=== PATIENT | female | born 1980 | race Caucasian/White ===

== ENCOUNTER → 2016-10-20 | Outpatient (CLI) | payer MEDICAID ==
[~2016-10-20] MED LIST: ATIVAN1 MG PO; BACTRIM DS 8001 TAB PO; BACTRIM DS TAB1 EACH PO; BACTROBAN2% TP; CIPRO 500MG TA500 MG PO; CLONIDINE HCL0.1 M1 PO; FLEXERIL10 MG PO; KEFLEX 500MG.500 MG PO; LORTAB 5/500 501 TAB PO; MEDROL 4MG. DOSE4 MG PO; MELOXICAM7.5 MG PO; NOMEDS; NORCO 325 MG-51 TAB PO; PHENERGAN25 M3 PO; PROMETHAZINE HC25 M1 PO; PROTONIX 40MG T40 MG PO; SEPTRA DS 800 M1 TAB PO; SERTRALINE 50MG50 MG PO; SULFAMETHOXAZOL1 TA6 PO; VIBRAMYCIN 100100 MG PO; VICODIN 5/500 T1 TAB PO; VISTARIL25 M1 PO; ZITHROMAX Z PA250 MG PO; ZOFRAN ODT4 MG PO; ZOFRAN ODT8 M1 PO
[2016-10-20 11:36] LABS: HEMOGLOBIN 16.5 g/dL (12.2-16.2); LYMPH # 2.7 K/mm3 (0.7-4.5); LYMPH % 35.3 % (10-50.0)
[2016-10-20 14:31] LABS: BUN 6 mg/dL (7-18)
[2016-10-20 14:55] LABS: GFR (ESTIMATED) 138 ML/MIN (59-)
== END ==
LOC: LAB 11:15
PROVIDERS: Surgery
DX: K80.00 Calculus of gallbladder with acute cholecystitis without obstruction (principal); Z01.812 Encounter for preprocedural laboratory examination

== ENCOUNTER 2016-10-22 12:04 | Observation (INO) | payer MEDICAID ==
[2016-10-22] VITALS (17 sets, daily range): BP systolic 106–127; BP diastolic 59–95
[~2016-10-22] VITALS: Ht 160 cm; Wt 76.3 kg
[~2016-10-22 12:04] MED LIST changes: -NORCO 325 MG-51 TAB PO; -PHENERGAN25 M3 PO; -PROTONIX 40MG T40 MG PO
--- NOTE | 2016-10-22 12:22 | Emergency Room Report ---
History of Present Illness Time Seen by 1221 Presenting Problem in Triage Pt arrived:Walked Presenting Problem:PT WAS DIAGNOSED WITH GALLSTONES A COUPLE OF WEEKS AGO AND IS SCHEDULED FOR SURGERY ON THE . 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 N Clinical Suspician of Infection? N Mental Status: 1 - Regular (Normal Baseline) Sepsis Risk:Low Sepsis Risk Have you (or family members/close friends) recently traveled outside the [place]? N If Yes, where/when: Have you had exposure to infectious disease within the past month? N TB? Other? Specify: Source patient, RN notes reviewed, family, RN/MD Exam Limitations no limitations Comment Patient is here today with intractable nausea and vomiting, for the past 2-3 days, unable to hold anything down. She stated that she was diagnosed with gallstones approximately 2 weeks ago, scheduled to have elective cholecystectomy on 10/30 w/ Dr Liriano. Patient denies any fever, diarrhea, recent travel or exposure to sick contacts. Patient was prescribed Zofran, however this does not appear to manage her symptoms at this time any longer. Patient's condition appears to be deteriorating recently, at this time being unable to hold any solids or liquids down. ALLERGIES Coded Allergies: Penicillins (10/22/16) Home Medications Active Scripts Ondansetron (Zofran 4MG Odt) 4 MG PO Q6HP PRN NAUSEA AND VOMITING #20 TAB Prov: 08/25/16 Hydroxyzine Pamoate (Vistaril 25MG CAP) 25 MG PO Q6HP PRN vomiting #10 CAP Prov: 09/11/16 Ondansetron (Zofran Odt) 8 MG PO TIDP PRN nausea/vomiting #10 Ref 30 Prov: 08/28/16 PROMETHAZINE HCL (Promethazine 25mg Tab) 25 MG PO Q6HP PRN NAUSEA AND VOMITING #12 TAB Prov: 08/22/16 Reported Medications No Home Medications (NO HOME MEDICATIONS) CLONIDINE HCL (Clonidine 0.1MG) 0.1 MG PO NIGHTLY #30 Meloxicam (Meloxicam 7.5MG) 7.5 MG PO DAILY #30 Sertraline Hcl (Sertraline 50MG) 25 MG PO DAILY #45 History Medical History General CAD? No Angina: No [place]: No Hypertension? No Hyperlipidemia? No CHF? No DVT? No PE? No COPD? No Asthma? No Anemia? No GERD? No Gastric ulcers? No GI Bleed? No Hernia? No Thyroid Problems? No Hypothyroidism? No CVA? No Seizures? No Diabetes? No Renal Insuffiency? No End Stage Renal Disease? No UTI? No Stones? No BPH? No GB Disease: No Nephritic Syndrome? No Asplenia? No Hepatitis? No Sickle Cell Disease? No Arthritis? No Migraines? No Cataracts? No Glaucoma? No MRSA? Yes HIV? No TB? No Anxiety? No Depression? Yes Cancer? Yes Site: CERVICAL More? No Immunization Hx DT/Tetanus 1-4 YRS Surgical Hx Previous Surgery?Y CYROTHERAPY/ABD. 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 Social History Smoking Hx Smoker: Current Every Day Smoker Tobacco: Yes Type Cigarettes Packs/day < 1 Pack Alcohol Alcohol: Yes Review of Systems All Other Systems Reviewed and Negative Gastrointestinal abdominal pain, denies diarrhea, nausea, vomiting Physical Exam Vital Signs Vital Signs Date Time Temp Pulse Resp B/P Pulse O2 O2 Flow FiO2 Ox Delivery Rate 10/22 1620 97.1 75 18 121/60 96 ROOM AIR 10/22 1615 97.1 75 18 121/60 97 10/22 1605 97.5 68 18 125/74 99 ROOM AIR 10/22 1555 77 18 122/73 97 ROOM AIR 10/22 1549 82 16 122/95 95 10/22 1546 97.7 / 1545 18 10/22 1545 76 20 133/92 97 ROOM AIR 10/22 1538 97.7 75 14 116/80 95 10/22 1535 97.7 75 18 116/80 95 ROOM AIR 10/22 1411 98.6 82 16 122/95 98 /10 1346 98.6 82 16 122/95 98 / 1300 98.6 82 16 122/95 98 / 1213 98.6 82 16 122/95 98 General Appearance normal appearance, WD/WN, moderate distress Respiratory Status Yes: trachea midline, chest symmetrical, non tender chest. No: respiratory distress. Lung Sounds bilateral: normal breath sounds, lungs clear. 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 No Comment 1315 - case dw/ Dr Liriano, presenting the emergency room, evaluating patient. Advised general surgeon of patient's presentation and findings, agreeable to accept patient for hospitalization and immediate transfer to OR for [facility]. Care transferred Dr. Liriano at this time. Results/Orders Laboratory Tests 10/22/16 1222: Sodium 138, Potassium 4.0, Chloride 102, Carbon Dioxide 27, BUN 5 L, Creatinine 0.6, Estimated Creat Clear 138, Estimated GFR (MDRD) 112, Glucose 94, Calcium 9.2, Total Bilirubin 0.8, AST 21, ALT 25, Alkaline Phosphatase 76, Total Protein 8.4 H, Albumin 4.1, Globulin 4.3 H, Albumin/Globulin Ratio 1.0 L, Amylase 41, Lipase 112, WBC 9.7, RBC 5.34, Hgb 16.0, Hct 48.7 H, MCV 91.2, RDW 14.7, Plt Count 240, Gran % 68.0, Gran # 6.6, Lymphocytes % 28.5, Monocytes % 3.6, Lymphocytes # 2.8, Monocytes # 0.3, PUBS MCHC 32.9, MCH 30.0 Current Medication Orders Sig/Gabby Start time Last Medication Dose Route Stop Time Status Admin Sertraline HCl 25 MG DAILY 10/23 0900 AC PO Clonidine HCl 0.1 MG QHS 10/22 2100 AC PO Ketorolac 30 MG ONCE ONE 10/22 1545 DC Tromethamine IV 10/22 1546 Lactated Ringer's 1,000 ML .Q25H 10/22 1545 DC 10/22 IV 10/22 1740 1819 Meperidine HCl 12.5 MG [id number] PRN 10/22 1545 DC IV 10/22 1740 Meperidine HCl 25 MG [id number] PRN 10/22 1545 DC IV 10/22 1740 Midazolam HCl 2 MG ONCE ONE 10/22 1545 DC 08 IV 08 1546 1545 Morphine Sulfate 2 MG [id number] PRN 10/22 1545 DC IV 10/22 1740 Ondansetron HCl 4 MG Q4HP PRN 10/22 1545 DC IV 10/22 1740 Midazolam HCl 0 .STK-MED ONE 10/22 1540 DC .ROUTE Hydrocodone Bitart/ 1 TAB Q4HP PRN 10/22 1530 AC Acetaminophen PO Hydrocodone Bitart/ 2 TAB Q4HP PRN 10/22 1530 AC 08 Acetaminophen PO 1850 Lidocaine HCl 20 ML ONCE ONE 10/22 1530 DC 08 IJ 10/22 1531 1436 Morphine Sulfate 1 MG Q1HP PRN 08 1530 AC IV Ondansetron HCl 4 MG Q6HP PRN 10/22 1530 AC IV Sodium Chloride 10 ML PRN PRN 10/22 1530 AC IV Clindamycin Phosphate 900 MG ONCE ONE 10/22 1345 DC 10/22 Sodium Chloride 100 ML IV 10/22 1444 1426 Lactated Ringer's 1,000 ML .Q10H ONE 10/22 1345 AC IV 10/22 2344 Sodium Chloride 10 ML PRN PRN 10/22 1230 AC IV 10/23 1219 Sodium Chloride 1,000 ML .Q1H1M 10/22 1230 DC 10/22 IV 10/22 1330 1230 Sodium Chloride 10 ML PRN PRN 10/22 1230 AC IV 10/23 1219 Sodium Chloride 1,000 ML .STK-MED ONE 10/22 1221 DC IV Orders Procedure Date/time Status COMPLETE METABOLIC PANEL 10/23 0600 Active CBC WITH AUTO DIFF 10/23 0600 Active DIET-FULL LIQUID 10/22 D Active URINALYSIS/COMPLETE 10/22 1221 Active IV SALINE LOCK 10/22 1220 Active LIPASE 10/22 1220 Complete CBC WITH AUTO DIFF 10/22 1220 Complete CHEM 12 PROFILE 10/22 1220 Complete AMYLASE 10/22 1220 Complete ADMIT PATIENT 10/22 UNK Active PULSE OXIMETRY REQUEST 10/22 UNK Active OXYGEN PER HOUR 10/22 UNK Active LEVEL 2 - 1RN & 1 TECH (/MIN) 10/22 UNK Active SEQUENTIAL HOSE SET UP 10/22 UNK Active IV PUSH-NON CHEMO-@ADD-NEWDRUG 10/22 UNK Active IV INFUSION-OP-@ ADD. HOUR 10/22 UNK Active VITAL SIGNS 10/22 UNK Active IV SALINE LOCK 10/22 UNK Active OXYGEN PER NURSE 10/22 UNK Active GEN NSG/PT REQ (NOT FOR MEDS!) 10/22 UNK Active CODE STATUS 10/22 UNK Active PATIENT ACTIVITY ORDER 10/22 UNK Active DVT PROPHYLAXIS INITIATE CHECK 10/22 UNK Active XRAY/CT/US XRAY/CT/US Ultrasound gallbladder US Interpretation by discussed w/radiologist US results unchanged compared to previous study, showing 1.8 cm stone, no thickened guevara, no, bile duct obstruction. Departure Departure Time of Disposition 1324 Disposition Still a Patient Clinical Impression Primary Impression: Intractable nausea and vomiting Qualifiers: Vomiting type: unspecified Qualified Code: R11.2 - Nausea with vomiting, unspecified Secondary Impressions: Cholecystitis Cholelithiasis Qualifiers: Cholelithiasis location: other site Biliary obstruction: with biliary obstruction Qualified Code: K80.81 - Other cholelithiasis with obstruction Condition STABLE ED Critical Care Critical Care No at 1958
--- NOTE | 2016-10-22 12:22 | Emergency Room Report ---
History of Present Illness Time Seen by [id number] Presenting Problem in Triage Pt arrived:Walked Presenting Problem:PT WAS DIAGNOSED WITH GALLSTONES A COUPLE OF WEEKS AGO AND IS SCHEDULED FOR SURGERY ON THE . 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 N Clinical Suspician of Infection? N Mental Status: 1 - Regular (Normal Baseline) Sepsis Risk:Low Sepsis Risk Have you (or family members/close friends) recently traveled outside the [place]? N If Yes, where/when: Have you had exposure to infectious disease within the past month? N TB? Other? Specify: Source patient, RN notes reviewed, family, RN/MD Exam Limitations no limitations Comment Patient is here today with intractable nausea and vomiting, for the past 2-3 days, unable to hold anything down. She stated that she was diagnosed with gallstones approximately 2 weeks ago, scheduled to have elective cholecystectomy on 10/30 w/ Dr Liriano. Patient denies any fever, diarrhea, recent travel or exposure to sick contacts. Patient was prescribed Zofran, however this does not appear to manage her symptoms at this time any longer. Patient's condition appears to be deteriorating recently, at this time being unable to hold any solids or liquids down. ALLERGIES Coded Allergies: Penicillins (10/22/16) Home Medications Active Scripts Ondansetron (Zofran 4MG Odt) 4 MG PO Q6HP PRN NAUSEA AND VOMITING #20 TAB Prov: 08/25/16 Hydroxyzine Pamoate (Vistaril 25MG CAP) 25 MG PO Q6HP PRN vomiting #10 CAP Prov: 09/11/16 Ondansetron (Zofran Odt) 8 MG PO TIDP PRN nausea/vomiting #10 Ref 30 Prov: 08/28/16 PROMETHAZINE HCL (Promethazine 25mg Tab) 25 MG PO Q6HP PRN NAUSEA AND VOMITING #12 TAB Prov: 08/22/16 Reported Medications No Home Medications (NO HOME MEDICATIONS) CLONIDINE HCL (Clonidine 0.1MG) 0.1 MG PO NIGHTLY #30 Meloxicam (Meloxicam 7.5MG) 7.5 MG PO DAILY #30 Sertraline Hcl (Sertraline 50MG) 25 MG PO DAILY #45 History Medical History General CAD? No Angina: No [place]: No Hypertension? No Hyperlipidemia? No CHF? No DVT? No PE? No COPD? No Asthma? No Anemia? No GERD? No Gastric ulcers? No GI Bleed? No Hernia? No Thyroid Problems? No Hypothyroidism? No CVA? No Seizures? No Diabetes? No Renal Insuffiency? No End Stage Renal Disease? No UTI? No Stones? No BPH? No GB Disease: No Nephritic Syndrome? No Asplenia? No Hepatitis? No Sickle Cell Disease? No Arthritis? No Migraines? No Cataracts? No Glaucoma? No MRSA? Yes HIV? No TB? No Anxiety? No Depression? Yes Cancer? Yes Site: CERVICAL More? No Immunization Hx DT/Tetanus 1-4 YRS Surgical Hx Previous Surgery?Y CYROTHERAPY/ABD. 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 Social History Smoking Hx Smoker: Current Every Day Smoker Tobacco: Yes Type Cigarettes Packs/day < 1 Pack Alcohol Alcohol: Yes Review of Systems All Other Systems Reviewed and Negative Gastrointestinal abdominal pain, denies diarrhea, nausea, vomiting Physical Exam Vital Signs Vital Signs Date Time Temp Pulse Resp B/P Pulse O2 O2 Flow FiO2 Ox Delivery Rate 10/22 1620 97.1 75 18 121/60 96 ROOM AIR 10/22 1615 97.1 75 18 121/60 97 10/22 1605 97.5 68 18 125/74 99 ROOM AIR 10/22 1555 77 18 122/73 97 ROOM AIR 10/22 1549 82 16 122/95 95 10/22 1546 97.7 / 1545 18 10/22 1545 76 20 133/92 97 ROOM AIR 10/22 1538 97.7 75 14 116/80 95 10/22 1535 97.7 75 18 116/80 95 ROOM AIR 10/22 1411 98.6 82 16 122/95 98 /10 1346 98.6 82 16 122/95 98 / 1300 98.6 82 16 122/95 98 / 1213 98.6 82 16 122/95 98 General Appearance normal appearance, WD/WN, moderate distress Respiratory Status Yes: trachea midline, chest symmetrical, non tender chest. No: respiratory distress. Lung Sounds bilateral: normal breath sounds, lungs clear. Cardiovascular normal exam, regular rate/rhythm, no peripheral edema, no gallop, no JVD, no murmur, no rub, normal peripheral pulses Gastrointestinal normal bowel sounds, soft, no organomegaly, rebound (RUQ), tenderness (RUQ) Extremities non-tender, normal range of motion, normal inspection Neurologic alert, machine compositor II-XII nml as tested, normal exam, oriented x 3 Mental status normal mood/affect Skin intact, normal color, warm/dry Medical Decision Making LABS/Meds/Orders Pt receiving controlled substance in ED? No Comment 1315 - case dw/ Dr Liriano, presenting the emergency room, evaluating patient. Advised general surgeon of patient's presentation and findings, agreeable to accept patient for hospitalization and immediate transfer to OR for [facility]. Care transferred Dr. Liriano at this time. Results/Orders Laboratory Tests 10/22/16 1222: Sodium 138, Potassium 4.0, Chloride 102, Carbon Dioxide 27, BUN 5 L, Creatinine 0.6, Estimated Creat Clear 138, Estimated GFR (MDRD) 112, Glucose 94, Calcium 9.2, Total Bilirubin 0.8, AST 21, ALT 25, Alkaline Phosphatase 76, Total Protein 8.4 H, Albumin 4.1, Globulin 4.3 H, Albumin/Globulin Ratio 1.0 L, Amylase 41, Lipase 112, WBC 9.7, RBC 5.34, Hgb 16.0, Hct 48.7 H, MCV 91.2, RDW 14.7, Plt Count 240, Gran % 68.0, Gran # 6.6, Lymphocytes % 28.5, Monocytes % 3.6, Lymphocytes # 2.8, Monocytes # 0.3, PUBS MCHC 32.9, MCH 30.0 Current Medication Orders Sig/Gabby Start time Last Medication Dose Route Stop Time Status Admin Sertraline HCl 25 MG DAILY 10/23 0900 AC PO Clonidine HCl 0.1 MG QHS 10/22 2100 AC PO Ketorolac 30 MG ONCE ONE 10/22 1545 DC Tromethamine IV 10/22 1546 Lactated Ringer's 1,000 ML .Q25H 10/22 1545 DC 10/22 IV 10/22 1740 1819 Meperidine HCl 12.5 MG [id number] PRN 10/22 1545 DC IV 10/22 1740 Meperidine HCl 25 MG [id number] PRN 10/22 1545 DC IV 10/22 1740 Midazolam HCl 2 MG ONCE ONE 10/22 1545 DC 08 IV 08 1546 1545 Morphine Sulfate 2 MG [id number] PRN 10/22 1545 DC IV 10/22 1740 Ondansetron HCl 4 MG Q4HP PRN 10/22 1545 DC IV 10/22 1740 Midazolam HCl 0 .STK-MED ONE 10/22 1540 DC .ROUTE Hydrocodone Bitart/ 1 TAB Q4HP PRN 10/22 1530 AC Acetaminophen PO Hydrocodone Bitart/ 2 TAB Q4HP PRN 10/22 1530 AC 08 Acetaminophen PO 1850 Lidocaine HCl 20 ML ONCE ONE 10/22 1530 DC 08 IJ 10/22 1531 1436 Morphine Sulfate 1 MG Q1HP PRN 08 1530 AC IV Ondansetron HCl 4 MG Q6HP PRN 10/22 1530 AC IV Sodium Chloride 10 ML PRN PRN 10/22 1530 AC IV Clindamycin Phosphate 900 MG ONCE ONE 10/22 1345 DC 10/22 Sodium Chloride 100 ML IV 10/22 1444 1426 Lactated Ringer's 1,000 ML .Q10H ONE 10/22 1345 AC IV 10/22 2344 Sodium Chloride 10 ML PRN PRN 10/22 1230 AC IV 10/23 1219 Sodium Chloride 1,000 ML .Q1H1M 10/22 1230 DC 10/22 IV 10/22 1330 1230 Sodium Chloride 10 ML PRN PRN 10/22 1230 AC IV 10/23 1219 Sodium Chloride 1,000 ML .STK-MED ONE 10/22 1221 DC IV Orders Procedure Date/time Status COMPLETE METABOLIC PANEL 10/23 0600 Active CBC WITH AUTO DIFF 10/23 0600 Active DIET-FULL LIQUID 10/22 D Active URINALYSIS/COMPLETE 10/22 1221 Active IV SALINE LOCK 10/22 1220 Active LIPASE 10/22 1220 Complete CBC WITH AUTO DIFF 10/22 1220 Complete CHEM 12 PROFILE 10/22 1220 Complete AMYLASE 10/22 1220 Complete ADMIT PATIENT 10/22 UNK Active PULSE OXIMETRY REQUEST 10/22 UNK Active OXYGEN PER HOUR 10/22 UNK Active LEVEL 2 - 1RN & 1 TECH (/MIN) 10/22 UNK Active SEQUENTIAL HOSE SET UP 10/22 UNK Active IV PUSH-NON CHEMO-@ADD-NEWDRUG 10/22 UNK Active IV INFUSION-OP-@ ADD. HOUR 10/22 UNK Active VITAL SIGNS 10/22 UNK Active IV SALINE LOCK 10/22 UNK Active OXYGEN PER NURSE 10/22 UNK Active GEN NSG/PT REQ (NOT FOR MEDS!) 10/22 UNK Active CODE STATUS 10/22 UNK Active PATIENT ACTIVITY ORDER 10/22 UNK Active DVT PROPHYLAXIS INITIATE CHECK 10/22 UNK Active XRAY/CT/US XRAY/CT/US Ultrasound gallbladder US Interpretation by discussed w/radiologist US results unchanged compared to previous study, showing 1.8 cm stone, no thickened guevara, no, bile duct obstruction. Departure Departure Time of Disposition 1324 Disposition Still a Patient Clinical Impression Primary Impression: Intractable nausea and vomiting Qualifiers: Vomiting type: unspecified Qualified Code: R11.2 - Nausea with vomiting, unspecified Secondary Impressions: Cholecystitis Cholelithiasis Qualifiers: Cholelithiasis location: other site Biliary obstruction: with biliary obstruction Qualified Code: K80.81 - Other cholelithiasis with obstruction Condition STABLE ED Critical Care Critical Care No at 1958
[2016-10-22 12:30] LABS: LYMPH # 2.8 K/mm3 (0.7-4.5); LYMPH % 28.5 % (10-50.0)
--- NOTE | 2016-10-22 14:08 | RADIOLOGY REPORT PS360 ---
US GALLBLADDER (ABD LTD) HISTORY: GALLSTONES WITH INCREASED PAIN ORDERING PHYSICIAN: Segun Russell MD PATIENT AGE: 36 years COMPARISON: 10/07/2016 FINDINGS: PANCREAS: Obscured by overlying gas LIVER: No focal liver lesions demonstrated. Homogeneous echogenicity. No intrahepatic biliary ductal dilatation evident RIGHT KIDNEY: Unremarkable. Normal size and echogenicity. No hydronephrosis GALLBLADDER: The stone is present in the body of the gallbladder measuring up to 1.8 cm. No biliary dilatation, gallbladder wall thickening, or pericholecystic fluid. IMPRESSION: Cholelithiasis
--- NOTE | 2016-10-22 15:30 | Operative Note ---
Surgeon/Diagnoses Surgeon/Rat Culturist(s) Date of procedure: 10/22/16 Surgeon: MD Lew Elizabeth Diagnoses Pre-op diagnosis: Acute on chronic calculus cholecystitis Post-op diagnosis Same Procedure Procedure Procedure: Laparoscopic cholecystectomy Indications: LYNDA JOEL is a 36 year-old Female with a history of RIGHT upper quadrant abdominal pain and significant nausea/vomiting over the past 3 months. She has radiographically evidence of chronic calculus cholecystitis. She was seen for outpatient evaluation was scheduled for cholecystectomy on October 30, 2016. Unfortunately, she presented to the emergency department with increasing nausea and vomiting and the decision was made to proceed expediently. She was diagnosed with acute on chronic calculus cholecystitis and the decision was made to proceed with laparoscopic cholecystectomy. Findings: Moderate pericholecystic fat stranding Mild wall thickening Procedure Description: After informed consent was obtained, the patient was taken to the operating room and placed in the supine position. General anesthesia was induced and the patient's abdomen was prepped and draped in a sterile fashion. After infiltration with local anesthetic an infraumbilical incision was made. A Veress needle was placed in position. The abdomen was insufflated. A 5 mm optical trocar was placed in position. Under direct visualization, 2 additional 5 mm trocars were placed in the RIGHT upper quadrant. A 12 mm trocar was placed in the subxiphoid position. The gallbladder was elevated up and over the liver margin. Pericholecystic fat stranding and mild wall thickening were noted. The tissue around the cystic duct was carefully dissected. Clips were placed proximally and the duct was transected at the infundibulum utilizing harmonic christelle. Harmonic christelle were then utilized to remove the gallbladder from the liver margin. The gallbladder was placed in a retrieval bag and removed through the subxiphoid trocar site. The RIGHT upper quadrant was thoroughly irrigated. No active bleeding or bile leak was noted. The fascia at the subxiphoid trocar site was reapproximated utilizing the reena-close device. Pneumoperitoneum was released as the remaining trocars were removed. All wounds were irrigated and skin was closed with 4-0 Monocryl in a subcuticular fashion. Steri-Strips were applied and the patient's anesthetic agents were reversed. After extubation, the patient was transferred to recovery in stable condition. EBL (ml): 15 Anesthesia: GETA Complications: No immediate Specimens: Gallbladder and contents Disposition Disposition: Stable to recovery from where she will be transferred to the floor for observation secondary to significant nausea/vomiting and concomitant dehydration. at [id number]
--- NOTE | 2016-10-22 15:38 | Anesthesia Record ---
Anesthesia Record Part I Total IV fluids: 1500 EBL (ml): 0 Urine Output: 0 B/P: 116/80 % SaO2: 95 Pulse: 75 Resps: 14 Temp: 97.7 Patient is: Awake, Stable Stable to PACU at: 1535 at 1534
--- NOTE | 2016-10-22 15:39 | Anesthesia Record ---
Anesthesia Record Part II Discharge time: 1605 Destination: Second Floor PACU nurse assessment review? Yes Patient is: Awake, Stable Anesthesia complications? No at [id number]
--- NOTE | 2016-10-22 16:26 | PHARMACY CLINIC NOTE ---
Patient Demographics Patient Demographics Admission date: 10/22/16 Date: 10/22/16 Time: 162 Allergies Coded Allergies: Penicillins (10/22/16) HEIGHT- FT: 5 IN: 3.00 K.[id number] VTE General Information Labs: Laboratory Tests 10/22 1222 Hematology Hgb (12.2 - 16.2 g/dL) 16.0 Hct (37.0 - 47.0 %) 48.7 H Plt Count (142 - 424 K/mm3) 240 Disclaimer The following section includes nursing documentation that has been pulled in for pharmacy review. Clinical trial participant? No VTE prophylaxis NQF [id number] VTE prophylaxis ordered? Yes Type of prophylaxis/treatment: ICD at [id number]
--- OUTSIDE RECORDS SUMMARY | 2016-10-22 18:09 | External Medical Summary Rpt ---
Author Author , BRAYDEN OWEN Address Unknown Phone [email or web address] Care Team Providers Care Television News Video Editor Name Role Phone ARMIDA HUFFMAN Unavailable Unavailable SANTI HANCOCK Unavailable Unavailable [facility] Un[facility] Unavailable INC, [facility], Unavailable Unavailable [facility] THOMAS, THOMAS Unavailable Unavailable [facility] Unavailable Unavailable IM[facility]ING [facility], [facility], Unavailable Unavailable PLLC, [facility], [facility] Purpose Continuity of Care Document - 06-22-2011 through 2016 Problems Code Diagnosis DOS Provider Status R1110 VOMITING 09-11-2016 [facility] R1111 VOMITING 09-11-2016 [facility] NA[facility] INC J0100 ACUTE 09-10-2016 [facility] SINUSITIS GROUP UNSPECIFIED R1011 RIGHT UPPER 09-10-2016 [facility] PAIN GROUP R05 COUGH 08-31-2016 [facility] R112 NAUSEA WITH 08-31-2016 [facility] VOMITING PHYSICIANS UNSPECIFIED GROUP R631 POLYDIPSIA 08-31-2016 [facility] Medications Na ND Rx Da Fi Fi Am Da Di Ph RX Ph St me C No te ll ll ou ys ag ar # ys at rm s nt no ma ic us Or Da si cy ia de te s n re d CE 68 06 07 20 10 00 HO Ac PH 18 -2 -2 .0 00 ME ti AL 00 9- 8- 06 TO ve EX 12 20 20 08 WN IN 20 17 17 98 2 96 PH 50 AR 0 MA MG CY CA OF PS UL CY E NT HI AN A HY 00 06 07 [address] 18 -3 -2 .0 00 ME ti OX 50 0- 8- 00 06 TO ve YZ 67 20 20 08 WN IN 40 17 17 99 E 5 71 PH PA AR M MA 25 CY MG OF CA CY P NT HI AN A ON 00 06 07 12 4 00 HO Ac DA 37 -2 -2 .0 00 ME ti NS 87 1- 1- 00 06 TO ve ET 73 20 20 08 WN RO 29 17 17 94 N 3 10 PH OD AR T MA 4 CY MG OF TA BL CY ET NT HI AN A SE 65 06 07 45 30 00 HO Ac RT 86 -2 -2 .0 00 ME ti RA 20 2- 1- 00 06 TO ve LI 01 20 20 08 WN NE 20 17 17 95 5 26 PH HC AR L MA 50 CY MG OF TA CY BL NT ET HI AN A ME 68 06 07 30 30 00 HO Ac LO 38 -2 -2 .0 00 ME ti XI 20 2- 1- 00 06 TO ve CA 05 20 20 08 WN M 00 17 17 95 7. 5 25 PH 5 AR MG MA CY TA BL OF ET CY NT HI AN A CL 68 06 07 30 30 00 HO Ac ON 00 -2 -2 .0 00 ME ti ID 10 2- 1- 00 06 TO ve IN 23 20 20 08 WN E 70 17 17 95 HC 3 24 PH L AR 0. MA 1 CY MG OF TA BL CY ET NT HI AN A LA 68 06 07 12 3 00 WA Ac OM 38 -1 -0 .0 00 L- ti ET 20 0- 7- 00 07 MA ve BOND 04 20 20 49 RT ZI 10 17 17 27 NE 1 49 PH AR 25 MA CY MG #5 TA 91 BL ET AZ 68 06 07 6. 5 00 HO Ac IT 18 -1 -0 00 00 ME ti HR 00 3- 7- 0 06 TO ve OM 16 20 20 08 WN YC 01 17 17 88 IN 3 51 PH AR 25 MA 0 CY MG OF TA BL CY ET NT HI AN A COCHRAN 53 06 07 14 7 00 HO Ac LF 74 -1 -0 .0 00 ME ti AM 60 6- 7- 00 06 TO ve ET 27 20 20 08 WN HO 20 17 17 91 XA 5 56 PH ZO AR LE MA -T CY MP OF DS CY TA NT BL HI ET AN A ME 68 06 07 21 6 00 HO Ac TH 00 -1 -0 .0 00 ME ti YL 10 3- 7- 00 06 TO ve LA 00 20 20 08 WN ED 50 17 17 88 NI 1 50 PH SO AR LO MA NE CY 4 OF MG CY DO NT SE HI PK AN A ON 00 06 07 20 5 00 HO Ac DA 37 -1 -0 .0 00 ME ti NS 87 3- 7- 00 06 TO ve ET 73 20 20 08 WN RO 29 17 17 88 N 3 49 PH OD AR T MA 4 CY MG OF TA BL CY ET NT HI AN A ME 68 05 06 30 30 00 HO Ac LO 38 -2 -2 .0 00 ME ti XI 20 2- 3- 00 06 TO ve CA 05 20 20 08 WN M 00 17 17 36 7. 5 48 PH 5 AR MG MA CY TA BL OF ET CY NT HI AN A CL 68 05 06 30 30 00 HO Ac ON 00 -2 -2 .0 00 ME ti ID 10 2- 3- 00 06 TO ve IN 23 20 20 08 WN E 70 17 17 36 HC 3 49 PH L AR 0. MA 1 CY MG OF TA BL CY ET NT HI AN A SE 65 05 06 45 30 00 HO Ac RT 86 -2 -2 .0 00 ME ti RA 20 2- 3- 00 06 TO ve LI 01 20 20 08 WN NE 20 17 17 36 5 50 PH HC AR L MA 50 CY MG OF TA CY BL NT ET HI AN A SE 65 04 05 45 30 00 HO Ac RT 86 -1 -1 .0 00 ME ti RA 20 8- 2- 00 06 TO ve LI 01 20 20 08 WN NE 20 17 17 36 5 50 PH HC AR L MA 50 CY MG OF TA CY BL NT ET HI AN A ME 68 04 05 30 30 00 HO Ac LO 38 -1 -1 .0 00 ME ti XI 20 8- 2- 00 06 TO ve CA 05 20 20 08 WN M 00 17 17 36 7. 5 48 PH 5 AR MG MA CY TA BL OF ET CY NT HI AN A CL 68 04 05 30 30 00 HO Ac ON 00 -1 -1 .0 00 ME ti ID 10 8- 2- 00 06 TO ve IN 23 20 20 08 WN E 70 17 17 36 HC 3 49 PH L AR 0. MA 1 CY MG OF TA BL CY ET NT HI AN A HY 45 03 04 [address] 80 -3 -2 .0 00 ME ti OC 20 0- 1- 00 06 TO ve OR 43 20 20 08 WN TI 80 17 17 42 SO 3 20 PH NE AR MA 1% CY CR OF EA M CY NT HI AN A CL 68 03 04 30 30 00 HO Ac ON 00 -2 -2 .0 00 ME ti ID 10 2- 1- 00 06 TO ve IN 23 20 20 08 WN E 70 17 17 36 HC 3 49 PH L AR 0. MA 1 CY MG OF TA BL CY ET NT HI AN A ME 68 03 04 30 30 00 HO Ac LO 38 -2 -2 .0 00 ME ti XI 20 2- 1- 00 06 TO ve CA 05 20 20 08 WN M 00 17 17 36 7. 5 48 PH 5 AR MG MA CY TA BL OF ET CY NT HI AN A SE 65 03 04 45 30 00 HO Ac RT 86 -2 -2 .0 00 ME ti RA 20 2- 1- 00 06 TO ve LI 01 20 20 08 WN NE 20 17 17 36 5 50 PH HC AR L MA 50 CY MG OF TA CY BL NT ET HI AN A TE 24 03 04 28 14 00 HO Ac RB 38 -3 -2 .3 00 ME ti IN 50 0- 1- 99 06 TO ve AF 52 20 20 08 WN IN 40 17 17 42 E 3 19 PH 1% AR MA CR CY EA M OF CY NT HI AN A Results Labs Lab Lab Date Result Refere Interp Status Commen Order Detail nces retati t Range on Urinalysis dipstick W Reflex Microscopic panel in Urine (09-11-2016 09:30) Bacteri 3+ O complet a 017 ed [Presen 09:30 ce] in Urine sedimen t by Light microsc opy Mucus 1+ OCC complet [Presen 017 ed ce] in 09:30 Urine sedimen t by Light microsc opy Erythro OCC 0 complet cytes 017 ed [Presen 09:30 ce] in Urine sedimen t by Light microsc opy Epithel 5-10 0#/hp complet ial 017 f - ed cells.s 09:30 5#/hp quamous f [Presen ce] in Urine sedimen t by Microsc opy high power field Urinalysis dipstick W Reflex Microscopic panel in Urine (09-11-2016 09:30) Appeara CLOUDY CLEAR complet nce of 017 ed Urine 09:30 Bilirub NEGATIV NEG complet in 017 E ed [Presen 09:30 ce] in Urine by Test strip Erythro TRACE-I NEG complet cytes 017 NTACT ed [Presen 09:30 ce] in Urine Color YELLOW YELLOW complet of 017 ed Urine 09:30 Ketones NEGATIV NEG complet 017 E ed [Presen 09:30 ce] in Urine by Automat ed test strip Mucus 09-11-2 NEGATIV NEG complet [Presen 017 E ed ce] in 09:30 Urine sedimen t by Light microsc opy Nitrite NEGATIV NEG complet 017 E ed [Presen 09:30 ce] in Urine by Test strip Urobili 09-11-2 1.0 NEG complet nogen 017 ed [Presen 09:30 ce] in Urine by Test strip Hemoglobin A1c in Blood (08-31-2016 16:21) Hemoglo 5.3 % 0.0% Normal complet bin A1c 017 - ed in 16:21 7.0% Blood Urinalysis macro (dipstick) panel in Urine (08-28-2016 14:21) Appeara Sl CLEAR complet nce of 017 Cloudy ed Urine 14:21 Bilirub 1+ NEG Abnorma complet in 017 l ed [Presen 14:21 ce] in Urine by Test strip Erythro TRACE NEG Abnorma complet cytes 017 l ed [Presen 14:21 ce] in Urine Color OTHER YELLOW complet of 017 ed Urine 14:21 Ketones NEGATIV NEG complet 017 E ed [Presen 14:21 ce] in Urine by Automat ed test strip Leukocy 08-28- TRACE NEG Abnorma complet te 017 l ed esteras 14:21 e [Presen ce] in Urine by Automat ed test strip Nitrite NEGATIV NEG complet 017 E ed [Presen 14:21 ce] in Urine by Test strip Urobili 16-2 2.0 NEG complet nogen 017 ed [Presen 14:21 ce] in Urine by Test strip Urine test by rapid immunoassa (08-28-2016 14:17) Urine 08-28- NEGATIV NEG complet pregnan 017 E ed cy test 14:17 by rapid immunoa ssa Reagin Ab [Presence] in Unspecified specimen by VDRL (06-22-2011 10:50) Reagin NON-JETT complet Ab 012 CTIVE ed [Presen 10:50 ce] in Unspeci fied specime n by VDRL Reagin Ab [Presence] in Unspecified specimen by VDRL (06-22-2011 10:50) COLLECT JH complet OR 012 ed 10:50 ETHNICI C complet TY 012 ed 10:50 PURPOSE ROUTINE complet OF 012 ed EXAM 10:50 SPECIME BLOOD complet N 012 ed SOURCE 10:50 CHART [id number] complet NUMBER 012 ed 10:50 Reagin Pending complet Ab 012 ed [Presen 10:50 ce] in Unspeci fied specime n by VDRL Procedures Procedure DOS Code Location Performer Comment URNLS DIP 85615 [facility] 7 [facility] STICK/TAB INC INC LET REAGENT AUTO MICROSCOP Y URINE 49237 [facility] C[facility]NER[facility] 7 [facility] TEST INC INC VISUAL COLOR CMPRSN METHS CULTURE 13692 [facility] BACTERIAL 7 [facility] INC INC QUANTTATI VE COLONY COUNT URINE HEMOGLOBI 17563 [facility] CISNER[facility] N 7 [facility] GLYCOSYLA INC INC OANH A1C GENERAL 46812 [facility]NER[facility] 7 [facility] [place] [address] [facility] C[facility]NER[facility] FREE 7 [facility] THYROXINE INC INC RADIOLOGI 76548 [facility] C EXAM 7 MEDICAL CHEST 2 IMAGING VIEWS ASS FRONTAL&L ATERAL Encounters Encounter Start End Date Code Location Performer Type Date [facility] AMELIA - 7 7 [facility] OUTPATIEN INC T EMERGENCY 59638 AMELIA 7 7 [facility] DEPARTMEN INC T VISIT LOW/MODER SEVERITY EMERGENCY 98631 [facility] THOMAS 7 7 PHYSICIAN DEPARTMEN S, [facility] T VISIT HIGH/URGE NT SEVERITY OFFICE 61019 [facility]YSICIAN T VISIT S GROUP 25 MINUTES [facility] - 7 7 MEM HOSP OUTPATIEN INC T OFFICE 12684 [facility] SANTI OUTPATI 7 7 PHYSICIAN T VISIT S GROUP 25 MINUTES
--- OUTSIDE RECORDS SUMMARY | 2016-10-22 18:09 | External Medical Summary Rpt ---
Author Author , BRAYDEN OWEN Address Unknown Phone .OS[facility] Records Management Care Team Providers Care Robotic Maintenance Technician Name Role Phone ARMIDA HUFFMAN Unavailable Unavailable SANTI HANCOCK Unavailable Unavailable [facility] Unavailable Unavailable INC, [facility], Unavailable Unavailable [facility] THOMAS, THOMAS Unavailable Unavailable [facility] Unavailable Unavailable [facility], [facility], Unavailable Unavailable PLLC, [facility], [facility] Purpose Continuity of Care Document - 06-22-2011 through 2016 Problems Code Diagnosis DOS Provider Status R1110 VOMITING 09-11-2016 [facility] R1111 VOMITING 09-11-2016 [facility] INC J0100 ACUTE 09-10-2016 [facility] MAXILLARY PHYSICIANS SINUSITIS GROUP UNSPECIFIED R1011 RIGHT UPPER 09-10-2016 [facility]YSIC[facility] PAIN GROUP R05 COUGH 08-31-2016 [facility] R112 NAUSEA WITH 08-31-2016 [facility] VOMITING PHYSICIANS UNSPECIFIED GROUP R631 POLYDIPSIA 08-31-2016 [facility] Medications Na ND Rx Da [...] BL CY ET NT HI AN A ID 68 06 07 12 3 00 WA [...] 10 3- 7- 00 06 TO ve ID 00 20 20 08 WN ED 50 [...] complet N 012 ed SOURCE 10:50 CHART [id number] complet NUMBER 012 ed 10:50 Reagin Pending complet Ab 012 ed [Presen 10:50 ce] in Unspeci fied specime n by VDRL Procedures Procedure DOS Code Location Performer Comment URNLS DIP 14321 [facility]NER[facility] 7 [facility] STICK/TAB INC INC LET REAGENT AUTO MICROSCOP Y URINE 30560 [facility] 7 [facility] TEST INC INC VISUAL COLOR CMPRSN METHS CULTURE 64909 [facility] BACTERIAL 7 MEM H[facility] HOS[facility] INC INC QUANTTATI VE COLONY COUNT URINE HEMOGLOBI 46830 [facility] C[facility]NER[facility] N 7 [facility] GLYCOSYLA INC INC OANH A1C GENERAL 99185 [facility] 7 [facility] [place] [place] [address] [facility] C[facility]NER[facility] FREE 7 [facility] THYROXINE INC INC RADIOLOGI 98462 [facility] C EXAM 7 MEDICAL CHEST 2 IMAGING VIEWS ASS FRONTAL&L ATERAL Encounters Encounter Start End Date Code Location Performer Type Date [facility]IA - 7 7 [facility] OUTPATIEN INC T EMERGENCY 05741 AM[facility] 7 7 [facility] DEPARTMEN INC T VISIT LOW/MODER SEVERITY EMERGENCY 58758 [facility] THOMAS 7 7 PHYSICIAN DEPARTMEN S, [facility] T VISIT HIGH/URGE NT SEVERITY OFFICE 79181 [facility] T [facility]ISIT S GROUP 25 MINUTES [facility] AMELIA - 7 7 MEM HOSP OUTPATIEN INC T OFFICE 67095 [facility] SANTI OUTPATI 7 7 PHYSICIAN T VISIT S GROUP 25 MINUTES
--- OUTSIDE RECORDS SUMMARY | 2016-10-22 18:10 | External Medical Summary Rpt ---
Demographics Preferred Language Macedonian Marital Status Unknown Spiritism Affiliation Unknown Race Unknown Ethnic Group Unknown Author Author GABY Address Unknown Phone Immunization No patient found.
--- OUTSIDE RECORDS SUMMARY | 2016-10-22 18:10 | External Medical Summary Rpt ---
Author Author , BRAYDEN OWEN Address Unknown Phone [email or web address] Care Team Providers Care Legal Collector Name Role Phone SANTI HANCOCK Unavailable Unavailable [facility] Unavailable Unavailable INC, [facility], Unavailable Unavailable [facility] MARTHA THOMAS Unavailable Unavailable [facility] Unavailable Unavailable IM[facility]ING [facility], [facility], Unavailable Unavailable PLLC, [facility], [facility] Purpose Continuity of Care Document - 07-03-2016 through 2016 Problems Code Diagnosis DOS Provider Status R1110 VOMITING 09-11-2016 [facility] R1111 VOMITING 09-11-2016 [facility] INC J0100 ACUTE 09-10-2016 [facility] PHYS[facility]ANS SINUSITIS GROUP UNSPECIFIED R1011 RIGHT UPPER 09-10-2016 [facility] PAIN GROUP R05 COUGH 08-31-2016 [facility] R112 NAUSEA WITH 08-31-2016 [facility] VOMITING PHYSICIANS UNSPECIFIED GROUP R631 POLYDIPSIA 08-31-2016 [facility] Medications Na ND Rx [...] BL CY ET NT HI AN A AK 68 06 07 12 3 00 WA [...] 10 3- 7- 00 06 TO ve AK 00 20 20 08 WN ED 50 [...] .3 00 ME ti IN 50 0- - 99 06 TO ve AF 52 20 20 08 WN IN 40 17 17 42 E 3 19 PH 1% AR MA CR CY EA M OF CY NT HI AN A Procedures Procedure DOS Code Location Performer Comment URINE 79857 [facility] C[facility]NEROS 7 [facility] TEST INC INC VISUAL COLOR CMPRSN METHS CULTURE 30423 [facility] BACTERIAL 7 [facility] INC INC QUANTTATI VE COLONY COUNT URINE URNLS DIP 97574 [facility] C[facility]NER[facility] 7 [facility] STICK/TAB INC INC LET REAGENT AUTO MICROSCOP Y HEMOGLOBI 63459 [facility] N 7 [facility] GLYCOSYLA INC INC OANH A1C RADIOLOGI 55683 [facility] C EXAM 7 [facility] CHEST 2 INC INC VIEWS FRONTAL&[place] [address] [facility] C[facility]NER[facility] FREE 7 [facility] THYROXINE INC INC GENERAL 07027 [facility] 7 [facility] PANEL INC INC Encounters Encounter Start End Date Code Location Performer Type Date EMERGENCY 32866 [facility] 7 7 [facility] DEPARTMEN INC T VISIT LOW/MODER SEVERITY HOSPITAL [facility] Ignacio 7 [facility] OUTPATIEN INC T EMERGENCY 06032 [facility] THOMAS 7 7 PHYSICIAN DEPARTMEN S, [facility] T VISIT HIGH/URGE NT SEVERITY OFFICE 73681 [facility] RADHA [facility] 7 7 PHYSICIAN T VISIT S GROUP 25 MINUTES HOSPITAL [facility] - 7 [address] [facility] OUTPATIEN [facility] T OFFICE 28586 [facility] 7 7 PHYSICIAN T VISIT S GROUP 25 MINUTES
--- OUTSIDE RECORDS SUMMARY | 2016-10-22 18:10 | External Medical Summary Rpt ---
Demographics Preferred Language Albanian Marital Status Unknown Temple Affiliation Unknown Race Unknown Ethnic Group Unknown Author Author GABY Address Unknown Phone Immunization No patient found.
--- OUTSIDE RECORDS SUMMARY | 2016-10-22 18:10 | External Medical Summary Rpt ---
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, Unavailable Unavailable [facility] MARTHA THOMAS Unavailable Unavailable [facility] Unavailable Unavailable IM[facility]ING ASS, [facility], Unavailable Unavailable PLLC, [facility], [facility] Purpose Continuity of Care Document - 07-03-2016 through 2016 Problems Code Diagnosis DOS Provider Status R1110 VOMITING 09-11-2016 [facility] R1111 VOMITING 09-11-2016 [facility] INC J0100 ACUTE 09-10-2016 [facility] MAX[facility] PHYSICIANS SINUSITIS GROUP UNSPECIFIED R1011 RIGHT UPPER 09-10-2016 [facility] PAIN GROUP R05 COUGH 08-31-2016 [facility] R112 NAUSEA WITH 08-31-[facility] PHYSICIANS UNSPECIFIED GROUP R631 POLYDIPSIA 08-31-2016 [facility] Medications Na ND Rx [...] BL CY ET NT HI AN A HI 68 06 07 12 3 00 WA [...] 10 3- 7- 00 06 TO ve HI 00 20 20 08 WN ED 50 [...] Procedure DOS Code Location Performer Comment URINE 37737 [facility] CISNEROS 7 [facility] TEST INC INC VISUAL COLOR CMPRSN METHS CULTURE 08101 [facility] BACTERIAL 7 [facility] INC INC QUANTTATI VE COLONY COUNT URINE URNLS DIP 71208 [facility] C[facility]NER[facility] 7 [facility] STICK/TAB INC INC LET REAGENT AUTO MICROSCOP Y HEMOGLOBI 86342 [facility] CISNEROS N 7 [facility] GLYCOSYLA INC INC OANH A1C RADIOLOGI 73465 [facility] C EXAM 7 [facility] CHEST 2 INC INC VIEWS FRONTAL[place] [address] [facility] CISNEROS FREE 7 [facility] THYROXINE INC INC GENERAL 86635 [facility] 7 [facility] PANEL INC INC Encounters Encounter Start End Date Code Location Performer Type Date EMERGENCY 68945 [facility] 7 7 [facility] DEPARTMEN INC T VISIT LOW/MODER SEVERITY HOSPITAL [facility] Ignacio 7 [facility] OUTPATIEN INC T EMERGENCY 14184 [facility] THOMAS 7 7 PHYSICIAN DEPARTMEN S, [facility] T VISIT HIGH/URGE NT SEVERITY OFFICE 23022 [facility] 7 7 PHYSICIAN T VISIT S GROUP 25 MINUTES HOSPITAL [facility] - 7 7 [facility] OUTPATIEN [facility] T OFFICE 38724 [facility] 7 7 PHYSICIAN T VISIT S GROUP 25 MINUTES
--- OUTSIDE RECORDS SUMMARY | 2016-10-22 18:11 | External Medical Summary Rpt ---
Author Author [employer], [employer] Organization [employer] Address Unknown Phone Unavailable Results Comprehensive metabolic 2000 panel in Serum or Plasma Observa Value Referen Units Interpr Notes Date tion ce etation Range Albumin/G 1.1 - 1.8 No Normal No Oct 20 lobulin informati informati 2016 [Mass on in on in 11:15 AM ratio] in source source Serum or data data Plasma Albumin 3.4 - 5.0 gm/dL Normal No Oct 20 [Mass/vol informati 2016 ume] in on in 11:15 AM Serum or source Plasma data Alkaline 46 - 116 U/L Normal No Oct 20 phosphata informati 2016 se on in 11:15 AM [Enzymati source c data activity/ volume] in Serum or Plasma Bilirubin 0.2 - 1.0 mg/dL Normal No Oct 20 .total informati 2016 [Mass/vol on in 11:15 AM ume] in source Serum or data Plasma Urea 7 - 18 mg/dL Low No Oct 20 nitrogen informati 2016 [Mass/vol on in 11:15 AM ume] in source Serum or data Plasma Calcium 8.5 - mg/dL Normal No Oct 20 [Mass/vol 10.1 informati 2016 ume] in on in 11:15 AM Serum or source Plasma data Chloride 98 - 107 mmoL/L Normal No Oct 20 [Moles/vo informati 2016 lume] in on in 11:15 AM Serum or source Plasma data Carbon 21.0 - mmoL/L Normal No Oct 20 dioxide, 32.0 informati 2017 total on in 11:15 AM [Moles/vo source lume] in data Serum or Plasma Creatinin 0.55 - mg/dL Low No Oct 20 e 1.02 informati 2016 [Mass/vol on in 11:15 AM ume] in source Serum or data Plasma Estimated 59- ML/MIN No REFERENCE Oct 20 informati RANGE: 2017 glomerula on in >60 11:15 AM r source ML/MIN/1. filtratio data 73 SQUARE n rate METERSIf (GF this patient is -A merican, then multiply theresult by 1.210. Globulin 1.3 - 3.2 gm/dL High No Oct 20 [Mass/vol informati 2016 ume] in on in 11:15 AM Serum source data Glucose 74 - 106 mg/dL Low No Oct 20 [Mass/vol informati 2016 ume] in on in 11:15 AM Serum or source Plasma data Potassium 3.5 - 5.1 mmoL/L Normal No Oct 20 inform2016 [Moles/vo on in 11:15 AM lume] in source Serum or data Plasma Sodium 136 - 145 mmoL/L Normal No Oct 20 [Moles/vo informati 2016 lume] in on in 11:15 AM Serum or source Plasma data Aspartate 15 - 37 U/L Normal No Oct 202016 aminotran on in 11:15 AM sferase source [Enzymati data c activity/ volume] in Serum or Plasma Alanine 12 - 78 U/L Normal No Oct 20 aminotran 2016 sferase on in 11:15 AM [Enzymati source c data activity/ volume] in Serum or Plasma Protein 6.4 - 8.2 gm/dL Normal No Oct 20 [Mass/vol informati 2016 ume] in on in 11:15 AM Serum or source Plasma data Choriogonadotropin [Units/volume] in Serum or Plasma Observa Value Referen Units Interpr Notes Date tion ce etation Range Choriogon NEG No No No Oct 20 adotropin informati informati 2016 on in on in on in 11:15 AM [Units/vo source source source lume] in data data data Serum or Plasma CBC W Auto Differential panel in Blood Observa Value Referen Units Interpr Notes Date tion ce etation Range Basophils 0 - 0.2 K/MM3 Normal No Oct 20 inform2016 [#/volume on in 11:15 AM ] in source Blood by data Automated count Basophils 0.1 - 2.0 % Normal No Oct 20 /100 inform2016 leukocyte on in 11:15 AM s in source Blood by data Automated count Eosinophi 0.0 - 0.4 K/mm3 Normal No Oct 20 ls 2016 [#/volume on in 11:15 AM ] in source Blood by data Automated count Eosinophi 0.1 - % Normal No Oct 20 ls/100 12.0 2016 leukocyte on in 11:15 AM s in source Blood by data Automated count Granulocy 1.8 - 7.8 K/mm3 Normal No Oct 20 isaac inform2016 [#/volume on in 11:15 AM ] in source Blood by data Automated count Granulocy 37.0 - % Normal No Oct 20 isaac/100 80.0 inform2016 leukocyte on in 11:15 AM s in source Blood by data Automated count Hematocri 37.0 - % High No Oct 20 t [Volume 47.0 informati 2016 on in 11:15 AM Fraction] source of Blood data Hemoglobi 12.2 - g/dL High No Oct 20 n 16.2 informati 2016 [Mass/vol on in 11:15 AM ume] in source Blood data Lymphocyt 0.7 - 4.5 K/mm3 Normal No Oct 20 es inform2016 [#/volume on in 11:15 AM ] in source Unspecifi data ed specimen by Automated count Lymphocyt 10 - 50.0 % Normal No Oct 20 es inform2016 [#/volume on in 11:15 AM ] in source Unspecifi data ed specimen by Automated count Erythrocy 27 - 31.2 pg Normal No Oct 20 te mean 2016 corpuscul on in 11:15 AM ar source hemoglobi data n [Entitic mass] Erythrocy 31.8 - g/dl Normal No Oct 20 te mean 35.4 inform2016 corpuscul on in 11:15 AM ar source hemoglobi data n concentra tion [Mass/vol ume] by Automated count Erythrocy 82.2 - fl Normal No Oct 20 te mean 97.8 inform2016 corpuscul on in 11:15 AM ar volume source [Entitic data volume] by Automated count Monocytes 0.1 - 1.0 K/mm3 Normal No Oct 20 inform2016 [#/volume on in 11:15 AM ] in source Blood by data Automated count Monocytes 1.7 - 9.3 % Normal No Oct 20 /100 informati 2017 leukocyte on in 11:15 AM s in source Blood by data Automated count Platelet 7.4 - fl Normal No Oct 20 mean 10.4 inform2016 volume on in 11:15 AM [Entitic source volume] data in Blood by Automated count Platelets 142 - 424 K/mm3 Normal No Oct 20 inform2016 [#/volume on in 11:15 AM ] in source Blood data Erythrocy 4.2 - 5.4 M/mm3 Normal No Oct 20 isaac informati 2016 [#/volume on in 11:15 AM ] in source Amniotic data fluid Erythrocy 11.5 - % Normal No Oct 20 te 17.5 informati 2016 distribut on in 11:15 AM ion width source [Entitic data volume] by Automated count Leukocyte 4.8 - K/MM3 Normal No Oct 20 s 10.8 informati 2016 [#/volume on in 11:15 AM ] in source Blood data Choriogonadotropin.beta subunit [Units] in 24 hour Urine Observa Value Referen Units Interpr Notes Date tion ce etation Range Choriogon NEG No No No Sep 11 adotropin informati informati informati 2017 9:30 .beta on in on in on in AM subunit source source source [Units] data data data in 24 hour Urine Urinalysis dipstick W Reflex Microscopic panel in Urine Observa Value Referen Units Interpr Notes Date tion ce etation Range Appeara CLOUDY CLEAR No No No Sep 11 nce of informa informa informa 2017 Urine tion in tion in tion in 9:30 AM source source source data data data Bacteri 3+ O No No No Sep 11 a informa informa informa 2017 [Presen tion in tion in tion in 9:30 AM ce] in source source source Urine data data data sedimen t by Light microsc opy Bilirub NEGATIV NEG No No No Sep 11 in E informa informa informa 2017 [Presen tion in tion in tion in 9:30 AM ce] in source source source Urine data data data by Test strip Erythro TRACE-I NEG No No No Sep 11 cytes NTACT informa informa informa 2017 [Presen tion in tion in tion in 9:30 AM ce] in source source source Urine data data data Color YELLOW YELLOW No No No Sep 11 of informa informa informa 2017 Urine tion in tion in tion in 9:30 AM source source source data data data Glucose NEG No No No Sep 11 [Mass/vol informati informati informati 2017 9:30 ume] in on in on in on in AM Urine by source source source Test data data data strip Ketones NEGATIV NEG mg/dL No No Sep 11 E informa informa 2017 [Presen tion in tion in 9:30 AM ce] in source source Urine data data by Automat ed test strip Mucus NEGATIV NEG No No No Sep 11 [Presen E informa informa informa 2016 ce] in tion in tion in tion in 9:30 AM Urine source source source sedimen data data data t by Light microsc opy Mucus 1+ OCC No No No Sep 11 [Presen informa informa informa 2016 ce] in tion in tion in tion in 9:30 AM Urine source source source sedimen data data data t by Light microsc opy Nitrite NEGATIV NEG No No No Sep 11 E informa informa informa 2016 [Presen tion in tion in tion in 9:30 AM ce] in source source source Urine data data data by Test strip pH of 5.0 - 8.5 No Normal No Sep 11 Urine informati informati 2017 9:30 on in on in AM source source data data Protein NEG mg/dL No No Sep 11 [Mass/vol informati informati 2016 9:30 ume] in on in on in AM Urine by source source Automated data data test strip Erythro OCC 0 rbc/hpf No No Sep 11 cytes informa informa 2016 [Presen tion in tion in 9:30 AM ce] in source source Urine data data sedimen t by Light microsc opy Specific 1.005 - No Normal No Sep 11 gravity 1.030 informati informati 2017 9:30 of Urine on in on in AM source source data data Epithel 5-10 0 - 5 #/hpf No No Sep 11 ial informa informa 2017 cells.s tion in tion in 9:30 AM quamous source source data data [Presen ce] in Urine sedimen t by Microsc opy high power field Urobili 1.0 NEG E.U./dL No No Sep 11 nogen informa informa 2016 [Presen tion in tion in 9:30 AM ce] in source source Urine data data by Test strip Leukocyte O wbc/hpf No No Sep 11 s informati informati 2017 9:30 [#/volume on in on in AM ] in source source Urine data data Urinalysis dipstick W Reflex Microscopic panel in Urine Observa Value Referen Units Interpr Notes Date tion ce etation Range Appeara CLOUDY CLEAR No No No Sep 11 nce of informa informa informa 2017 Urine tion in tion in tion in 9:30 AM source source source data data data Bilirub NEGATIV NEG No No No Sep 11 in E informa informa informa 2017 [Presen tion in tion in tion in 9:30 AM ce] in source source source Urine data data data by Test strip Erythro TRACE-I NEG No No No Sep 11 cytes NTACT informa informa informa 2016 [Presen tion in tion in tion in 9:30 AM ce] in source source source Urine data data data Color YELLOW YELLOW No No No Sep 11 of informa informa informa 2017 Urine tion in tion in tion in 9:30 AM source source source data data data Glucose NEG No No No Sep 11 [Mass/vol informati informati informati 2017 9:30 ume] in on in on in on in AM Urine by source source source Test data data data strip Ketones NEGATIV NEG mg/dL No No Sep 11 E informa informa 2016 [Presen tion in tion in 9:30 AM ce] in source source Urine data data by Automat ed test strip Mucus NEGATIV NEG No No No Sep 11 [Presen E informa informa informa 2016 ce] in tion in tion in tion in 9:30 AM Urine source source source sedimen data data data t by Light microsc opy Nitrite NEGATIV NEG No No No Sep 11 E informa informa informa 2016 [Presen tion in tion in tion in 9:30 AM ce] in source source source Urine data data data by Test strip pH of 5.0 - 8.5 No Normal No Sep 11 Urine informati informati 2017 9:30 on in on in AM source source data data Protein NEG mg/dL No No Sep 11 [Mass/vol informati informati 2017 9:30 ume] in on in on in AM Urine by source source Automated data data test strip Specific 1.005 - No Normal No Sep 11 gravity 1.030 informati informati 2017 9:30 of Urine on in on in AM source source data data Urobili 1.0 NEG E.U./dL No No Sep 11 nogen informa informa 2016 [Presen tion in tion in 9:30 AM ce] in source source Urine data data by Test strip Comprehensive metabolic 2000 panel in Serum or Plasma Observa Value Referen Units Interpr Notes Date tion ce etation Range Albumin/G 1.1 - 1.8 No Normal No Aug 31 lobulin informati informati 2016 4:21 [Mass on in on in PM ratio] in source source Serum or data data Plasma Albumin 3.4 - 5.0 gm/dL Normal No Aug 31 [Mass/vol informati 2016 4:21 ume] in on in PM Serum or source Plasma data Alkaline 46 - 116 U/L Normal No Aug 31 phosphata informati 2017 4:21 se on in PM [Enzymati source c data activity/ volume] in Serum or Plasma Bilirubin 0.2 - 1.0 mg/dL Normal No Aug 31 .total informati 2016 4:21 [Mass/vol on in PM ume] in source Serum or data Plasma Urea 7 - 18 mg/dL Normal No Aug 31 nitrogen informati 2016 4:21 [Mass/vol on in PM ume] in source Serum or data Plasma Calcium 8.5 - mg/dL Normal No Aug 31 [Mass/vol 10.1 informati 2016 4:21 ume] in on in PM Serum or source Plasma data Chloride 98 - 107 mmoL/L Normal No Aug 31 [Moles/vo informati 2016 4:21 lume] in on in PM Serum or source Plasma data Carbon 21.0 - mmoL/L Normal No Aug 31 dioxide, 32.0 informati 2017 4:21 total on in PM [Moles/vo source lume] in data Serum or Plasma Creatinin 0.55 - mg/dL Normal No Aug 31 e 1.02 informati 2017 4:21 [Mass/vol on in PM ume] in source Serum or data Plasma Estimated 59- ML/MIN No REFERENCE Aug 31 informati RANGE: 2017 4:21 glomerula on in >60 PM r source ML/MIN/1. filtratio data 73 SQUARE n rate METERSIf (GF this patient is -A merican, then multiply theresult by 1.210. Globulin 1.3 - 3.2 gm/dL High No Aug 31 [Mass/vol informati 2016 4:21 ume] in on in PM Serum source data Glucose 74 - 106 mg/dL Low No Aug 31 [Mass/vol informati 2016 4:21 ume] in on in PM Serum or source Plasma data Potassium 3.5 - 5.1 mmoL/L Normal No Aug 31 inform2016 4:21 [Moles/vo on in PM lume] in source Serum or data Plasma Sodium 136 - 145 mmoL/L Normal No Aug 31 [Moles/vo 2016 4:21 lume] in on in PM Serum or source Plasma data Aspartate 15 - 37 U/L Low No Aug 31 inform2016 4:21 aminotran on in PM sferase source [Enzymati data c activity/ volume] in Serum or Plasma Alanine 12 - 78 U/L Normal No Aug 31 aminotran informati 2016 4:21 sferase on in PM [Enzymati source c data activity/ volume] in Serum or Plasma Protein 6.4 - 8.2 gm/dL Normal No Aug 31 [Mass/vol inform2016 4:21 ume] in on in PM Serum or source Plasma data Thyroxine (T4) free [Mass/volume] in Serum or Plasma Observa Value Referen Units Interpr Notes Date tion ce etation Range Thyroxine 0.76 - ng/dL Normal No Aug 31 (T4) 1.46 2016 4:21 free on in PM [Mass/vol source ume] in data Serum or Plasma Thyrotropin [Units/volume] in Serum or Plasma Observa Value Referen Units Interpr Notes ti ce etation Range Thyrotrop 0.358 - uIU/ml High No Aug 31 in 3.740 2016 4:21 [Units/vo on in PM lume] in source Serum or data Plasma CBC W Auto Differential panel in Blood Observa Value Referen Units Interpr Notes Date tion ce etation Range Basophils 0 - 0.2 K/MM3 Normal No Aug 31 inform2016 4:21 [#/volume on in PM ] in source Blood by data Automated count Basophils 0.1 - 2.0 % Normal No Aug 31 /100 informati 2016 4:21 leukocyte on in PM s in source Blood by data Automated count Eosinophi 0.0 - 0.4 K/mm3 Normal No Aug 31 ls informati 2016 4:21 [#/volume on in PM ] in source Blood by data Automated count Eosinophi 0.1 - % Normal No Aug 31 ls/100 12.0 informati 2016 4:21 leukocyte on in PM s in source Blood by data Automated count Granulocy 1.8 - 7.8 K/mm3 High No Aug 31 isaac informati 2016 4:21 [#/volume on in PM ] in source Blood by data Automated count Granulocy 37.0 - % Normal No Aug 31 isaac/100 80.0 informati 2017 4:21 leukocyte on in PM s in source Blood by data Automated count Hematocri 37.0 - % High No Aug 31 t [Volume 47.0 informati 2016 4:21 on in PM Fraction] source of Blood data Hemoglobi 12.2 - g/dL Normal No Aug 31 n 16.2 informati 2017 4:21 [Mass/vol on in PM ume] in source Blood data Lymphocyt 0.7 - 4.5 K/mm3 Normal No Aug 31 es informati 2016 4:21 [#/volume on in PM ] in source Unspecifi data ed specimen by Automated count Lymphocyt 10 - 50.0 % Normal No Aug 31 es informati 2016 4:21 [#/volume on in PM ] in source Unspecifi data ed specimen by Automated count Erythrocy 27 - 31.2 pg Normal No Aug 31 te mean informati 2016 4:21 corpuscul on in PM ar source hemoglobi data n [Entitic mass] Erythrocy 31.8 - g/dl Normal No Aug 31 te mean 35.4 informati 2016 4:21 corpuscul on in PM ar source hemoglobi data n concentra tion [Mass/vol ume] by Automated count Erythrocy 82.2 - fl Normal No Aug 31 te mean 97.8 informati 2016 4:21 corpuscul on in PM ar volume source [Entitic data volume] by Automated count Monocytes 0.1 - 1.0 K/mm3 Normal No Aug 31 informati 2016 4:21 [#/volume on in PM ] in source Blood by data Automated count Monocytes 1.7 - 9.3 % Normal No Aug 31 /100 informati 2017 4:21 leukocyte on in PM s in source Blood by data Automated count Platelet 7.4 - fl Normal No Aug 31 mean 10.4 informati 2016 4:21 volume on in PM [Entitic source volume] data in Blood by Automated count Platelets 142 - 424 K/mm3 No No Aug 31 informati informati 2017 4:21 [#/volume on in on in PM ] in source source Blood data data Erythrocy 4.2 - 5.4 M/mm3 Normal No Aug 31 isaac informati 2016 4:21 [#/volume on in PM ] in source Amniotic data fluid Erythrocy 11.5 - % Normal No Aug 31 te 17.5 informati 2016 4:21 distribut on in PM ion width source [Entitic data volume] by Automated count Leukocyte 4.8 - K/MM3 High No Aug 31 s 10.8 informati 2016 4:21 [#/volume on in PM ] in source Blood data Hemoglobin A1c in Blood Observa Value Referen Units Interpr Notes Date tion ce etation Range Hemoglo 5.3 0.0 - % Normal < 6% Aug 31 bin A1c 7.0 NON-LALITHA 2017 in BETIC 4:21 PM Blood LEVEL< 7% CONTROL LED DIABETI C LEVEL> 8% POORLY CONTROL LED DIABETI C LEVEL Choriogonadotropin [Units/volume] in Serum or Plasma Observa Value Referen Units Interpr Notes Date tion ce etation Range Choriogon NEG No No No Aug 28 adotropin informati informati informati 2016 2:45 on in on in on in PM [Units/vo source source source lume] in data data data Serum or Plasma Amylase [Enzymatic activity/volume] in Serum or Plasma Observa Value Referen Units Interpr Notes Date tion ce etation Range Amylase 25 - 115 U/L Normal No Aug 28 [Enzymati informati 2016 2:45 c on in PM activity/ source volume] data in Serum or Plasma Comprehensive metabolic 2000 panel in Serum or Plasma Observa Value Referen Units Interpr Notes Date tion ce etation Range Albumin/G 1.1 - 1.8 No Normal No Aug 28 lobulin informati informati 2016 2:45 [Mass on in on in PM ratio] in source source Serum or data data Plasma Albumin 3.4 - 5.0 gm/dL Normal No Aug 28 [Mass/vol informati 2016 2:45 ume] in on in PM Serum or source Plasma data Alkaline 46 - 116 U/L Normal No Aug 28 phosphata informati 2016 2:45 se on in PM [Enzymati source c data activity/ volume] in Serum or Plasma Bilirubin 0.2 - 1.0 mg/dL Normal No Aug 28 .total informati 2017 2:45 [Mass/vol on in PM ume] in source Serum or data Plasma Urea 7 - 18 mg/dL Normal No Micah 16 nitrogen informati 2016 2:45 [Mass/vol on in PM ume] in source Serum or data Plasma Calcium 8.5 - mg/dL Normal No Aug 28 [Mass/vol 10.1 informati 2016 2:45 ume] in on in PM Serum or source Plasma data Chloride 98 - 107 mmoL/L Normal No Aug 16 [Moles/vo informati 2016 2:45 lume] in on in PM Serum or source Plasma data Carbon 21.0 - mmoL/L Normal No Aug 28 dioxide, 32.0 informati 2016 2:45 total on in PM [Moles/vo source lume] in data Serum or Plasma Creatinin 0.55 - mg/dL Low No Aug 28 e 1.02 informati 2016 2:45 [Mass/vol on in PM ume] in source Serum or data Plasma Creatinin 50 - 200 ML/MIN Normal No Aug 28 e renal informati 2016 2:45 clearance on in PM source predicted data by Cockcroft -Gault formula Estimated 59- ML/MIN No REFERENCE Aug 28 informati RANGE: 2017 2:45 glomerula on in >60 PM r source ML/MIN/1. filtratio data 73 SQUARE n rate METERSIf (GF this patient is -A merican, then multiply theresult by 1.210. Globulin 1.3 - 3.2 gm/dL High No Aug 28 [Mass/vol informati 2016 2:45 ume] in on in PM Serum source data Glucose 74 - 106 mg/dL Normal No Aug 16 [Mass/vol informati 2016 2:45 ume] in on in PM Serum or source Plasma data Potassium 3.5 - 5.1 mmoL/L Normal No Aug 28 informati 2016 2:45 [Moles/vo on in PM lume] in source Serum or data Plasma Sodium 136 - 145 mmoL/L Normal No Aug 16 [Moles/vo informati 2016 2:45 lume] in on in PM Serum or source Plasma data Aspartate 15 - 37 U/L Low No Aug 28 informati 2016 2:45 aminotran on in PM sferase source [Enzymati data c activity/ volume] in Serum or Plasma Alanine 12 - 78 U/L Normal No Aug 28 aminotran informati 2016 2:45 sferase on in PM [Enzymati source c data activity/ volume] in Serum or Plasma Protein 6.4 - 8.2 gm/dL Normal No Micah 16 [Mass/vol informati 2016 2:45 ume] in on in PM Serum or source Plasma data Lipase [Enzymatic activity/volume] in Serum or Plasma Observa Value Referen Units Interpr Notes Date tion ce etation Range Lipase 73 - 393 U/L Low No Aug 16 [Enzymati informati 2016 2:45 c on in PM activity/ source volume] data in Serum or Plasma CBC W Auto Differential panel in Blood Observa Value Referen Units Interpr Notes Date tion ce etation Range Basophils 0 - 0.2 K/MM3 Normal No Aug 16 informati 2016 2:45 [#/volume on in PM ] in source Blood by data Automated count Basophils 0.1 - 2.0 % Normal No Aug 16 /100 informati 2017 2:45 leukocyte on in PM s in source Blood by data Automated count Eosinophi 0.0 - 0.4 K/mm3 Normal No Aug 16 ls informati 2016 2:45 [#/volume on in PM ] in source Blood by data Automated count Eosinophi 0.1 - % Normal No Aug 28 ls/100 12.0 informati 2016 2:45 leukocyte on in PM s in source Blood by data Automated count Granulocy 1.8 - 7.8 K/mm3 Normal No Aug 16 isaac informati 2016 2:45 [#/volume on in PM ] in source Blood by data Automated count Granulocy 37.0 - % Normal No Aug 16 isaac/100 80.0 informati 2016 2:45 leukocyte on in PM s in source Blood by data Automated count Hematocri 37.0 - % Normal No Aug 28 t [Volume 47.0 informati 2016 2:45 on in PM Fraction] source of Blood data Hemoglobi 12.2 - g/dL Normal No Aug 28 n 16.2 informati 2016 2:45 [Mass/vol on in PM ume] in source Blood data Lymphocyt 0.7 - 4.5 K/mm3 Normal No Aug 28 es informati 2016 2:45 [#/volume on in PM ] in source Unspecifi data ed specimen by Automated count Lymphocyt 10 - 50.0 % Normal No Aug 16 es informati 2016 2:45 [#/volume on in PM ] in source Unspecifi data ed specimen by Automated count Erythrocy 27 - 31.2 pg Normal No Aug 28 te mean informati 2016 2:45 corpuscul on in PM ar source hemoglobi data n [Entitic mass] Erythrocy 31.8 - g/dl Normal No Aug 16 te mean 35.4 informati 2016 2:45 corpuscul on in PM ar source hemoglobi data n concentra tion [Mass/vol ume] by Automated count Erythrocy 82.2 - fl Normal No Aug 16 te mean 97.8 informati 2016 2:45 corpuscul on in PM ar volume source [Entitic data volume] by Automated count Monocytes 0.1 - 1.0 K/mm3 Normal No Aug 16 informati 2016 2:45 [#/volume on in PM ] in source Blood by data Automated count Monocytes 1.7 - 9.3 % Normal No Aug 16 /100 informati 2016 2:45 leukocyte on in PM s in source Blood by data Automated count Platelet 7.4 - fl Normal No Aug 16 mean 10.4 informati 2016 2:45 volume on in PM [Entitic source volume] data in Blood by Automated count Platelets 142 - 424 K/mm3 Normal No Aug 16 inform2016 2:45 [#/volume on in PM ] in source Blood data Erythrocy 4.2 - 5.4 M/mm3 Normal No Aug 16 isaac informati 2016 2:45 [#/volume on in PM ] in source Amniotic data fluid Erythrocy 11.5 - % Normal No Aug 16 te 17.5 informati 2016 2:45 distribut on in PM ion width source [Entitic data volume] by Automated count Leukocyte 4.8 - K/MM3 Normal No Aug 16 s 10.8 informati 2016 2:45 [#/volume on in PM ] in source Blood data Urinalysis macro (dipstick) panel in Urine Observa Value Referen Units Interpr Notes Date tion ce etation Range Appeara Sl CLEAR No No No Aug 28 nce of Cloudy informa informa inform2016 Urine tion in tion in tion in 2:21 PM source source source data data data Bilirub 1+ NEG No Abnorma BILIRUB Aug 28 in informa l IN 2017 [Presen tion in CONFIRM 2:21 PM ce] in source ED WITH Urine data by Test ICTOTES strip T Erythro TRACE NEG No Abnorma No Aug 16 cytes informa l inform2016 [Presen tion in tion in 2:21 PM ce] in source source Urine data data Color OTHER YELLOW No No No Aug 28 of informa informa informa 2017 Urine tion in tion in tion in 2:21 PM source source source data data data Glucose NEG No No No Aug 28 [Mass/vol informati informati informati 2016 2:21 ume] in on in on in on in PM Urine by source source source Test data data data strip Ketones NEGATIV NEG mg/dL No No Aug 28 E informa informa 2016 [Presen tion in tion in 2:21 PM ce] in source source Urine data data by Automat ed test strip pH of 5.0 - 8.5 No Normal No Aug 28 Urine informati informati 2017 2:21 on in on in PM source source data data Protein NEG mg/dL No No Aug 28 [Mass/vol informati informati 2017 2:21 ume] in on in on in PM Urine by source source Automated data data test strip Specific 1.005 - No Normal No Aug 28 gravity 1.030 informati informati 2016 2:21 of Urine on in on in PM source source data data Leukocy TRACE NEG No Abnorma No Aug 28 te informa l informa 2017 esteras tion in tion in 2:21 PM e source source [Presen data data ce] in Urine by Automat ed test strip Nitrite NEGATIV NEG No No No Aug 28 E informa informa informa 2016 [Presen tion in tion in tion in 2:21 PM ce] in source source source Urine data data data by Test strip Urobili 2.0 NEG E.U./dL No No Aug 28 nogen informa informa 2016 [Presen tion in tion in 2:21 PM ce] in source source Urine data data by Test strip Urine test by rapid immunoassa Observa Value Referen Units Interpr Notes Date tion ce etation Range Urine NEGATIV NEG No No INTERNA Aug 28 pregnan E informa informa L 2017 cy test tion in tion in CONTROL 2:17 PM by source source OK? : rapid data data YES immunoa ssa 7 1430 Amber z,Lanette ty Reagin Ab [Presence] in Unspecified specimen by VDRL Observa Value Referen Units Interpr Notes Date tion ce etation Range COLLECT JH No No No No Jun 9 OR informa informa informa informa 2012 tion in tion in tion in tion in 10:50 source source source source AM data data data data ETHNICI C No No No No Jun 9 TY informa informa informa informa 2012 tion in tion in tion in tion in 10:50 source source source source AM data data data data PURPOSE ROUTINE No No No No Jun 9 OF informa informa informa informa 2012 EXAM tion in tion in tion in tion in 10:50 source source source source AM data data data data SPECIME BLOOD No No No No Jun 9 N informa informa informa informa 2012 SOURCE tion in tion in tion in tion in 10:50 source source source source AM data data data data CHART [id number] No No No No Jun 21 NUMBER informa informa informa informa 2012 tion in tion in tion in tion in 10:50 source source source source AM data data data data Reagin NON-JETT No No No METHOD Jun 9 [address]IVE informa informa informa OF 2012 [Presen tion in tion in tion in ANALYSI 10:50 ce] in source source source S: AM Unspeci data data data VDRLNOR fied MAL specime RANGE: n by NON VDRL REACTIV E\.br\T his report contain s patient informa tion that must be protect ed in accorda nce with the Health Insuran ce Portabi lity and Account ability Act. Reagin Ab [Presence] in Unspecified specimen by VDRL Observa Value Referen Units Interpr Notes Date tion ce etation Range COLLECT JH No No No No Jun 21 OR informa informa informa informa 2012 tion in tion in tion in tion in 10:50 source source source source AM data data data data ETHNICI C No No No No Jun 9 TY informa informa informa informa 2012 tion in tion in tion in tion in 10:50 source source source source AM data data data data PURPOSE ROUTINE No No No No Jun 9 OF informa informa informa informa 2012 EXAM tion in tion in tion in tion in 10:50 source source source source AM data data data data SPECIME BLOOD No No No No Jun 9 N informa informa informa informa 2012 SOURCE tion in tion in tion in tion in 10:50 source source source source AM data data data data CHART [id number] No No No No Jun 9 NUMBER informa informa informa informa 2012 tion in tion in tion in tion in 10:50 source source source source AM data data data data Reagin Pending No No No \.br\Jun 21 Ab informa informa informa is 2011 [Presen tion in tion in tion in report 10:50 ce] in source source source contain AM Unspeci data data data s fied patient specime n by informa VDRL tion that must be protect ed in accorda nce with the Health Insuran ce Portabi lity and Account ability Act.
--- OUTSIDE RECORDS SUMMARY | 2016-10-22 18:11 | External Medical Summary Rpt ---
[...] source AM data data data data CHART [id number] No No No No Jun 21 NUMBER [...] source AM data data data data CHART [id number] No No No No Jun 9 NUMBER [...]
--- OUTSIDE RECORDS SUMMARY | 2016-10-22 19:09 | External Medical Summary Rpt ---
Author Author , BRAYDEN OWEN Address Unknown Phone [email or web address] Care Team Providers Care Health Information Coder Name Role Phone SANTI HANCOCK Unavailable Unavailable [facility] Unavailable Unavailable INC, [facility], Unavailable Unavailable [facility] MARTHA THOMAS [facility]available Unavailable [facility] Unavailable Unavailable [facility], [facility], Unavailable Unavailable PLL[facility], [facility], [facility] Purpose Continuity of Care Document - 06-22-2011 through 2016 Problems Code Diagnosis DOS Provider Status R1110 VOMITING 09-11-2016 [facility] R1111 VOMITING 09-11-2016 [facility] NAUSEA INC J0100 ACUTE 09-10-2016 [facility] SINUSITIS GROUP UNSPECIFIED R1011 RIGHT UPPER 09-10-2016 [facility] PAIN GROUP R05 COUGH 08-31-2016 [facility] R112 NAUSEA WITH 08-31-2016 [facility] VOMITING PHYSICIANS UNSPECIFIED GROUP R631 POLYDIPSIA 08-31-2016 [facility] Medications Na ND Rx [...] .0 00 ME ti NS 87 1- 06 TO ve ET 73 20 20 [...] complet of 017 ed Urine 09:30 Ketones 06-30-2 NEGATIV NEG complet 017 E ed [Presen 09:30 ce] in Urine by Automat ed test strip Mucus 2 NEGATIV NEG complet [Presen 017 E ed ce] in 09:30 Urine sedimen t by Light microsc opy Nitrite NEGATIV NEG complet 017 E ed [Presen 09:30 ce] in Urine by Test strip Urobili 2 1.0 NEG complet nogen 017 ed [Presen [...] Urine by Automat ed test strip Leukocy TRACE NEG Abnorma complet te 017 l [...] complet N 012 ed SOURCE 10:50 CHART [id number] complet NUMBER 012 ed 10:50 Reagin Pending complet Ab 012 ed [Presen 10:50 ce] in Unspeci fied specime n by VDRL Procedures Procedure DOS Code Location Performer Comment URINE 54346 [facility] TEST INC INC VISUAL COLOR CMPRSN METHS CULTURE 25585 [facility] C[facility]NER[facility] BACTERIAL 7 [facility] INC INC QUANTTATI VE COLONY COUNT URINE URNLS DIP 56908 [facility] CISNEROS 7 [facility] STICK/TAB INC INC LET REAGENT AUTO MICROSCOP Y HEMOGLOBI 72634 [facility] CISNEROS N 7 [facility] GLYCOSYLA INC INC OANH A1C RADIOLOGI 16384 [facility] CISNEROS C EXAM 7 [facility] CHEST 2 INC INC VIEWS FRONTAL&[place] [address] AMELIA CISNEROS FREE 7 [facility] THYROXINE INC INC GENERAL 21501 [facility] CISNEROS [facility] 7 [facility] PANEL INC INC Encounters Encounter Start End Date Code Location Performer Type Date EMERGENCY 42745 [facility] 7 7 [facility] DEPARTMEN INC T VISIT LOW/MODER SEVERITY EMERGENCY 45578 [facility] THOMAS 7 7 PHYSICIAN DEPARTMEN S, PLLC T VISIT HIGH/URGE NT SEVERITY HOSPITAL [facility] - 7 7 [facility] OUTPATIEN [facility] T OFFICE 61028 [facility] FRYMRADHA OUTPATIEN 7 7 PHYSICIAN T [facility]ISIT S GROUP 25 MINUTES [facility] - 7 7 [facility] OFF[facility] 87370 [facility] YMAN OUTPATIEN 7 7 PHYSICIAN T VISIT S GROUP 25 MINUTES
--- OUTSIDE RECORDS SUMMARY | 2016-10-22 19:09 | External Medical Summary Rpt ---
Author Author , BRAYDEN OWEN Address Unknown Phone [email or web address] Care Team Providers Care General Manager Food Name Role Phone SANTI HANCOCK Unavailable Unavailable [facility] Unavailable Unavailable INC, [facility], Unavailable Unavailable [facility] MARTHA THOMAS Unavailable Unavailable [facility] Unavailable Unavailable [facility], [facility], Unavailable Unavailable PLLC, [facility], [facility] Purpose Continuity of Care Document - 06-22-2011 through 2016 Problems Code Diagnosis DOS Provider Status R1110 VOMITING 09-11-2016 [facility] R1111 VOMITING 09-11-2016 [facility] NA[facility]A INC J0100 ACUTE 09-10-2016 [facility] SINUSITIS GROUP UNSPECIFIED R1011 RIGHT UPPER 09-10-2016 [facility] PAIN GROUP R05 COUGH 08-31-2016 [facility] R112 NAUSEA WITH 08-31-2016 [facility] VOMITING PHYSICIANS UNSPECIFIED GROUP R631 POLYDIPSIA 08-31-2016 [facility] Medications Na ND Rx Da [...] BL CY ET NT HI AN A SC 68 06 07 12 3 00 WA [...] 10 3- 7- 00 06 TO ve SC 00 20 20 08 WN ED 50 [...] complet N 012 ed SOURCE 10:50 CHART [id number] complet NUMBER 012 ed 10:50 Reagin Pending complet Ab 012 ed [Presen 10:50 ce] in Unspeci fied specime n by VDRL Procedures Procedure DOS Code Location Performer Comment URINE 89467 [facility] CISNEROS 7 [facility] TEST INC INC VISUAL COLOR CMPRSN METHS CULTURE 86195 AM[facility]IA CISNEROS BACTERIAL 7 [facility] INC INC QUANTTATI VE COLONY COUNT URINE URNLS DIP 01306 [facility] CISNEROS 7 [facility] STICK/TAB INC INC LET REAGENT AUTO MICROSCOP Y HEMOGLOBI 91058 [facility] CISNEROS N 7 [facility] GLYCOSYLA INC INC OANH A1C RADIOLOGI 27310 [facility] CISNEROS C EXAM 7 [facility] CHEST 2 INC INC VIEWS FRONTAL&[place] [address] AMEL[facility] CISNEROS FREE 7 [facility] THYROXINE INC INC GENERAL 06815 [facility] CISNEROS [facility] 7 [facility] PANEL INC INC Encounters Encounter Start End Date Code Location Performer Type Date EMERGENCY 00747 [facility] 7 7 [facility] DEPARTMEN INC T VISIT LOW/MODER SEVERITY EMERGENCY 70628 [facility] THOMAS 7 7 PHYSICIAN DEPARTMEN S, PLLC T VISIT HIGH/URGE NT SEVERITY HOSPITAL [facility] - 7 7 [facility] OUTPATIEN [facility] T OFFICE 83761 [facility] FRY[facility] OUTPATIEN 7 7 PHYSICIAN T [facility]ISIT S GROUP 25 MIN[facility] OFF[facility] 85751 [facility] YMAN OUTPATIEN 7 7 PHYSICIAN T VISIT S GROUP 25 MINUTES
--- OUTSIDE RECORDS SUMMARY | 2016-10-22 19:10 | External Medical Summary Rpt ---
Demographics Preferred Language Urdu Marital Status Unknown Moravian Affiliation Unknown Race Unknown Ethnic Group Unknown Author Author GABY Address Unknown Phone Immunization No patient found.
--- OUTSIDE RECORDS SUMMARY | 2016-10-22 19:10 | External Medical Summary Rpt ---
Author Author , BRAYDEN OWEN Address Unknown Phone [email or web address] Care Team Providers Care Child Welfare Specialist Name Role Phone SANTI HANCOCK Unavailable Unavailable [facility] Unavailable Unavailable INC, [facility], Unavailable Unavailable [facility] MARTHA THOMAS Unavailable Unavailable [facility] Unavailable Unavailable [facility], [facility], Unavailable Unavailable PLLC, [facility], [facility] Purpose Continuity of Care Document - 07-03-2016 through 2016 Problems Code Diagnosis DOS Provider Status R1110 VOMITING 09-11-2016 [facility] R1111 VOMITING 09-11-2016 [facility] NAUSEA INC J0100 ACUTE 09-10-2016 [facility] SINUSITIS GROUP UNSPECIFIED R1011 RIGHT UPPER 09-10-2016 [facility] PAIN GROUP R05 COUGH 08-31-2016 [facility] R112 NAUSEA WITH 08-31-2016 [facility] VOMITING PHYSICIANS UNSPECIFIED GROUP R631 POLYDIPSIA 08-31-2016 [facility] Medications Na ND Rx [...] BL CY ET NT HI AN A OR 68 06 07 12 3 00 WA [...] 10 3- 7- 00 06 TO ve OR 00 20 20 08 WN ED 50 [...] DOS Code Location Performer Comment URNLS DIP 51041 [facility] CISNEROS 7 [facility] STICK/TAB INC INC LET REAGENT AUTO MICROSCOP Y CULTURE 93263 [facility] C[facility]NEROS BACTERIAL 7 [facility] INC INC QUANTTATI VE COLONY COUNT URINE URINE 58575 [facility] CISNEROS 7 [facility] TEST INC INC [place] [address] AM[facility] CISNEROS FREE 7 [facility] THYROXINE INC INC GENERAL 28864 [facility] PANEL INC INC HEMOGLOBI 29216 AM[facility] CISNEROS N 7 [facility] GLYCOSYLA INC INC OANH A1C RADIOLOGI 91592 [facility] CISNEROS C EXAM 7 [facility] CHEST 2 INC INC VIEWS FRONTAL&L ATERAL Encounters Encounter Start End Date Code Location Performer Type Date EMERGENCY 88301 [facility]IA Ignacio 7 [facility] DEPARTMEN INC T VISIT LOW/MODER SEVERITY EMERGENCY 59626 [facility] THOMAS 7 7 PHYSICIAN DEPARTMEN S, [facility] T VISIT HIGH/URGE NT SEVERITY HOSPITAL [facility]IA Ignacio 7 [facility] OUTPATIEN INC T OFFICE 73749 [facility] RADHA [facility] 7 7 PHYSICIAN T VISIT S GROUP 25 MINUTES OFFICE 24379 [facility] 7 7 PHYSICIAN T VISIT S GROUP 25 MINUTES [facility] AMELIA - 7 [address] [facility] [address] [facility] T
--- OUTSIDE RECORDS SUMMARY | 2016-10-22 19:10 | External Medical Summary Rpt ---
Author Author , BRAYDEN OWEN Address Unknown Phone [email or web address] Care Team Providers Care Ground Layer Name Role Phone SANTI HANCOCK Unavailable [facility]available [facility] Unavailable Unavailable INC, [facility], Unavailable Unavailable [facility] MARTHA THOMAS Unavailable Unavailable [facility] Unavailable Unavailable [facility], [facility], Unavailable Unavailable PLLC, [facility], [facility] Purpose Continuity of Care Document - 07-03-2016 through 2016 Problems Code Diagnosis DOS Provider Status R1110 VOMITING 09-11-2016 [facility] R1111 VOMITING 09-11-2016 [facility] NAUSEA INC J0100 ACUTE 09-10-2016 [facility] SINUSITIS GROUP UNSPECIFIED R1011 RIGHT UPPER 09-10-2016 [facility] PAIN GROUP R05 COUGH 08-31-2016 [facility] R112 NAUSEA WITH 08-31-2016 [facility] VOMITING PHYSICIANS UNSPECIFIED GROUP R631 POLYDIPSIA 08-31-2016 [facility] Medications Na ND Rx [...] DOS Code Location Performer Comment URNLS DIP 50513 AM[facility]IA CISNEROS 7 [facility] STICK/TAB INC INC LET REAGENT AUTO MICROSCOP Y CULTURE 34566 AMELIA CISNEROS BACTERIAL 7 [facility] INC INC QUANTTATI VE COLONY COUNT URINE URINE 04738 [facility] CISNEROS 7 [facility] TEST INC INC [place] [address] AMELIA CISNEROS FREE 7 [facility] THYROXINE INC INC GENERAL 25464 [facility] CISNEROS [facility] 7 [facility] PANEL INC INC HEMOGLOBI 81800 AMELIA CISNEROS N 7 [facility] GLYCOSYLA INC INC OANH A1C RADIOLOGI 87644 [facility] CISNEROS C EXAM 7 [facility] CHEST 2 INC INC VIEWS FRONTAL&L ATERAL Encounters Encounter Start End Date Code Location Performer Type Date EMERGENCY 79414 [facility]IA Ignacio 7 [facility] DEPARTMEN INC T VISIT LOW/MODER SEVERITY EMERGENCY 17276 W[facility] THOMAS 7 7 PHYSICIAN DEPARTMEN S, [facility] T VISIT HIGH/URGE NT SEVERITY HOSPITAL AM[facility]IA Ignacio 7 [facility] OUTPATIEN INC T OFFICE 74745 [facility] RAD[facility] 7 PHYSICIAN T VISIT S GROUP 25 MINUTES OFFICE 98902 [facility] 7 PHYSICIAN T VISIT S GROUP 25 MINUTES [facility] AM[facility]IA - 7 7 [facility] OUTPATIEN [facility] T
--- OUTSIDE RECORDS SUMMARY | 2016-10-22 19:10 | External Medical Summary Rpt ---
Demographics Preferred Language Korean Marital Status Unknown Temple Affiliation Unknown Race Unknown Ethnic Group Unknown Author Author GABY Address Unknown Phone Immunization No patient found.
--- OUTSIDE RECORDS SUMMARY | 2016-10-22 19:11 | External Medical Summary Rpt ---
Author Author [employer], [employer] Address Unknown Phone Unavailable Results Amylase [Enzymatic activity/volume] in Serum or Plasma Observa Value Referen Units Interpr Notes Date tion ce etation Range Amylase 25 - 115 U/L Normal No Oct 22 [Enzymati informati 2017 c on in 12:22 PM activity/ source volume] data in Serum or Plasma Comprehensive metabolic 2000 panel in Serum or Plasma Observa Value Referen Units Interpr Notes Date tion ce etation Range Albumin/G 1.1 - 1.8 No Low No Oct 22 lobulin informati informati 2016 [Mass on in on in 12:22 PM ratio] in source source Serum or data data Plasma Albumin 3.4 - 5.0 gm/dL Normal No Oct 22 [Mass/vol informati 2016 ume] in on in 12:22 PM Serum or source Plasma data Alkaline 46 - 116 U/L Normal No Oct 22 phosphata informati 2017 se on in 12:22 PM [Enzymati source c data activity/ volume] in Serum or Plasma Bilirubin 0.2 - 1.0 mg/dL Normal No Oct 22 .total informati 2016 [Mass/vol on in 12:22 PM ume] in source Serum or data Plasma Urea 7 - 18 mg/dL Low No Oct 22 nitrogen informati 2016 [Mass/vol on in 12:22 PM ume] in source Serum or data Plasma Calcium 8.5 - mg/dL Normal No Oct 22 [Mass/vol 10.1 informati 2016 ume] in on in 12:22 PM Serum or source Plasma data Chloride 98 - 107 mmoL/L Normal No Oct 22 [Moles/vo informati 2017 lume] in on in 12:22 PM Serum or source Plasma data Carbon 21.0 - mmoL/L Normal No Oct 22 dioxide, 32.0 informati 2017 total on in 12:22 PM [Moles/vo source lume] in data Serum or Plasma Creatinin 0.55 - mg/dL Normal No Oct 22 e 1.02 informati 2016 [Mass/vol on in 12:22 PM ume] in source Serum or data Plasma Creatinin 50 - 200 ML/MIN Normal No Oct 22 e renal informati 2016 clearance on in 12:22 PM source predicted data by Cockcroft -Gault formula Estimated 59- ML/MIN No REFERENCE Oct 22 informati RANGE: 2017 glomerula on in >60 12:22 PM r source ML/MIN/1. filtratio data 73 SQUARE n rate METERSIf (GF this patient is -A merican, then multiply theresult by 1.210. Globulin 1.3 - 3.2 gm/dL High No Oct 22 [Mass/vol informati 2016 ume] in on in 12:22 PM Serum source data Glucose 74 - 106 mg/dL Normal No Oct 22 [Mass/vol informati 2016 ume] in on in 12:22 PM Serum or source Plasma data Potassium 3.5 - 5.1 mmoL/L Normal K RESULT Oct 22 MAY BE 2016 [Moles/vo SLIGHTLY 12:22 PM lume] in ELEVATED Serum or DUE TO 2+ Plasma HEMOLYSIS Sodium 136 - 145 mmoL/L Normal No Oct 22 [Moles/vo informati 2017 lume] in on in 12:22 PM Serum or source Plasma data Aspartate 15 - 37 U/L Normal AST Oct 22 RESULT 2017 aminotran MAY BE 12:22 PM sferase SLIGHTLY [Enzymati ELEVATED c DUE TO 2+ activity/ volume] HEMOLYSIS in Serum or Plasma Alanine 12 - 78 U/L Normal No Oct 22 aminotran inform 2017 sferase on in 12:22 PM [Enzymati source c data activity/ volume] in Serum or Plasma Protein 6.4 - 8.2 gm/dL High No Oct 22 [Mass/vol informati 2016 ume] in on in 12:22 PM Serum or source Plasma data Lipase [Enzymatic activity/volume] in Serum or Plasma Observa Value Referen Units Interpr Notes Date tion ce etation Range Lipase 73 - 393 U/L Normal No Oct 22 [Enzymati informati 2017 c on in 12:22 PM activity/ source volume] data in Serum or Plasma CBC W Auto Differential panel in Blood Observa Value Referen Units Interpr Notes Date tion ce etation Range Granulocy 1.8 - 7.8 K/mm3 Normal No Oct 22 isaac informati 2017 [#/volume on in 12:22 PM ] in source Blood by data Automated count Granulocy 37.0 - % Normal No Oct 22 isaac/100 80.0 2016 leukocyte on in 12:22 PM s in source Blood by data Automated count Hematocri 37.0 - % High No Oct 22 t [Volume 47.0 2016 on in 12:22 PM Fraction] source of Blood data Hemoglobi 12.2 - g/dL Normal No Oct 22 n 16.2 2016 [Mass/vol on in 12:22 PM ume] in source Blood data Lymphocyt 0.7 - 4.5 K/mm3 Normal No Oct 22 es 2016 [#/volume on in 12:22 PM ] in source Unspecifi data ed specimen by Automated count Lymphocyt 10 - 50.0 % Normal No Oct 22 es 2016 [#/volume on in 12:22 PM ] in source Unspecifi data ed specimen by Automated count Erythrocy 27 - 31.2 pg Normal No Oct 22 te mean 2016 corpuscul on in 12:22 PM ar source hemoglobi data n [Entitic mass] Erythrocy 31.8 - g/dl Normal No Oct 22 te mean 35.4 2016 corpuscul on in 12:22 PM ar source hemoglobi data n concentra tion [Mass/vol ume] by Automated count Erythrocy 82.2 - fL Normal No Oct 22 te mean 97.8 2016 corpuscul on in 12:22 PM ar volume source [Entitic data volume] by Automated count Monocytes 0.1 - 1.0 K/mm3 Normal No Oct 222016 [#/volume on in 12:22 PM ] in source Blood by data Automated count Monocytes 1.7 - 9.3 % Normal No Oct 22 /100 inform2016 leukocyte on in 12:22 PM s in source Blood by data Automated count Platelets 142 - 424 K/mm3 Normal No Oct 222016 [#/volume on in 12:22 PM ] in source Blood data Erythrocy 4.2 - 5.4 M/mm3 Normal No Oct 22 isaac 2016 [#/volume on in 12:22 PM ] in source Amniotic data fluid Erythrocy 11.5 - % Normal No Oct 22 te 17.5 2016 distribut on in 12:22 PM ion width source [Entitic data volume] by Automated count Leukocyte 4.8 - K/mm3 Normal No Aug 10 s 10.8 informati 2017 [#/volume on in 12:22 PM ] in source Blood data Comprehensive metabolic 2000 panel in Serum or [...] Normal No Oct 20 dioxide, 32.0 informati 2016 total on in 11:15 AM [Moles/vo source [...] gm/dL High No Oct 20 [Mass/vol informati 2017 ume] in on in 11:15 AM Serum source data Glucose 74 - 106 mg/dL Low No Oct 20 [Mass/vol informati 2017 ume] in on in 11:15 AM Serum or source Plasma data Potassium 3.5 - 5.1 mmoL/L Normal No Oct 202016 [Moles/vo on in 11:15 AM lume] in [...] 78 U/L Normal No Oct 20 aminotran informati 2016 sferase on in 11:15 AM [Enzymati [...] No No Oct 20 adotropin informati informati informati 2016 on in on in on in 11:15 AM [Units/vo source source source lume] in data data data Serum or Plasma CBC W Auto Differential panel in Blood Observa Value Referen Units Interpr Notes Date tion ce etation Range Basophils 0 - 0.2 K/MM3 Normal No Oct 202016 [#/volume on in 11:15 AM ] in source Blood by data Automated count Basophils 0.1 - 2.0 % Normal No Oct 202016 leukocyte on in 11:15 AM s in [...] 7.8 K/mm3 Normal No Oct 20 isaac 2016 [#/volume on in 11:15 AM ] in source Blood by data Automated count Granulocy 37.0 - % Normal No Oct 20 isaac/100 80.0 informati 2016 leukocyte on in 11:15 AM s in source Blood by data Automated count Hematocri 37.0 - % High No Oct 20 t [Volume 47.0 ati 2016 on in 11:15 AM Fraction] source [...] 50.0 % Normal No Oct 20 es informati 2016 [#/volume on in 11:15 AM ] in source Unspecifi data ed specimen by Automated count Erythrocy 27 - 31.2 pg Normal No Oct 20 te mean 2016 corpuscul on in 11:15 AM ar source hemoglobi data n [Entitic mass] Erythrocy 31.8 - g/dl Normal No Oct 20 te mean 35.4 2016 corpuscul on in 11:15 AM ar source hemoglobi data n concentra tion [Mass/vol ume] by Automated count Erythrocy 82.2 - fl Normal No Oct 20 te mean 97.8 informati 2016 corpuscul on in 11:15 AM ar volume source [Entitic data volume] by Automated count Monocytes 0.1 - 1.0 K/mm3 Normal No Oct 202016 [#/volume on in 11:15 AM ] in source Blood by data Automated count Monocytes 1.7 - 9.3 % Normal No Oct 20 /100 2016 leukocyte on in 11:15 AM s in source Blood by data Automated count Platelet 7.4 - fl Normal No Oct 20 mean 10.4 2016 volume on in 11:15 AM [Entitic source volume] data in Blood by Automated count Platelets 142 - 424 K/mm3 Normal No Oct 20 informati 2016 [#/volume on in 11:15 AM ] in source Blood data Erythrocy 4.2 - 5.4 M/mm3 Normal No Oct 20 isaac informati 2016 [#/volume on in 11:15 AM ] in source Amniotic data fluid Erythrocy 11.5 - % Normal No Oct 20 te 17.5 2016 distribut on in 11:15 AM ion width source [Entitic data volume] by Automated count Leukocyte 4.8 - K/MM3 Normal No Oct 8 s 10.8 informati 2017 [#/volume on in 11:15 AM ] in [...] Sep 11 [Presen E informa informa informa 2017 ce] in tion in tion in tion in 9:30 AM Urine source source source sedimen data data data t by Light microsc opy Mucus 1+ OCC No No No Sep 11 [Presen informa informa informa 2017 ce] in tion in tion in tion [...] Normal No Aug 31 lobulin informati informati 2017 4:21 [Mass on in on in PM ratio] in source source Serum or data data Plasma Albumin 3.4 - 5.0 gm/dL Normal No Aug 31 [Mass/vol informati 2016 4:21 ume] in on in PM Serum or source Plasma data Alkaline 46 - 116 U/L Normal No Aug 31 phosphata informati 2016 4:21 se on in PM [Enzymati source [...] Normal No Aug 31 dioxide, 32.0 informati 2016 4:21 total on in PM [Moles/vo source lume] in data Serum or Plasma Creatinin 0.55 - mg/dL Normal No Aug 31 e 1.02 informati 2016 4:21 [Mass/vol on in PM [...] - 5.1 mmoL/L Normal No Aug 31 informati 2016 4:21 [Moles/vo on in PM lume] in source Serum or data Plasma Sodium 136 - 145 mmoL/L Normal No Aug 31 [Moles/vo informati 2017 4:21 lume] in on in PM Serum or source Plasma data Aspartate 15 - 37 U/L Low No Aug 31 informati 2016 4:21 aminotran on in PM sferase source [Enzymati data c activity/ volume] in Serum or Plasma Alanine 12 - 78 U/L Normal No Aug 31 aminotran inform2016 4:21 sferase on in PM [Enzymati source c data activity/ volume] in Serum or Plasma Protein 6.4 - 8.2 gm/dL Normal No Aug 31 [Mass/vol informati 2016 4:21 ume] in on in PM Serum or source Plasma data Thyroxine (T4) free [Mass/volume] in Serum or Plasma Observa Value Referen Units Interpr Notes Date tion ce etation Range Thyroxine 0.76 - ng/dL Normal No Aug 31 (T4) 1.46 inform2016 4:21 free on in PM [Mass/vol source ume] in data Serum or Plasma Thyrotropin [Units/volume] in Serum or Plasma Observa Value Referen Units Interpr Notes Date tion ce etation Range Thyrotrop 0.358 - uIU/ml High No Aug 31 in 3.740 informati 2016 4:21 [Units/vo on in PM lume] in source Serum or data Plasma CBC W Auto Differential panel in Blood Observa Value Referen Units Interpr Notes ti ce etation Range Basophils 0 - 0.2 K/MM3 Normal No Aug 31 inform2016 4:21 [#/volume on in PM ] in source Blood by data Automated count Basophils 0.1 - 2.0 % Normal No Aug 31 informati 2016 4:21 leukocyte on in PM [...] Normal No Aug 31 isaac/100 80.0 informati 2016 4:21 leukocyte on in PM s in source Blood by data Automated count Hematocri 37.0 - % High No Aug 31 t [Volume 47.0 informati 2017 4:21 on in PM Fraction] source of Blood data Hemoglobi 12.2 - g/dL Normal No Aug 31 n 16.2 informati 2017 4:21 [Mass/vol on in PM ume] in source Blood data Lymphocyt 0.7 - 4.5 K/mm3 Normal No Aug 31 es informati 2017 4:21 [#/volume on in PM ] in source Unspecifi data ed specimen by Automated count Lymphocyt 10 - 50.0 % Normal No Aug 31 es informati 2017 4:21 [#/volume on in PM ] in source Unspecifi data ed specimen by Automated count Erythrocy 27 - 31.2 pg Normal No Aug 31 te mean informati 2017 4:21 corpuscul on in PM ar source hemoglobi data n [Entitic mass] Erythrocy 31.8 - g/dl Normal No Aug 31 te mean 35.4 informati 2016 4:21 corpuscul on in PM ar source hemoglobi data n concentra tion [Mass/vol ume] by Automated count Erythrocy 82.2 - fl Normal No Aug 31 te mean 97.8 informati 2017 4:21 corpuscul on in PM ar volume source [Entitic data volume] by Automated count Monocytes 0.1 - 1.0 K/mm3 Normal No Aug 31 informati 2017 4:21 [#/volume on in PM ] in source Blood by data Automated count Monocytes 1.7 - 9.3 % Normal No Aug 19 /100 informati 2017 4:21 leukocyte on in PM s in source Blood by data Automated count Platelet 7.4 - fl Normal No Aug 31 mean 10.4 informati 2017 4:21 volume on in PM [Entitic source volume] data in Blood by Automated count Platelets 142 - 424 K/mm3 No No Aug 31 informati informati 2017 4:21 [#/volume on in on in PM ] in source source Blood data data Erythrocy 4.2 - 5.4 M/mm3 Normal No Aug 31 isaac informati 2017 4:21 [#/volume on in PM ] in source Amniotic data fluid Erythrocy 11.5 - % Normal No Aug 31 te 17.5 informati 2017 4:21 distribut on in PM ion width source [Entitic data volume] by Automated count Leukocyte 4.8 - K/MM3 High No Aug 31 s 10.8 informati 2017 4:21 [#/volume on in PM ] in source Blood data Hemoglobin A1c in Blood Observa Value Referen Units Interpr Notes Date tion ce etation Range Hemoglo 5.3 0.0 - % Normal < 6% Aug 31 bin A1c 7.0 NON-LALITHA 2017 in [facility] 4:21 PM Blood LEVEL< 7% CONTROL LED DIABETI C LEVEL> 8% POORLY CONTROL LED DIABETI C LEVEL Choriogonadotropin [Units/volume] in Serum or Plasma Observa Value Referen Units Interpr Notes Date tion ce etation Range Choriogon NEG No No No Aug 28 adotropin informati informati informati 2017 2:45 on in on in on in PM [Units/vo source source source lume] in data data data Serum or Plasma Amylase [Enzymatic activity/volume] in Serum or Plasma Observa Value Referen Units Interpr Notes Date tion ce etation Range Amylase 25 - 115 U/L Normal No Aug 28 [Enzymati informati 2017 2:45 c on in PM activity/ source volume] data in Serum or Plasma Comprehensive metabolic 2000 panel in Serum or Plasma Observa Value Referen Units Interpr Notes Date tion ce etation Range Albumin/G 1.1 - 1.8 No Normal No Aug 28 lobulin informati informati 2017 2:45 [Mass on in on in PM ratio] in source source Serum or data data Plasma Albumin 3.4 - 5.0 gm/dL Normal No Aug 28 [Mass/vol informati 2017 2:45 ume] in on in PM Serum or source Plasma data Alkaline 46 - 116 U/L Normal No Aug 28 phosphata informati 2016 2:45 se on in PM [Enzymati source c data activity/ volume] in Serum or Plasma Bilirubin 0.2 - 1.0 mg/dL Normal No Aug 16 .total informati 2017 2:45 [Mass/vol on in PM ume] in source Serum or data Plasma Urea 7 - 18 mg/dL Normal No Aug 28 nitrogen informati 2017 2:45 [Mass/vol on in PM ume] in source Serum or data Plasma Calcium 8.5 - mg/dL Normal No Aug 28 [Mass/vol 10.1 informati 2017 2:45 ume] in on in PM Serum or source Plasma data Chloride 98 - 107 mmoL/L Normal No Micah 16 [Moles/vo informati 2016 2:45 lume] in on in PM Serum or source Plasma data Carbon 21.0 - mmoL/L Normal No Aug 28 dioxide, 32.0 informati 2016 2:45 total on in PM [Moles/vo source lume] in data Serum or Plasma Creatinin 0.55 - mg/dL Low No Aug 16 e 1.02 informati 2016 2:45 [Mass/vol on [...] 74 - 106 mg/dL Normal No Aug 28 [Mass/vol informati 2016 2:45 ume] in on in PM Serum or source Plasma data Potassium 3.5 - 5.1 mmoL/L Normal No Aug 28 inform2016 2:45 [Moles/vo on in PM lume] in source Serum or data Plasma Sodium 136 - 145 mmoL/L Normal No Aug 28 [Moles/vo informati 2016 2:45 lume] in on [...] 6.4 - 8.2 gm/dL Normal No Aug 28 [Mass/vol informati 2016 2:45 ume] in on in PM Serum or source Plasma data Lipase [Enzymatic activity/volume] in Serum or Plasma Observa Value Referen Units Interpr Notes Date tion ce etation Range Lipase 73 - 393 U/L Low No Micah 16 [Enzymati informati 2017 2:45 c on in PM activity/ source volume] data in Serum or Plasma CBC W Auto Differential panel in Blood Observa Value Referen Units Interpr Notes Date tion ce etation Range Basophils 0 - 0.2 K/MM3 Normal No Aug 16 inform2016 2:45 [#/volume on in PM ] in source Blood by data Automated count Basophils 0.1 - 2.0 % Normal No Aug 16 /100 inform2016 2:45 leukocyte on in PM s in source Blood by data Automated count Eosinophi 0.0 - 0.4 K/mm3 Normal No Aug 16 ls informati 2016 2:45 [#/volume on in PM ] in source Blood by data Automated count Eosinophi 0.1 - % Normal No Aug 16 ls/100 12.0 inform2016 2:45 leukocyte on in PM s in source Blood by data Automated count Granulocy 1.8 - 7.8 K/mm3 Normal No Aug 16 isaac 2016 2:45 [#/volume on in PM ] in source Blood by data Automated count Granulocy 37.0 - % Normal No Aug 16 isaac/100 80.0 inform2016 2:45 leukocyte on in PM s in source Blood by data Automated count Hematocri 37.0 - % Normal No Aug 16 t [Volume 47.0 informati 2016 2:45 on in PM Fraction] source of Blood data Hemoglobi 12.2 - g/dL Normal No Aug 16 n 16.2 inform2016 2:45 [Mass/vol on in PM ume] in source Blood data Lymphocyt 0.7 - 4.5 K/mm3 Normal No Aug 28 es inform2016 2:45 [#/volume on in PM ] in source Unspecifi data ed specimen by Automated count Lymphocyt 10 - 50.0 % Normal No Aug 16 es inform2016 2:45 [#/volume on in PM ] in source Unspecifi data ed specimen by Automated count Erythrocy 27 - 31.2 pg Normal No Aug 16 te mean informati 2016 2:45 corpuscul on [...] - 1.0 K/mm3 Normal No Aug 16 inform2016 2:45 [#/volume on in PM ] in source Blood by data Automated count Monocytes 1.7 - 9.3 % Normal No Micah 16 /100 informati 2017 2:45 leukocyte on in PM s in source Blood by data Automated count Platelet 7.4 - fl Normal No Aug 16 mean 10.4 informati 2016 2:45 volume on in PM [Entitic source volume] data in Blood by Automated count Platelets 142 - 424 K/mm3 Normal No Aug 16 informati 2016 [...] Appeara Sl CLEAR No No No Aug 16 nce of Cloudy informa informa informa 2016 Urine tion in tion in tion in [...] Color OTHER YELLOW No No No Aug 16 of informa informa informa 2017 Urine tion in tion in tion in 2:21 PM source source source data data data Glucose NEG No No No Aug 28 [Mass/vol informati informati informati 2017 2:21 ume] in on in on in on in PM Urine by source source source Test data data data strip Ketones NEGATIV NEG mg/dL No No Aug 28 E informa informa 2016 [Presen tion in tion in 2:21 PM ce] in source source Urine data data by Automat ed test strip pH of 5.0 - 8.5 No Normal No Aug 16 Urine informati informati 2017 2:21 on in on in PM source source data data Protein NEG mg/dL No No Aug 28 [Mass/vol informati informati 2017 2:21 ume] in on in on in PM Urine by source source Automated data data test strip Specific 1.005 - No Normal No Aug 28 gravity 1.030 informati informati 2017 2:21 of Urine on in on in [...] Jun 21 OR informa informa informa informa 2011 tion in tion in tion in tion in 10:50 source source source source AM data data data data ETHNICI C No No No No Jun 9 TY informa informa informa informa 2011 tion in tion in tion in tion in 10:50 source source source source AM data data data data PURPOSE ROUTINE No No No No Jun 21 OF informa informa informa informa 2012 EXAM tion in tion in tion in tion in 10:50 source source source source AM data data data data SPECIME BLOOD No No No No Jun 21 N informa informa informa informa 2012 SOURCE tion in tion in tion in tion in 10:50 source source source source AM data data data data CHART [id number] No No No No Jun 21 NUMBER informa informa informa informa 2012 tion in tion in tion in tion in 10:50 source source source source AM data data data data Reagin NON-JETT No No No METHOD Jun 21 Ab CTIVE informa informa informa OF 2012 [...] ETHNICI C No No No No Jun 21 TY informa informa informa informa 2012 tion in tion in tion in tion in 10:50 source source source source AM data data data data PURPOSE ROUTINE No No No No Jun 21 OF informa informa informa informa 2012 EXAM tion in tion in tion in tion in 10:50 source source source source AM data data data data SPECIME BLOOD No No No No Jun 21 N informa informa informa informa 2012 SOURCE tion in tion in tion in tion in 10:50 source source source source AM data data data data CHART [id number] No No No No Jun 9 NUMBER informa informa informa informa 2012 tion in tion in tion in tion in 10:50 source source source source AM data data data data Reagin Pending No No No \.br\Th Apr 9 Ab informa informa informa is 2012 [Presen tion in tion in tion in report 10:50 ce] in source source source contain AM Unspeci data data data s fied patient specime n by informa VDRL tion that must be protect ed in accorda nce with the Health Ins[employer] ce Portabi lity and Account ability Act.
--- OUTSIDE RECORDS SUMMARY | 2016-10-22 19:11 | External Medical Summary Rpt ---
[...] 31 bin A1c 7.0 NON-LALITHA 2017 in [facility] 4:21 PM Blood LEVEL< 7% CONTROL LED [...] source AM data data data data CHART [id number] No No No No Jun 21 NUMBER [...] source AM data data data data CHART [id number] No No No No Jun 9 NUMBER [...]
[2016-10-23 00:37] VITALS: BP 133/51
[2016-10-23 04:36] VITALS: BP 111/65
[2016-10-23 07:04] LABS: LYMPH # 1.2 K/mm3 (0.7-4.5); LYMPH % 8.4 % (10-50.0)
[2016-10-23 07:05] LABS: HEMOGLOBIN 14.6 g/dL (12.2-16.2)
--- NOTE | 2016-10-23 07:56 | POST-OP PROGRESS NOTE ---
Post Op Subjective Data Patient is post-op day 1 Subjective data: She states that she "already feels better". She has continued to have "a little bit of nausea, but nothing like before". Post op objective data Vitals,I&O,and Labs: Vital signs, intake and output,and available lab data for the last 24 hours is as noted below. Vital Signs Date Time Temp Pulse Resp B/P Pulse O2 O2 Flow FiO2 Ox Delivery Rate 10/23 0726 20 10/23 0436 97.9 61 20 111/65 93 ROOM AIR 10/23 0321 18 10/23 0037 98.0 67 18 133/51 93 ROOM AIR 08/10 2318 18 08/10 2300 98.0 79 18 109/59 96 08/10 2200 98.0 74 18 106/67 96 08/10 2108 98.4 94 18 125/85 96 ROOM AIR 08/10 2107 98.4 94 18 125/85 96 08/10 2100 98.2 79 18 116/71 96 08/10 2059 18 08/10 2000 98.2 82 18 118/79 98 08/10 1900 98.2 77 18 112/84 97 08/10 1850 18 08/10 1830 98.2 73 20 118/75 99 08/10 1800 98.1 80 18 127/82 97 08/10 1730 98.0 72 20 115/70 92 08/10 1700 98.1 75 18 111/75 96 08/10 1645 98.2 80 18 108/80 97 08/10 1630 97.4 74 20 117/76 96 08/10 1623 97.1 75 18 121/60 97 08/10 1620 97.1 75 18 121/60 96 ROOM AIR 08/10 1615 97.1 75 18 121/60 97 08/10 1605 97.5 68 18 125/74 99 ROOM AIR 08/10 1555 77 18 122/73 97 ROOM AIR 08/10 1549 82 16 122/95 95 08/10 1546 97.7 08/10 1545 18 08/10 1545 76 20 133/92 97 ROOM AIR 08/10 1538 97.7 75 14 116/80 95 08/10 1535 97.7 75 18 116/80 95 ROOM AIR 08/10 1411 98.6 82 16 122/95 98 08/10 1346 98.6 82 16 122/95 98 08/10 1300 98.6 82 16 122/95 98 10/22 1213 98.6 82 16 122/95 98 10/22 1500 10/22 2300 10/23 0700 Intake Total 1105 810 Output Total 0 Balance 1105 810 Intake, IV 25 210 Intake, Oral 1080 600 Intake, Tube 0 Irrigant Output, 0 Emesis Output, 0 Estimated Blood Loss Output, Other 0 Output, Urine 0 Patient 68.947 kg 76.289 kg Weight Laboratory Tests Test Result Date Time Chemistry Sodium (mmoL/L) 137 10/23 06 Potassium (mmoL/L) 4.7 10/23 620 Chloride (mmoL/L) 105 10/23 620 Carbon Dioxide (mmoL/L) 24 10/23 620 BUN (mg/dL) 5 10/23 620 Creatinine (mg/dL) 0.6 10/23 620 Estimated Creat Clear (ML/MIN) 153 10/23 620 Estimated GFR (MDRD) (ML/MIN) 112 10/23 620 Glucose (mg/dL) 126 10/23 620 Calcium (mg/dL) 9.1 10/23 620 Total Bilirubin (mg/dL) 0.9 10/23 620 AST (U/L) 23 10/23 620 ALT (U/L) 29 10/23 620 Alkaline Phosphatase (U/L) 60 10/23 620 Total Protein (gm/dL) 6.6 10/23 620 Albumin (gm/dL) 3.2 10/23 620 Globulin (gm/dL) 3.4 10/23 620 Albumin/Globulin Ratio 0.9 10/23 620 Amylase (U/L) 41 10/22 1222 Lipase (U/L) 112 10/22 1222 Hematology WBC (K/MM3) 14.5 10/23 620 RBC (M/mm3) 4.77 10/23 620 Hgb (g/dL) 14.6 10/23 620 Hct (%) 44.7 10/23 620 MCV (fl) 93.7 10/23 620 RDW (%) 12.5 10/23 620 Plt Count (K/mm3) 257 10/23 620 MPV (fl) 8.1 10/23 620 Gran % (%) 87.0 10/23 620 Gran # (K/mm3) 12.7 10/23 620 Lymphocytes % (%) 8.4 10/23 620 Monocytes % (%) 4.0 10/23 620 Eosinophils % (%) 0.5 10/23 620 Basophils % (%) 0.2 10/23 620 Lymphocytes # (K/mm3) 1.2 10/23 620 Monocytes # (K/mm3) 0.6 10/23 620 Eosinophils # (K/mm3) 0.1 10/23 620 Basophils # (K/MM3) 0.0 10/23 620 PUBS MCHC (g/dl) 32.9 10/23 620 Immunology MCH (pg) 30.8 10/23 620 Physical Exam VS/I&O Vital Signs Date Time Temp Pulse Resp B/P Pulse O2 O2 Flow FiO2 Ox Delivery Rate 10/23 07 20 10/23 0436 97.9 61 20 111/65 93 ROOM AIR 10/23 0321 18 10/23 0037 98.0 67 18 133/51 93 ROOM AIR / 2318 18 08/ 2300 98.0 79 18 109/59 96 08/10 2200 98.0 74 18 106/67 96 08/10 2108 98.4 94 18 125/85 96 ROOM AIR 08/ 2107 98.4 94 18 125/85 96 08/10 2100 98.2 79 18 116/71 96 08/10 2059 18 08/10 2000 98.2 82 18 118/79 98 08/10 1900 98.2 77 18 112/84 97 08/10 1850 18 08/10 1830 98.2 73 20 118/75 99 08/10 1800 98.1 80 18 127/82 97 08/10 1730 98.0 72 20 115/70 92 08/10 1700 98.1 75 18 111/75 96 08/10 1645 98.2 80 18 108/80 97 08/10 1630 97.4 74 20 117/76 96 08/10 1623 97.1 75 18 121/60 97 08/10 1620 97.1 75 18 121/60 96 ROOM AIR 08/10 1615 97.1 75 18 121/60 97 08/10 1605 97.5 68 18 125/74 99 ROOM AIR 08/10 1555 77 18 122/73 97 ROOM AIR 08/10 1549 82 16 122/95 95 10/22 1546 97.7 10/22 1545 18 / 1545 76 20 133/92 97 ROOM AIR 10/22 1538 97.7 75 14 116/80 95 / 1535 97.7 75 18 116/80 95 ROOM AIR 10/22 1411 98.6 82 16 122/95 98 /10 1346 98.6 82 16 122/95 98 10/22 1300 98.6 82 16 122/95 98 10/22 1213 98.6 82 16 122/95 98 I&O 10/23 0700 Intake Total 1915 Output Total 0 Balance 1915 Intake, IV 235 Intake, Oral 1680 Intake, Tube 0 Irrigant Output, 0 Emesis Output, 0 Estimated Blood Loss Output, Other 0 Output, Urine 0 Patient 76.289 kg Weight Exam General appearance no acute distress Respiratory no distress Cardiovascular regular rate and rhythm Abdomen soft (dressings dry and intact) Post op patient plan Diagnoses: Acute on chronic calculus cholecystitis-overall, doing very well status post laparoscopic cholecystectomy Plan: Advance diet, Ambulate, discharge home This inpt stay is expected to cross 2 MNs from start of care No at 0756
[2016-10-23] MEDS ORDERED: NORCO 325 MG-51 TAB PO (07:59)
[2016-10-23 08:00] VITALS: BP 100/59
--- NOTE | 2016-10-23 08:03 | Discharge Summary Report ---
General Admit date: 10/22/16 Discharge date: 10/23/16 Admission Dx: Acute on chronic calculus cholecystitis Discharge Dx: Same Hospital course: The patient presented to the emergency department with increasing nausea and vomiting and RIGHT upper quadrant abdominal pain. She had previously been diagnosed with chronic cholecystitis and was scheduled for laparoscopic cholecystectomy on October 30, 2016. Upon reevaluation she was found to be afebrile with stable normal vital signs. Her laboratory evaluation revealed no significant abnormality. Unfortunately, her symptoms did not resolve and the decision was made to proceed with laparoscopic cholecystectomy. Please see operative report for detail. She was admitted for observation postoperatively secondary to significant nausea, vomiting and concomitant dehydration. The following morning she was without complaint. She was afebrile with stable normal vital signs and deemed appropriate for discharge home. Condition at discharge: improved Problem List Medical Problems Biliary colic Cholecystitis Cholelithiasis Constipation Intractable nausea and vomiting Nausea & vomiting Upper respiratory infection UTI (urinary tract infection) Viral gastroenteritis Vomiting alone Allergies Coded Allergies: Penicillins (10/22/16) [facility] summary Medications Active Scripts Ondansetron (Zofran 4MG Odt) 4 MG PO Q6HP PRN NAUSEA AND VOMITING #20 TAB Prov: 08/25/16 Hydroxyzine Pamoate (Vistaril 25MG CAP) 25 MG PO Q6HP PRN vomiting #10 CAP Prov: 09/11/16 PROMETHAZINE HCL (Promethazine 25mg Tab) 25 MG PO Q6HP PRN NAUSEA AND VOMITING #12 TAB Prov: 08/22/16 Reported Medications CLONIDINE HCL (Clonidine 0.1MG) 0.1 MG PO NIGHTLY #30 Meloxicam (Meloxicam 7.5MG) 7.5 MG PO DAILY #30 Sertraline Hcl (Sertraline 50MG) 25 MG PO DAILY #45 Txs and Procedures Treatments and Procedures: laparoscopic cholecystectomy Labs: Laboratory Tests 10/23/16 0621: Sodium 137, Potassium 4.7, Chloride 105, Carbon Dioxide 24, BUN 5 L, Creatinine 0.6, Estimated Creat Clear 153, Estimated GFR (MDRD) 112, Glucose 126 H, Calcium 9.1, Total Bilirubin 0.9, AST 23, ALT 29, Alkaline Phosphatase 60, Total Protein 6.6, Albumin 3.2 L, Globulin 3.4 H, Albumin/Globulin Ratio 0.9 L, WBC 14.5 H, RBC 4.77, Hgb 14.6, Hct 44.7, MCV 93.7, RDW 12.5, Plt Count 257, MPV 8.1, Gran % 87.0 H, Gran # 12.7 H, Lymphocytes % 8.4 L, Monocytes % 4.0, Eosinophils % 0.5, Basophils % 0.2, Lymphocytes # 1.2, Monocytes # 0.6, Eosinophils # 0.1, Basophils # 0.0, PUBS MCHC 32.9, MCH 30.8 10/22/16 1222: Sodium 138, Potassium 4.0, Chloride 102, Carbon Dioxide 27, BUN 5 L, Creatinine 0.6, Estimated Creat Clear 138, Estimated GFR (MDRD) 112, Glucose 94, Calcium 9.2, Total Bilirubin 0.8, AST 21, ALT 25, Alkaline Phosphatase 76, Total Protein 8.4 H, Albumin 4.1, Globulin 4.3 H, Albumin/Globulin Ratio 1.0 L, Amylase 41, Lipase 112, WBC 9.7, RBC 5.34, Hgb 16.0, Hct 48.7 H, MCV 91.2, RDW 14.7, Plt Count 240, Gran % 68.0, Gran # 6.6, Lymphocytes % 28.5, Monocytes % 3.6, Lymphocytes # 2.8, Monocytes # 0.3, PUBS MCHC 32.9, MCH 30.0 at 0803
[2016-10-23 08:18] LABS: NEUTROPHILS 86 % (42-76)
[2016-10-23 09:00] VITALS: BP 108/55
[2016-10-28] MEDS ORDERED: PROTONIX 40MG T40 MG PO (09:29)
[2016-11-16] MEDS ORDERED: REGLAN10 M2 PO (08:10)
[2016-11-16] MEDS ORDERED: ZOFRAN4 MG PO (08:10)
[2016-11-16] MEDS ORDERED: PHENERGAN25 M3 PO (08:10)
== END 2016-10-23 09:00 | disposition home or self-care (01) ==
LOC: ER 12:04 → 2ND 13:35
PROVIDERS: Emergency Medicine; Surgery
PROC: 0FT44ZZ Resection of Gallbladder, Percutaneous Endoscopic Approach (ICD-10-PCS; principal; 2016-10-22 13:57)
DX: K81.2 Acute cholecystitis with chronic cholecystitis (principal)
CPT/HCPCS: G0378; J2405; J2710

== ENCOUNTER 2016-10-27 05:03 | Emergency (ER) | payer MEDICAID ==
[~2016-10-27] VITALS: Ht 160 cm; Wt 68.0 kg
[~2016-10-27 05:03] MED LIST changes: +NORCO 325 MG-51 TAB PO
--- OUTSIDE RECORDS SUMMARY | 2016-10-27 05:45 | External Medical Summary Rpt ---
Author Author , BRAYDEN OWEN Address Unknown Phone [email or web address] Care Team Providers Care Marketing Services Specialist Name Role Phone SANTI HANCOCK Unavailable Unavailable [facility] Unavailable Unavailable INC, [facility], Unavailable Unavailable [facility] MARTHA THOMAS Unavailable Unavailable [facility] Unavailable Unavailable [facility], [facility], Unavailable Unavailable PLLC, [facility], [facility] Purpose Continuity of Care Document - 07-03-2016 through 2016 Problems Code Diagnosis DOS Provider Status R1110 VOMITING 09-11-2016 [facility] R1111 VOMITING 09-11-2016 [facility] NAUSEA INC J0100 ACUTE 09-10-2016 [facility] SINUSITIS GROUP UNSPECIFIED R1011 RIGHT UPPER 09-10-2016 [facility] PAIN GROUP R05 COUGH 08-31-2016 [facility] R112 NAUSEA WITH 08-31-2016 [facility] VOMIT[facility] PHYSICIANS UNSPECIFIED GROUP R631 POLYDIPSIA 08-31-2016 [facility] Medications Na ND [...] Procedure DOS Code Location Performer Comment URINE 23245 [facility] CISNEROS 7 [facility] TEST INC INC VISUAL COLOR CMPRSN METHS URNLS DIP 82728 [facility] C[facility]NEROS 7 [facility] STICK/TAB INC INC LET REAGENT AUTO MICROSCOP Y CULTURE 02570 [facility] BACTERIAL 7 [facility] H[facility] INC INC QUANTTATI VE COLONY COUNT URINE GENERAL 61520 [facility] 7 [facility] [place] [address] [facility] CISNEROS FREE 7 [facility] HOS[facility] THYROXINE INC INC HEMOGLOBI 15819 [facility] C[facility]NEROS N 7 [facility] H[facility] GLYCOSYLA INC INC OANH A1C RADIOLOGI 86467 [facility] C[facility]NEROS C EXAM 7 [facility]OSP CHEST 2 INC INC VIEWS FRONTAL&L ATERAL Encounters Encounter Start End Date Code Location Performer Type Date EMERGENCY 95001 AMELIA 7 7 MEM [facility] DEPARTMEN INC T VISIT LOW/MODER SEVERITY EMERGENCY 87307 [facility] THOMAS 7 7 PHYSICIAN DEPARTMEN S, [facility] T VISIT HIGH/URGE NT SEVERITY HOSPITAL [facility] Ignacio 7 [facility] OUTPATIEN INC T OFFICE 29045 [facility] PHYSIC[facility] T [facility]ISIT S GROUP 25 MINUTES OFFICE 94397 [facility] 7 PHYSICIAN T VISIT S GROUP 25 MINUTES [facility] AMELIA - 7 [address] [facility] [address] [facility] T
--- OUTSIDE RECORDS SUMMARY | 2016-10-27 05:45 | External Medical Summary Rpt ---
Author Author , BRAYDEN Lovett BRAYDEN Address Unknown Phone [email or web address] Care Team Providers Care Range Mounter Name Role Phone ARMIDA ARMIDA Unavailable Unavailable SANTI HANCOCK Unavailable Unavailable [facility] Unavailable Unavailable INC, [facility], Unavailable Unavailable [facility] THOMAS, THOMAS Unavailable Unavailable [facility] Unavailable Unavailable IM[facility]ING [facility], [facility], Unavailable Unavailable PLLC, [facility], [facility] Purpose Continuity of Care Document - 06-22-2011 through 2016 Problems Code Diagnosis DOS Provider Status R1110 VOMITING 09-11-2016 [facility] R1111 VOMITING 09-11-2016 [facility] NAUSEA INC J0100 ACUTE 09-10-2016 [facility] SINUSITIS GROUP UNSPECIFIED R1011 RIGHT UPPER 09-10-2016 [facility] PAIN GROUP R05 COUGH 08-31-2016 [facility] R112 NAUSEA WITH 08-31-2016 [facility] VOMITING PHYSICIANS UNSPECIFIED GROUP R631 POLYDIPSIA 08-31-2016 [facility] K80.20 CALCULUS OF GALLBLADDER W/O CHOLECYSTIT IS W/O OBSTRUCTION K80.50 CALCULUS OF BILE DUCT W/O CHOLANGITIS OR CHOLECYST W/O OBST K81.9 CHOLECYSTIT IS, UNSPECIFIED R11.11 VOMITING WITHOUT NAUSEA R11.2 NAUSEA WITH VOMITING, UNSPECIFIED Medications Na ND Rx Da Fi Fi [...] 00 ME ti AL 00 9- 8- 00 06 TO ve EX 12 20 20 [...] CA CY P NT HI AN A CL 68 06 07 30 30 00 HO Ac ON 00 -2 -2 .0 00 ME ti ID 10 2- 1- 00 06 TO ve IN 23 20 20 08 WN E 70 17 17 95 HC 3 24 PH L AR 0. MA 1 CY MG OF TA BL CY ET NT HI AN A ON 00 06 [...] OF ET CY NT HI AN A AZ 68 06 07 6. 5 00 [...] 10 3- 7- 00 06 TO ve NV 00 20 20 08 WN ED 50 [...] BL CY ET NT HI AN A NV 68 06 07 12 3 00 WA Ac OM 38 -1 -0 .0 00 L- ti ET 20 0- 7- 00 07 MA ve BOND 04 20 20 49 RT ZI 10 17 17 27 NE 1 49 PH AR 25 MA CY MG #5 TA 91 BL ET ME 68 05 06 30 30 00 [...] 2- 3- 00 06 TO ve IN 20 20 08 WN E 70 17 [...] M OF CY NT HI AN A HY 45 03 [...] BL CY ET NT HI AN A Results Labs Lab Lab Date Result Refere Interp Status Commen Order Detail nces retati t Range on Differential panel, method unspecified - (10-23-2016 06:21) LYMPH 10 % 10% - Normal complet 017 50% ed 06:21 Platele NORMAL complet ts 017 ed [Presen 06:21 ce] in Blood by Light microsc opy Urinalysis dipstick W Reflex Microscopic panel in [...] Microscopic panel in Urine (09-11-2016 09:30) Appeara 30-2 CLOUDY CLEAR complet nce of 017 ed Urine 09:30 Bilirub 09-11-2 NEGATIV NEG complet in 017 E ed [Presen 09:30 ce] in Urine by Test strip Erythro TRACE-I NEG complet cytes 017 NTACT ed [Presen 09:30 ce] in Urine Color YELLOW YELLOW complet of 017 ed Urine 09:30 Ketones NEGATIV NEG complet 017 E ed [Presen 09:30 ce] in Urine by Automat ed test strip Mucus NEGATIV NEG complet [Presen 017 E ed ce] in 09:30 Urine sedimen t by Light microsc opy Nitrite NEGATIV NEG complet 017 E ed [Presen 09:30 ce] in Urine by Test strip Urobili 1.0 NEG complet nogen 017 ed [Presen [...] ce] in Urine by Test strip Erythro 08-28-2 TRACE NEG Abnorma complet cytes 017 l ed [Presen 14:21 ce] in Urine Color OTHER YELLOW complet of 017 ed Urine 14:21 Ketones 08-28-2 NEGATIV NEG complet 017 E ed [Presen 14:21 ce] in Urine by Automat ed test strip Leukocy 08-28-2 TRACE NEG Abnorma complet te 017 l ed esteras 14:21 e [Presen ce] in Urine by Automat ed test strip Nitrite 08-28-2 NEGATIV NEG complet 017 E ed [Presen 14:21 ce] in Urine by Test strip Urobili 2.0 NEG complet nogen 017 ed [Presen 14:21 ce] in Urine by Test strip Urine test by rapid immunoassa (08-28-2016 14:17) Urine NEGATIV NEG complet pregnan 017 E ed [...] complet N 012 ed SOURCE 10:50 CHART [id number] complet NUMBER 012 ed 10:50 Reagin Pending complet Ab 012 ed [Presen 10:50 ce] in Unspeci fied specime n by VDRL Procedures Procedure DOS Code Location Performer Comment URINE 90974 [facility] TEST INC INC VISUAL COLOR CMPRSN METHS CULTURE 19937 [facility] BACTERIAL 7 [facility] INC INC QUANTTATI VE COLONY COUNT URINE URNLS DIP 16983 [facility] 7 [facility] STICK/TAB INC INC LET REAGENT AUTO MICROSCOP Y HEMOGLOBI 44803 [facility] C[facility]NER[facility] N 7 MEM H[facility] MEM HOSP GLYCOSYLA INC INC OANH A1C RADIOLOGI 04627 [facility] C EXAM 7 MEDICAL CHEST 2 IMAGING VIEWS ASS FRONTAL&[place] [address] [facility] FREE 7 [facility] H[facility]OS[facility] THYROXINE INC INC GENERAL 51877 [facility] 7 [facility] PANEL INC INC Encounters Encounter Start End Date Code Location Performer Type Date HOSPITAL [facility] - 7 7 [facility] OUTPATIEN INC T EMERGENCY 77422 [facility] THOMAS 7 7 PHYSICIAN DEPARTMEN S, [facility] T VISIT HIGH/URGE NT SEVERITY EMERGENCY 78761 [facility] 7 7 [facility] DEPARTMEN INC T VISIT LOW/MODER SEVERITY [facility]ICE 12446 [facility] T VISIT S GROUP 25 MINUTES [facility] AM[facility]IA Ignacio 7 [facility]EN INC T OFFICE 65626 [facility] 7 PHYSICIAN T VISIT S GROUP 25 MINUTES
--- OUTSIDE RECORDS SUMMARY | 2016-10-27 05:45 | External Medical Summary Rpt ---
Author Author , BRAYDEN OWEN Address Unknown Phone [email or web address] Team Providers Care Save All Operator Name Role Phone SANTI HANCOCK Unavailable Unavailable [facility] Unavailable Unavailable INC, [facility], Unavailable Unavailable [facility] MARTHA THOMAS Unavailable Unavailable [facility] Unavailable Unavailable IM[facility]ING [facility], [facility], Unavailable Unavailable PLLC, [facility], [facility] Purpose Continuity of Care Document - 07-03-2016 through 2016 Problems Code Diagnosis DOS Provider Status R1110 VOMITING 09-11-2016 [facility] R1111 VOMITING 09-11-2016 [facility] NAUSEA INC J0100 ACUTE 09-10-2016 [facility] SINUSITIS GROUP UNSPECIFIED R1011 RIGHT UPPER 09-10-2016 [facility] PAIN GROUP R05 COUGH 08-31-2016 [facility] R112 NAUSEA WITH 08-31-2016 [facility] VOMITING PHYSICIANS UNSPECIFIED GROUP R631 POLYDIPSIA 08-31-2016 [facility] Medications Na ND Rx Da [...] BL CY ET NT HI AN A NE 68 06 07 12 3 00 WA [...] 10 3- 7- 00 06 TO ve NE 00 20 20 08 WN ED 50 [...] Procedure DOS Code Location Performer Comment URINE 77848 [facility] CISNEROS 7 [facility] TEST INC INC VISUAL COLOR CMPRSN METHS URNLS DIP 64609 [facility] CISNEROS 7 [facility]OS[facility] STICK/TAB INC INC LET REAGENT AUTO MICROSCOP Y CULTURE 68589 [facility]NER[facility] BACTERIAL 7 MEM H[facility] MEM [facility]OS[facility] INC INC QUANTTATI VE COLONY COUNT URINE GENERAL 93664 [facility] 7 [facility] [place] [address] [facility] CISNEROS FREE 7 [facility] HOS[facility] THYROXINE INC INC HEMOGLOBI 99765 [facility]NER[facility] N 7 [facility] GLYCOSYLA INC INC OANH A1C RADIOLOGI 27262 [facility] C[facility]NEROS C EXAM 7 [facility] HOSP CHEST 2 INC INC VIEWS FRONTAL&L ATERAL Encounters Encounter Start End Date Code Location Performer Type Date EMERGENCY 58127 [facility] 7 7 MEM HOS[facility] DEPARTMEN INC T VISIT LOW/MODER SEVERITY EMERGENCY 70259 [facility] THOMAS 7 7 PHYSICIAN DEPARTMEN S, [facility] T VISIT HIGH/URGE NT SEVERITY HOSPITAL [facility] Ignacio 7 [facility] OUTPATIEN INC T OFFICE 17967 [facility] 7 PHYSICIAN T VISIT S GROUP 25 MINUTES OFFICE 74721 [facility] 7 7 PHYSICIAN T VISIT S GROUP 25 MINUTES [facility] AMELIA - 7 7 [facility] OUTPATIEN [facility] T
--- OUTSIDE RECORDS SUMMARY | 2016-10-27 05:45 | External Medical Summary Rpt ---
Author Author , BRAYDEN Lovett BRAYDEN Address Unknown Phone .[employer] Care Team Providers Care Per Diem Name Role Phone ARMIDA ARMIDA Unavailable Unavailable SANTI HANCOCK Unavailable Unavailable [facility] Unavailable Unavailable INC, [facility], Unavailable Unavailable [facility] THOMAS, THOMAS Unavailable Unavailable [facility] Unavailable Unavailable IM[facility]ING [facility], [facility], Unavailable Unavailable PLLC, [facility], [facility] Purpose Continuity of Care Document - 06-22-2011 through 2016 Problems Code Diagnosis DOS Provider Status R1110 VOMITING 09-11-2016 [facility] R1111 VOMITING 09-11-2016 [facility] NAUSEA INC J0100 ACUTE 09-10-2016 [facility] SINUSITIS GROUP UNSPECIFIED R1011 RIGHT UPPER 09-10-2016 [facility] PAIN GROUP R05 COUGH 08-31-2016 [facility] R112 NAUSEA WITH 08-31-2016 [facility] VOMIT[facility] PHYSICIANS UNSPECIFIED GROUP R631 POLYDIPSIA 08-31-2016 [facility] K80.20 CALCULUS OF GALLBLADDER [...] 10 3- 7- 00 06 TO ve VA 00 20 20 08 WN ED 50 [...] BL CY ET NT HI AN A VA 68 06 07 12 3 00 WA [...] complet N 012 ed SOURCE 10:50 CHART [id number] complet NUMBER 012 ed 10:50 Reagin Pending complet Ab 012 ed [Presen 10:50 ce] in Unspeci fied specime n by VDRL Procedures Procedure DOS Code Location Performer Comment URINE 37305 [facility] 7 [facility] TEST INC INC VISUAL COLOR CMPRSN METHS CULTURE 05330 [facility] BACTERIAL 7 [facility] H[facility] INC INC QUANTTATI VE COLONY COUNT URINE URNLS DIP 65136 [facility]NER[facility] 7 [facility] H[facility] STICK/TAB INC INC LET REAGENT AUTO MICROSCOP Y HEMOGLOBI 68214 [facility] C[facility]NEROS N 7 MEM HOSP MEM HOSP GLYCOSYLA INC INC OANH A1C RADIOLOGI 06883 [place] [facility] C EXAM 7 MEDICAL CHEST 2 IMAGING VIEWS ASS FRONTAL&[place] [address] [facility] C[facility] FREE 7 [facility] H[facility] MEM HOS[facility] THYROXINE INC INC GENERAL 02481 [facility] 7 [facility] PANEL INC INC Encounters Encounter Start End Date Code Location Performer Type Date HOSPITAL [facility] - 7 7 [facility] OUTPATIEN INC T EMERGENCY 26486 WIL[facility] THOMAS 7 7 PHYSICIAN DEPARTMEN S, [facility] T VISIT HIGH/URGE NT SEVERITY EMERGENCY 99868 AMELIA 7 7 [facility] DEPARTMEN INC T VISIT LOW/MODER SEVERITY OFFICE 00616 [facility] T V[facility] 7 [facility] OUTPATIEN INC T [facility]ICE 71857 [facility] 7 PHYSICIAN T VISIT S GROUP 25 MINUTES
--- OUTSIDE RECORDS SUMMARY | 2016-10-27 05:46 | External Medical Summary Rpt ---
Demographics Preferred Language French Marital Status Unknown Episcopalian Affiliation Unknown Race Unknown Ethnic Group Unknown Author Author GABY Address Unknown Phone Immunization No patient found.
--- OUTSIDE RECORDS SUMMARY | 2016-10-27 05:46 | External Medical Summary Rpt ---
Demographics Preferred Language Occitan Marital Status Unknown Mosque Affiliation Unknown Race Unknown Ethnic Group Unknown Author Author GABY Address Unknown Phone Immunization No patient found.
--- OUTSIDE RECORDS SUMMARY | 2016-10-27 05:47 | External Medical Summary Rpt ---
Author Author [employer], [employer] Address Unknown Phone Unavailable Results CBC W Auto Differential panel in Blood Observa Value Referen Units Interpr Notes Date tion ce etation Range Basophils 0 - 0.2 K/MM3 Normal No Oct 23 informati 2017 6:21 [#/volume on in AM ] in source Blood by data Automated count Basophils 0.1 - 2.0 % Normal No Oct 23 informati 2017 6:21 leukocyte on in AM s in source Blood by data Automated count Eosinophi 0.0 - 0.4 K/mm3 Normal No Oct 23 ls informati 2017 6:21 [#/volume on in AM ] in source Blood by data Automated count Eosinophi 0.1 - % Normal No Oct 23 ls/100 12.0 informati 2017 6:21 leukocyte on in AM s in source Blood by data Automated count Granulocy 1.8 - 7.8 K/mm3 High No Oct 23 isaac informati 2017 6:21 [#/volume on in AM ] in source Blood by data Automated count Granulocy 37.0 - % High No Oct 23 isaac/100 80.0 informati 2017 6:21 leukocyte on in AM s in source Blood by data Automated count Hematocri 37.0 - % Normal No Oct 23 t [Volume 47.0 informati 2017 6:21 on in AM Fraction] source of Blood data Hemoglobi 12.2 - g/dL No No Oct 23 n 16.2 informati informati 2017 6:21 [Mass/vol on in on in AM ume] in source source Blood data data Lymphocyt 0.7 - 4.5 K/mm3 Normal No Oct 23 es informati 2017 6:21 [#/volume on in AM ] in source Unspecifi data ed specimen by Automated count Lymphocyt 10 - 50.0 % Low No Oct 23 es informati 2017 6:21 [#/volume on in AM ] in source Unspecifi data ed specimen by Automated count Erythrocy 27 - 31.2 pg Normal No Oct 23 te mean informati 2017 6:21 corpuscul on in AM ar source hemoglobi data n [Entitic mass] Erythrocy 31.8 - g/dl Normal No Oct 23 te mean 35.4 informati 2017 6:21 corpuscul on in AM ar source hemoglobi data n concentra tion [Mass/vol ume] by Automated count Erythrocy 82.2 - fl Normal No Oct 23 te mean 97.8 informati 2016 6:21 corpuscul on in AM ar volume source [Entitic data volume] by Automated count Monocytes 0.1 - 1.0 K/mm3 Normal No Oct 23 informati 2016 6:21 [#/volume on in AM ] in source Blood by data Automated count Monocytes 1.7 - 9.3 % Normal No Oct 23 informati 2016 6:21 leukocyte on in AM s in source Blood by data Automated count Platelet 7.4 - fl Normal No Oct 23 mean 10.4 informati 2017 6:21 volume on in AM [Entitic source volume] data in Blood by Automated count Platelets 142 - 424 K/mm3 Normal No Oct 23 informati 2016 6:21 [#/volume on in AM ] in source Blood data Erythrocy 4.2 - 5.4 M/mm3 Normal No Oct 23 isaac informati 2017 6:21 [#/volume on in AM ] in source Amniotic data fluid Erythrocy 11.5 - % Normal No Oct 23 te 17.5 informati 2017 6:21 distribut on in AM ion width source [Entitic data volume] by Automated count Leukocyte 4.8 - K/MM3 High No Oct 23 s 10.8 informati 2016 6:21 [#/volume on in AM ] in source Blood data Differential panel, method unspecified - Observa Value Referen Units Interpr Notes Date tion ce etation Range LYMPH 10 10 - 50 % Normal No Oct 23 inform2016 tion in 6:21 AM source data Monocytes 2 - 9 % Normal No Oct 23 informati 2016 6:21 leukocyte on in AM s in source Blood by data Automated count Platele NORMAL No No No No Oct 23 ts informa informa informa informa 2016 [Presen tion in tion in tion in tion in 6:21 AM ce] in source source source source Blood data data data data by Light microsc opy Neutrophi 42 - 76 % High No Oct 23 ls informati 2017 6:21 [#/volume on in AM ] in source Blood by data Automated count Cells No #CELLS No No Oct 23 Counted informati informati informati 2017 6:21 Total [#] on in on in on in AM in Blood source source source data data data Comprehensive metabolic 2000 panel in Serum or Plasma Observa Value Referen Units Interpr Notes Date tion ce etation Range Albumin/G 1.1 - 1.8 No Low No Oct 23 lobulin informati informati 2017 6:21 [Mass on in on in AM ratio] in source source Serum or data data Plasma Albumin 3.4 - 5.0 gm/dL Low No Oct 23 [Mass/vol informati 2017 6:21 ume] in on in AM Serum or source Plasma data Alkaline 46 - 116 U/L Normal No Oct 23 phosphata informati 2016 6:21 se on in AM [Enzymati source c data activity/ volume] in Serum or Plasma Bilirubin 0.2 - 1.0 mg/dL Normal No Oct 23 .total informati 2016 6:21 [Mass/vol on in AM ume] in source Serum or data Plasma Urea 7 - 18 mg/dL Low No Oct 23 nitrogen informati 2016 6:21 [Mass/vol on in AM ume] in source Serum or data Plasma Calcium 8.5 - mg/dL Normal No Oct 23 [Mass/vol 10.1 informati 2017 6:21 ume] in on in AM Serum or source Plasma data Chloride 98 - 107 mmoL/L Normal No Oct 23 [Moles/vo informati 2017 6:21 lume] in on in AM Serum or source Plasma data Carbon 21.0 - mmoL/L Normal No Oct 23 dioxide, 32.0 informati 2017 6:21 total on in AM [Moles/vo source lume] in data Serum or Plasma Creatinin 0.55 - mg/dL Normal No Oct 23 e 1.02 informati 2016 6:21 [Mass/vol on in AM ume] in source Serum or data Plasma Creatinin 50 - 200 ML/MIN Normal No Oct 23 e renal informati 2017 6:21 clearance on in AM source predicted data by Cockcroft -Gault formula Estimated 59- ML/MIN No REFERENCE Oct 23 informati RANGE: 2017 6:21 glomerula on in >60 AM r source ML/MIN/1. filtratio data 73 SQUARE n rate METERSIf (GF this patient is -A merican, then multiply theresult by 1.210. Globulin 1.3 - 3.2 gm/dL High No Oct 23 [Mass/vol informati 2016 6:21 ume] in on in AM Serum source data Glucose 74 - 106 mg/dL High No Oct 23 [Mass/vol informati 2016 6:21 ume] in on in AM Serum or source Plasma data Potassium 3.5 - 5.1 mmoL/L Normal No Oct 23 informati 2016 6:21 [Moles/vo on in AM lume] in source Serum or data Plasma Sodium 136 - 145 mmoL/L Normal No Oct 23 [Moles/vo informati 2017 6:21 lume] in on in AM Serum or source Plasma data Aspartate 15 - 37 U/L Normal No Oct 23 informati 2016 6:21 aminotran on in AM sferase source [Enzymati data c activity/ volume] in Serum or Plasma Alanine 12 - 78 U/L Normal No Oct 23 aminotran informati 2016 6:21 sferase on in AM [Enzymati source c data activity/ volume] in Serum or Plasma Protein 6.4 - 8.2 gm/dL Normal No Oct 23 [Mass/vol informati 2016 6:21 ume] in on in AM Serum or source Plasma data Amylase [Enzymatic activity/volume] in Serum or Plasma [...] gm/dL Normal No Oct 22 [Mass/vol informati 2017 ume] in on in 12:22 PM Serum or source Plasma data Alkaline 46 - 116 U/L Normal No Oct 22 phosphata informati 2017 se on in 12:22 PM [Enzymati source c data activity/ volume] in Serum or Plasma Bilirubin 0.2 - 1.0 mg/dL Normal No Oct 22 .total informati 2017 [Mass/vol on in 12:22 PM ume] in source Serum or data Plasma Urea 7 - 18 mg/dL Low No Oct 22 nitrogen informati 2016 [Mass/vol on in 12:22 PM ume] in source Serum or data Plasma Calcium 8.5 - mg/dL Normal No Oct 22 [Mass/vol 10.1 informati 2017 ume] in on in 12:22 PM Serum or source Plasma data Chloride 98 - 107 mmoL/L Normal No Oct 22 [Moles/vo informati 2016 lume] in on in 12:22 PM Serum [...] Normal No Oct 22 e renal informati 2017 clearance on in 12:22 PM source predicted [...] Normal K RESULT Oct 22 MAY BE 2017 [Moles/vo SLIGHTLY 12:22 PM lume] in ELEVATED [...] 78 U/L Normal No Oct 22 aminotran informati 2017 sferase on in 12:22 PM [Enzymati source c data activity/ volume] in Serum or Plasma Protein 6.4 - 8.2 gm/dL High No Oct 22 [Mass/vol 2016 ume] in on in 12:22 PM Serum or source Plasma data Lipase [Enzymatic activity/volume] in Serum or Plasma Observa Value Referen Units Interpr Notes Date tion ce etation Range Lipase 73 - 393 U/L Normal No Oct 22 [Enzymati ati 2017 c on in 12:22 PM activity/ source volume] data in Serum or Plasma CBC W Auto Differential panel in Blood Observa Value Referen Units Interpr Notes Date tion ce etation Range Granulocy 1.8 - 7.8 K/mm3 Normal No Oct 22 isaac 2016 [#/volume [...] 0.1 - 1.0 K/mm3 Normal No Oct 10 informati 2016 [#/volume on in 12:22 PM ] in source Blood by data Automated count Monocytes 1.7 - 9.3 % Normal No Oct 10 /100 informati 2016 leukocyte on in 12:22 PM s in source Blood by data Automated count Platelets 142 - 424 K/mm3 Normal No Oct 10 informati 2016 [#/volume on in 12:22 PM ] in source Blood data Erythrocy 4.2 - 5.4 M/mm3 Normal No Oct 10 isaac informati 2016 [#/volume on in 12:22 PM ] in source Amniotic data fluid Erythrocy 11.5 - % Normal No Oct 22 te 17.5 informati 2016 distribut on in 12:22 PM ion width source [Entitic data volume] by Automated count Leukocyte 4.8 - K/mm3 Normal No Oct 22 s 10.8 informati 2016 [#/volume on in 12:22 PM ] [...] 116 U/L Normal No Oct 20 phosphata ati 2016 se on in 11:15 AM [Enzymati [...] No Oct 20 adotropin informati informati informati 2017 on in on in on in 11:15 AM [Units/vo source source source lume] in data data data Serum or Plasma CBC W Auto Differential panel in Blood Observa Value Referen Units Interpr Notes Date tion ce etation Range Basophils 0 - 0.2 K/MM3 Normal No Oct 20 informati 2016 [#/volume [...] % Normal No Oct 20 ls/100 12.0 inform2016 leukocyte on in 11:15 AM s [...] g/dL High No Oct 20 n 16.2 2016 [Mass/vol on in 11:15 AM ume] in source Blood data Lymphocyt 0.7 - 4.5 K/mm3 Normal No Oct 20 es 2016 [#/volume on in 11:15 AM ] in source Unspecifi data ed specimen by Automated count Lymphocyt 10 - 50.0 % Normal No Oct 20 es 2016 [#/volume on in 11:15 AM ] [...] Normal No Oct 20 te mean 97.8 2016 corpuscul on in 11:15 AM ar [...] 5.4 M/mm3 Normal No Oct 20 isaac inform2016 [#/volume on in 11:15 AM ] in source Amniotic data fluid Erythrocy 11.5 - % Normal No Oct 20 te 17.5 2016 distribut on in 11:15 AM ion width source [Entitic data volume] by Automated count Leukocyte 4.8 - K/MM3 Normal No Oct 20 s 10.8 2016 [#/volume on in 11:15 AM ] [...] Sep 11 nce of informa informa informa 2016 Urine tion in tion in tion in 9:30 AM source source source data data data Bacteri 3+ O No No No Sep 11 a informa informa informa 2016 [Presen tion in tion in tion in 9:30 AM ce] in source source source Urine data data data sedimen t by Light microsc opy Bilirub NEGATIV NEG No No No Sep 11 in E informa informa informa 2016 [Presen tion [...] Sep 11 in E informa informa informa 2016 [Presen tion [...] No Sep 11 E informa informa informa 2017 [Presen tion [...] No No Sep 11 nogen informa informa 2017 [Presen tion in tion [...] mg/dL Normal No Aug 31 .total informati 2017 4:21 [Mass/vol on in PM ume] in source Serum or data Plasma Urea 7 - 18 mg/dL Normal No Aug 31 nitrogen informati 2017 4:21 [Mass/vol on in PM ume] in source Serum or data Plasma Calcium 8.5 - mg/dL Normal No Aug 31 [Mass/vol 10.1 informati 2017 4:21 ume] in on in PM Serum [...] ng/dL Normal No Aug 31 (T4) 1.46 informati 2016 4:21 free on in PM [Mass/vol [...] - 0.2 K/MM3 Normal No Aug 31 informati 2016 4:21 [...] Normal No Aug 31 ls/100 12.0 informati 2017 4:21 leukocyte on in PM s in source Blood by data Automated count Granulocy 1.8 - 7.8 K/mm3 High No Aug 31 isaac informati 2017 4:21 [...] No Aug 31 te mean 35.4 informati 2017 4:21 corpuscul on in PM [...] mg/dL Normal No Aug 28 .total informati 2016 2:45 [Mass/vol on in PM ume] in source Serum or data Plasma Urea 7 - 18 mg/dL Normal No Aug 28 nitrogen informati 2016 2:45 [Mass/vol on in PM ume] in source Serum or data Plasma Calcium 8.5 - mg/dL Normal No Aug 28 [Mass/vol 10.1 informati 2016 2:45 ume] in on in PM Serum or source Plasma data Chloride 98 - 107 mmoL/L Normal No Aug 28 [Moles/vo informati 2016 2:45 lume] in on in PM Serum or source Plasma data Carbon 21.0 - mmoL/L Normal No Aug 28 dioxide, 32.0 informati 2017 2:45 total on in PM [Moles/vo source [...] 3.5 - 5.1 mmoL/L Normal No Aug 16 informati 2016 2:45 [Moles/vo on in PM lume] in source Serum or data Plasma Sodium 136 - 145 mmoL/L Normal No Aug 28 [Moles/vo inform2016 2:45 lume] in on in PM Serum or source Plasma data Aspartate 15 - 37 U/L Low No Aug 28 inform2016 2:45 aminotran on in PM sferase source [Enzymati data c activity/ volume] in Serum or Plasma Alanine 12 - 78 U/L Normal No Aug 28 aminotran 2016 2:45 sferase on in PM [Enzymati [...] 73 - 393 U/L Low No Aug 28 [Enzymati informati 2016 2:45 c on in PM activity/ source volume] data in Serum or Plasma CBC W Auto Differential panel in Blood Observa Value Referen Units Interpr Notes Date tion ce etation Range Basophils 0 - 0.2 K/MM3 Normal No Aug 282016 2:45 [#/volume on in PM ] in source Blood by data Automated count Basophils 0.1 - 2.0 % Normal No Aug 28 /100 inform2016 2:45 leukocyte on in PM s in source Blood by data Automated count Eosinophi 0.0 - 0.4 K/mm3 Normal No Aug 28 ls 2016 2:45 [#/volume on in PM ] in source Blood by data Automated count Eosinophi 0.1 - % Normal No Aug 28 ls/100 12.0 informati 2016 2:45 leukocyte on in PM s in source Blood by data Automated count Granulocy 1.8 - 7.8 K/mm3 Normal No Aug 28 isaac informati 2016 2:45 [#/volume on in PM ] in source Blood by data Automated count Granulocy 37.0 - % Normal No Aug 28 isaac/100 80.0 informati 2016 2:45 leukocyte on in PM s in source Blood by data Automated count Hematocri 37.0 - % Normal No Aug 28 t [Volume 47.0 informati 2016 2:45 on in PM Fraction] source of Blood data Hemoglobi 12.2 - g/dL Normal No Aug 28 n 16.2 informati 2017 2:45 [Mass/vol on in PM ume] in source Blood data Lymphocyt 0.7 - 4.5 K/mm3 Normal No Aug 16 es inform2016 2:45 [...] Normal No Aug 16 mean 10.4 informati 2017 2:45 volume on in PM [Entitic source volume] data in Blood by Automated count Platelets 142 - 424 K/mm3 Normal No Aug 16 informati 2016 2:45 [#/volume on in PM ] in source Blood data Erythrocy 4.2 - 5.4 M/mm3 Normal No Aug 16 isaac informati 2017 2:45 [#/volume on in PM ] in source Amniotic data fluid Erythrocy 11.5 - % Normal No Aug 16 te 17.5 informati 2016 2:45 distribut on in PM ion width source [Entitic data volume] by Automated count Leukocyte 4.8 - K/MM3 Normal No Micah 16 s 10.8 informati 2016 2:45 [#/volume on in PM ] in source Blood data Urinalysis macro (dipstick) panel in Urine Observa Value Referen Units Interpr Notes Date tion ce etation Range Appeara Sl CLEAR No No No Aug 16 nce of Cloudy informa informa informa 2017 Urine tion in tion in tion in 2:21 PM source source source data data data Bilirub 1+ NEG No Abnorma BILIRUB Aug 16 in informa l IN 2017 [Presen tion in CONFIRM 2:21 PM ce] in source ED WITH Urine data by Test ICTOTES strip T Erythro TRACE NEG No Abnorma No Aug 16 cytes informa l informa 2016 [Presen tion in tion in [...] Leukocy TRACE NEG No Abnorma No Aug 16 te informa l informa 2017 esteras tion [...] Range COLLECT JH No No No No Apr 9 OR informa informa informa informa 2012 [...] source AM data data data data CHART [id number] No No No No Jun 9 NUMBER informa informa informa informa 2012 tion in tion in tion in tion in 10:50 source source source source AM data data data data Reagin NON-JETT No No No METHOD Jun 21 [address] CTIVE informa informa informa OF 2011 [Presen tion in tion in tion [...] source AM data data data data CHART [id number] No No No No Jun 21 NUMBER informa informa informa informa 2012 tion in tion in tion in tion in 10:50 source source source source AM data data data data Reagin Pending No No No \.br\Jun 21 Ab informa informa informa is 2012 [Presen tion in tion in tion in report 10:50 ce] in source source source contain AM Unspeci data data data s fied patient specime n by informa VDRL tion that must be protect ed in accorda nce with the Health Ins[employer] ce P[employer]i lity and Account ability Act.
--- OUTSIDE RECORDS SUMMARY | 2016-10-27 05:47 | External Medical Summary Rpt ---
[...] - 5.4 M/mm3 Normal No Oct 20 isaca inform2016 [#/volume on in 11:15 AM ] [...] source AM data data data data CHART [id number] No No No No Jun 9 NUMBER [...] source AM data data data data CHART [id number] No No No No Jun 21 NUMBER [...]
[2016-10-27 05:55] LABS: LYMPH # 2.1 K/mm3 (0.7-4.5); LYMPH % 16.4 % (10-50.0)
[2016-10-27 06:00] LABS: URINE BILIRUBIN - DIPSTICK NEGATIVE (NEG); URINE BLOOD 1+ (NEG)
--- NOTE | 2016-10-27 06:40 | Emergency Room Report ---
History of Present Illness Time Seen by [id number] Presenting Problem in Triage Pt arrived:Walked Presenting Problem:C/O ABDOMINAL PAIN AND VOMITING. HAD CHOLECYSTECTOMY ON AND WHEN DISCHARGED DR STEPHENS STATED SHE HAD INFECTION AROUND GALL BLADDER BUT WAS MOT SENT HOME WITH ANTIBIOTICS. 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 N Clinical Suspician of Infection? Y Mental Status: 1 - Regular (Normal Baseline) Sepsis Risk:Low Sepsis Risk Have you (or family members/close friends) recently traveled outside the [place]? N If Yes, where/when: Have you had exposure to infectious disease within the past month? N TB? Other? Specify: Source patient, RN notes reviewed, family, old records Exam Limitations no limitations Comment pt with recent gb surg and presents this am with nausea and vomiting and rt abd upper pain - no fever Cardiac Chest Pain Chest pain indicative of cardiac No Timing/Duration this morning Severity moderate ALLERGIES Coded Allergies: Penicillins (10/22/16) Home Medications Active Scripts Ondansetron (Zofran 4MG Odt) 4 MG PO Q6HP PRN NAUSEA AND VOMITING #20 TAB Prov: 08/25/16 Hydroxyzine Pamoate (Vistaril 25MG CAP) 25 MG PO Q6HP PRN vomiting #10 CAP Prov: 09/11/16 PROMETHAZINE HCL (Promethazine 25mg Tab) 25 MG PO Q6HP PRN NAUSEA AND VOMITING #12 TAB Prov: 08/22/16 HYDROCODONE/ACETAMINOPHEN (Harwood 5-325 Tablet) 1-2 TAB PO Q6HP PRN pain #23 TAB Prov: 10/23/16 Reported Medications CLONIDINE HCL (Clonidine 0.1MG) 0.1 MG PO NIGHTLY #30 Meloxicam (Meloxicam 7.5MG) 7.5 MG PO DAILY #30 Sertraline Hcl (Sertraline 50MG) 25 MG PO DAILY #45 History Medical History General CAD? No Angina: No IA: No Hypertension? No Hyperlipidemia? No CHF? No DVT? No PE? No COPD? No Asthma? No Anemia? No GERD? No Gastric ulcers? No GI Bleed? No Hernia? No Thyroid Problems? No Hypothyroidism? No CVA? No Seizures? No Diabetes? No Renal Insuffiency? No End Stage Renal Disease? No UTI? No Stones? No BPH? No GB Disease: Yes Nephritic Syndrome? No Asplenia? No Hepatitis? No Sickle Cell Disease? No Arthritis? No Migraines? No Cataracts? No Glaucoma? No MRSA? Yes HIV? No TB? No Anxiety? No Depression? Yes Cancer? Yes Site: CERVICAL More? No Immunization Hx DT/Tetanus 5-10 Years Ago Flu 2016-17FSN Pneumonia Refuses Surgical Hx Previous Surgery?Y CYROTHERAPY/ABD. 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 Respiratory denies cough, denies shortness of breath, denies wheezing Cardiovascular denies chest pain, denies palpitations, denies syncope Gastrointestinal see HPI, abdominal pain, nausea, vomiting Genitourinary denies: dysuria, frequency, hesitancy, hematuria. Musculoskeletal denies back pain, denies joint pain, denies joint swelling, denies neck pain Skin denies rash Psychiatric/Neurological denies headache, denies seizure Physical Exam Vital Signs Vital Signs Date Time Temp Pulse Resp B/P Pulse O2 O2 Flow FiO2 Ox Delivery Rate 10/27 0702 20 10/27 0621 97.2 74 20 135/79 99 10/27 0513 97.2 64 20 140/81 96 - WBC >12,000 or <4,000 or 10% bands? 2 or more SIRS Criteria Met? B/P:135/79 MAP:100 Creatinine >2.0? UA output<0.5ml/kg/hr for 2 hrs? Platelet count >100,000? Lactate >2.0mmol/1? INR >1.2 or PTT > than 60 sec? Evidence of Organ Dysfunction? Provider documented clinical suspician of infection? Y Sepsis Criteria Count: 1 Sepsis Risk: Low Sepsis Risk General Appearance no apparent distress Eye Exam - bilateral eye PERRL, bilateral eye EOMI Ear, Nose, Throat normal ENT inspection Neck supple Respiratory Status No: respiratory distress. Cardiovascular regular rate/rhythm, no murmur Peripheral Pulses Pulses normal Yes Gastrointestinal soft, no organomegaly, no pulsatile mass, no guarding, no rebound, tenderness, surg sites intact - sl bruising Extremities normal inspection Strength 4 Upper Ext (L), 4 Upper Ext (R), 4 Lower Ext (L), 4 Lower Ext (R) Neurologic alert, manager of investigations II-XII nml as tested, no motor/sensory deficits Reflexes Reflexes normal No Mental status normal mood/affect Skin surg sites noted Medical Decision Making LABS/Meds/Orders Pt receiving controlled substance in ED? No Results/Orders Laboratory Tests 10/27/16 0525: Lactic Acid 0.8 10/27/16 0525: Sodium 139, Potassium 3.9, Chloride 104, Carbon Dioxide 26, BUN 8, Creatinine 0.5 L, Estimated Creat Clear 164, Estimated GFR (MDRD) 138, Glucose 121 H, Calcium 8.7, Total Bilirubin 0.7, AST 26, ALT 38, Alkaline Phosphatase 72, Total Protein 6.9, Albumin 3.5, Globulin 3.4 H, Albumin/Globulin Ratio 1.0 L, Amylase 31, Lipase 96, WBC 13.0 H, RBC 4.95, Hgb 15.0, Hct 45.8, MCV 92.7, RDW 12.7, Plt Count 278, MPV 7.8, Gran % 75.1, Gran # 9.7 H, Lymphocytes % 16.4, Monocytes % 4.1, Eosinophils % 4.1, Basophils % 0.4, Lymphocytes # 2.1, Monocytes # 0.5, Eosinophils # 0.5 H, Basophils # 0.1, PUBS MCHC 32.7, MCH 30.3 , Urine Color YELLOW, Urine Appearance CLEAR, Urine pH 8.0, Ur Specific [place] 1.015, Urine Protein TRACE H, Urine Ketones NEGATIVE, Urine Blood 1+ H, Urine Nitrate NEGATIVE, Urine Bilirubin NEGATIVE, Urine Urobilinogen 1.0, Ur Leukocyte Esterase NEGATIVE, Urine RBC 3-5, Urine WBC 3-5, Ur Squamous Epith Cells 5-10, Amorphous Sediment 1+, Urine Bacteria 1+, Urine Glucose NEGATIVE Current Medication Orders Sig/Gabby Start time Last Medication Dose Route Stop Time Status Admin Famotidine 20 MG ONCE ONE 08/15 0730 DC IV 10/27 0731 Metoclopramide HCl 10 MG ONCE ONE 10/27 0730 DC IVP 10/27 0731 Sodium Chloride 8 ML ONCE ONE 10/27 0730 DC IV 10/27 0731 Morphine Sulfate 4 MG ONCE ONE 10/27 0700 DC 10/27 IV 10/27 0701 0702 Promethazine HCl 12.5 MG ONCE ONE 10/27 0700 DC 10/27 IV 10/27 0701 0701 Sodium Chloride 25 ML ONCE ONE 10/27 0700 DC 10/27 IV 10/27 0714 0702 Promethazine HCl 0 .STK-MED ONE 10/27 0659 DC .ROUTE Sodium Chloride 25 ML .STK-MED ONE 10/27 0659 DC IV Morphine Sulfate 0 .STK-MED ONE 10/27 0658 DC .ROUTE Ondansetron HCl 0 .STK-MED ONE 10/27 0528 DC .ROUTE Sodium Chloride 1,000 ML .STK-MED ONE 10/27 0528 DC IV Ondansetron HCl 4 MG ONCE ONE 10/27 0515 DC 10/27 IV 10/27 0516 0530 Sodium Chloride 10 ML PRN PRN 10/27 0515 AC IV 10/28 0508 Sodium Chloride 1,000 ML .Q1H1M 10/27 0515 DC 10/27 IV 10/27 0615 0530 Sodium Chloride 10 ML PRN PRN 10/27 0515 AC IV 10/28 0509 Orders Procedure Date/time Status DIET-NOTHING BY MOUTH 10/[address] ABD & PELVIS W/O CONTRAST 10/[address] ABD/PELVIS REQ 10/27 0526 Complete CULTURE, BLOOD 10/27 0521 Active LACTIC ACID 10/27 0521 Complete IV SALINE LOCK 10/27 0509 Active URINALYSIS/COMPLETE 10/27 0509 Complete LIPASE 10/27 0509 Complete CBC WITH AUTO DIFF 10/27 0509 Complete CHEM 12 PROFILE 10/27 0509 Complete AMYLASE 10/27 0509 Complete XRAY/CT/US XRAY/CT/US CT abdomen, pelvis CT interpretation by discussed w/radiologist Time results known: 0642 CT Results abnormal (see report) Departure Departure Time of Disposition 0643 Disposition DC Home or Self Care(routine) Clinical Impression Primary Impression: Postoperative nausea and vomiting Condition STABLE Referrals [place] (Family) discussed with dr jarquin Patient Instructions DI for Vomiting -- Adult Additional Instructions fluids and see dr jarquin on wednesday afternoon Discharge Counseling Counseled pt/family regarding diagnosis, test results, medications/RX, follow up needs Prescriptions Current Visit Scripts PROMETHAZINE HCL (Phenergan 25MG Tab (Geq)) 25 MG PO Q6HP PRN N/V #14 TAB ED Critical Care [place] 0734
[2016-10-27] MEDS ORDERED: PHENERGAN25 M3 PO (07:34)
[2016-10-27 08:31] VITALS: BP 118/89
--- NOTE | 2016-10-27 08:48 | RADIOLOGY REPORT PS360 ---
CT ABD PELVIS W/O CONTRAST CLINICAL INDICATION: Mid abdominal pain. Status post recent cholecystectomy with mid abdominal pain C/O ABD PAIN ORDERING PHYSICIAN: Neal Alonzo MD PATIENT AGE: 36 years COMPARISON: None TECHNIQUE: Axial images obtained with sagittal and coronal reformats. PROCEDURE: Oral Contrast: None IV Contrast: None . FINDINGS: Lower chest: Unremarkable. Unremarkable liver, spleen, adrenal glands, and pancreas. There are postcholecystectomy changes with minimal stranding of the fat in the gallbladder fossa. No definite abscess or biloma within the gallbladder fossa. Postsurgical changes are present involving the anterior abdominal wall superiorly and centrally. There is mild thickening of the descending portion of the duodenum. No intestinal obstruction. Minimal stranding of the right anterior pararenal fascia. No hydronephrosis. Punctate right renal calculi. No ureteral calculi. Moderate amount retained colonic feces. Small amount fluid is present in the pelvis. Right adnexa somewhat prominent with indistinct and may be better evaluated with ultrasound. No evidence of appendicitis or diverticulitis. IMPRESSION: 1. Postsurgical changes of the anterior abdominal wall and gallbladder fossa. 2. Thickening of the descending portion of the duodenum suggesting duodenitis.
[2016-10-28] MEDS ORDERED: PROTONIX 40MG T40 MG PO (09:29)
== END 2016-10-27 08:32 | disposition home or self-care (01) ==
LOC: ER 05:03
PROVIDERS: Emergency Medicine
DX: K91.0 Vomiting following gastrointestinal surgery (principal); Z79.899 Other long term (current) drug therapy; Z72.0 Tobacco use
CPT/HCPCS: J2405

== ENCOUNTER 2017-01-03 10:15 | Emergency (ER) | payer MEDICAID ==
[~2017-01-03] VITALS: Ht 160 cm; Wt 68.9 kg
[~2017-01-03 10:15] MED LIST changes: +PHENERGAN25 M3 PO; +PROTONIX 40MG T40 MG PO; +REGLAN10 M2 PO; +ZOFRAN4 MG PO
--- OUTSIDE RECORDS SUMMARY | 2017-01-03 11:05 | External Medical Summary Rpt | CCD ---
Author Author , BRAYDEN Organization BRAYDEN Address Unknown Phone [email or web address] Care Team Providers Care Cover Stripper Name Role Phone ESCALANTE, ESCALANTE Unavailable Unavailable [facility] Unavailable Unavailable SERVICE, [facility] Unavailable Unavailable SERVICE, [facility] MORENO MAYER Unavailable Unavailable [facility] Un[facility] Unavailable [facility] ARMIDA, ARMIDA Unavailable Unavailable FRYMAN, FRYMAN Unavailable Unavailable BARRIE, BARRIE Unavailable Unavailable JAZMYNE, JAZMYNE Unavailable Unavailable [facility] Un[facility], [facility], Unavailable Unavailable [facility] THOMAS, THOMAS Unavailable Unavailable [facility], [facility], Unavailable Unavailable PLL[facility], [facility] GLENN, GLENN Unavailable Unavailable SOTINGEANU, Unavailable Unavailable SOTINGEATRACEY MCKEON Unavailable Unavailable ALESHIA MONK JR, JR Unavailable Unavailable Purpose Continuity of Care Document - 06-22-2011 through 2016 Problems Code Diagnosis DOS Provider Status R109 UNSPECIFIED 11-23-2016 [facility] PAIN [facility] R112 NAUSEA WITH 11-23-2016 [facility] UNSPECIFIED INC R1011 RIGHT UPPER 11-16-2016 [facility] R1110 VOMITING 11-16-2016 [place] [facility] Z720 TOBACCO USE 11-16-2016 [facility] INC Z9049 ACQUIRED 11-16-2016 [place] [facility]ICAL SPEC PARTS [facility]ING ASS DIGESTIVE TRACT K2980 DUODENITIS 10-28-2016 [facility] WITHOUT [facility] BLEEDING PLLC K8050 CALCULUS BD 10-28-2016 [facility] W/O PHYSICIANS, CHOLANGITIS PLLC /CHOLECYST W/O OBST K9186 RETAINED 10-28-2016 [facility] SIS INC FOLLOWING CHOLECT [id number] OTH SPEC 10-28-2016 [facility] NEC INIT ENC K910 VOMITING 10-27-2016 [facility] GASTROINTES INC TINAL SURGERY M14946 OTHER LONG 10-27-2016 [facility] CURRENT INC DRUG THERAPY K8012 CALCULUS GB 10-22-2016 [facility] W/ACUTE & PHYSICIANS CHRON GROUP CHOLECYST W/O OBST K8020 CALCULUS GB 10-22-2016 [place] W/O MEDICAL CHOLECYSTIT IMAGING ASS IS W/O OBSTRUCTION K8081 OTHER 10-22-2016 [facility] SIS WITH PLLC OBSTRUCTION K819 CHOLECYSTIT 10-22-2016 [facility] UNSPECIFIED THE [facility] K8000 CALCULUS GB 10-20-2016 [facility] W/ACUTE [facility] CHOLECYST INC W/O OBSTRUCTION C08298 ENCOUNTER 10-20-2016 [facility] PREPROCEDUR INC AL LABORATORY EXAM K8010 CALCULUS GB 10-13-2016 [facility] W/CHRONIC PHYSICIANS CHOLECYST GROUP W/O OBSTRUCTION R1111 VOMITING 09-11-2016 [facility] NAUSEA INC J0100 ACUTE 09-10-2016 [facility] MAXILLARY PHYSICIANS SINUSITIS GROUP UNSPECIFIED R05 COUGH 08-31-2016 [facility] R631 POLYDIPSIA 08-31-2016 [facility] Medications Na ND Rx Da Fi Fi Am Da Di Ph RX Ph St me C No te ll ll ou ys ag ar # ys at rm s nt no ma ic us Or Da si cy ia de te s n re d ME 00 09 10 21 7 00 HO Ac TO 09 -0 -0 .0 00 ME ti CL 32 5- 6- 00 06 TO ve OP 20 20 20 09 WN RA 30 17 17 36 MS 5 26 PH DE AR MA 10 CY MG OF TA CY BL NT ET HI AN A ME 68 09 10 14 4 00 HO Ac OM 00 -0 -0 .0 00 ME ti ET 10 5- 6- 00 06 TO ve BOND 16 20 20 09 WN ZI 20 17 17 36 NE 8 25 PH AR 25 MA CY MG OF TA BL CY ET NT HI AN A ON 00 09 10 20 5 00 HO Ac DA 37 -0 -0 .0 00 ME ti NS 87 5- 6- 00 06 TO ve ET 73 20 20 09 WN RO 29 17 17 36 N 3 24 PH OD AR T MA 4 CY MG OF TA BL CY ET NT HI AN A KE 00 08 09 16 4 00 HO Ac TO 09 -2 -2 .0 00 ME ti RO 30 3- 2- 00 06 TO ve LA 31 20 20 09 WN C 40 17 17 29 10 1 83 PH AR MG MA CY TA BL OF ET CY NT HI AN A SE 65 08 09 45 30 00 HO Ac RT 86 -0 -0 .0 00 ME ti RA 20 7- 1- 00 06 TO ve LI 01 20 20 08 WN NE 20 17 17 95 5 26 PH HC AR L MA 50 CY MG OF TA CY BL NT ET HI AN A CL 68 08 09 30 30 00 HO Ac ON 00 -0 -0 .0 00 ME ti ID 10 7- 1- 00 06 TO ve IN 23 20 20 08 WN E 70 17 17 95 HC 3 24 PH L AR 0. MA 1 CY MG OF TA BL CY ET NT HI AN A ME 68 08 09 30 30 00 HO Ac LO 38 -0 -0 .0 00 ME ti XI 20 7- 1- 00 06 TO ve CA 05 20 20 08 WN M 00 17 17 95 7. 5 25 PH 5 AR MG MA CY TA BL OF ET CY NT HI AN A HY 00 08 09 [address] 60 -1 -0 .0 00 ME ti OC 33 1- 1- 00 02 TO ve OD 89 20 20 01 WN ON 03 17 17 43 -A 2 66 PH CE AR TA MA MS CY NO PH OF EN CY 5- NT 32 HI 5 AN A ON 68 08 09 20 20 00 HO Ac DA 46 -0 -0 .0 00 ME ti NS 20 9- 1- 00 06 TO ve ET 15 20 20 09 WN RO 81 17 17 21 N 3 52 PH OD AR T MA 8 CY MG OF TA BL CY ET NT HI AN A CE 68 06 07 20 10 00 [...] 10 3- 7- 00 06 TO ve ME 00 20 20 08 WN ED 50 [...] ET NT HI AN A ME 68 06 07 12 3 00 WA [...] ET NT HI AN A SE 65 04 05 45 30 00 HO Ac RT 86 -1 -1 .0 00 ME ti RA 20 8- 2- 00 06 TO ve LI 01 20 20 08 WN NE 20 17 17 36 5 50 PH HC AR L MA 50 CY MG OF TA CY BL NT ET HI AN A HY 45 03 04 [...] Order Detail nces retati t Range on Ca-I SerPl ISE-sCnc (10-28-2016 16:38) Ca-I TCON 4.6-5.1 complet SerPl 017 Multipl ed ISE-sCn 16:38 e SCM c orders. Tests consoli dated. L mg/dL Ca-I Bld-mCnc (10-28-2016 16:38) Ca-I 4.5 4.6-5.1 complet Bld-mCn 017 mg/dL ed c 16:38 Lactate Bld-sCnc (10-28-2016 16:38) Lactate 0.8 complet 017 mmol/L ed Bld-sCn 16:38 c Comment: normal range normal range normal range Differential panel, method unspecified - (10-28-2016 09:05) LYMPH 9 % 10% - Low complet 017 50% ed 09:05 Platele NORMAL complet ts 017 ed [Presen 09:05 ce] in Blood by Light microsc opy Urinalysis dipstick W Reflex Microscopic panel in Urine (10-27-2016 05:25) Amorpho 1+ NONE complet us 017 ed sedimen 05:25 t [Presen ce] in Urine sedimen t by Light microsc opy Bacteri 1+ O complet a 017 ed [Presen 05:25 ce] in Urine sedimen t by Light microsc opy Erythro --2 3-5 0 complet cytes 017 ed [Presen 05:25 ce] in Urine sedimen t by Light microsc opy Epithel 10-27- 5-10 0#/hp complet ial 017 f - ed cells.s 05:25 5#/hp quamous f [Presen ce] in Urine sedimen t by Microsc opy high power field Leukocy 10-27- 3-5 O complet isaac 017 wbc/hpf ed [#/volu 05:25 me] in Urine Urinalysis dipstick W Reflex Microscopic panel in Urine (10-27-2016 05:25) Appeara CLEAR CLEAR complet nce of 017 ed Urine 05:25 Bilirub NEGATIV NEG complet in 017 E ed [Presen 05:25 ce] in Urine by Test strip Erythro 1+ NEG Abnorma complet cytes 017 l ed [Presen 05:25 ce] in Urine Color YELLOW YELLOW complet of 017 ed Urine 05:25 Ketones NEGATIV NEG complet 017 E ed [Presen 05:25 ce] in Urine by Automat ed test strip Mucus NEGATIV NEG complet [Presen 017 E ed ce] in 05:25 Urine sedimen t by Light microsc opy Nitrite NEGATIV NEG complet 017 E ed [Presen 05:25 ce] in Urine by Test strip Urobili 1.0 NEG complet nogen 017 ed [Presen 05:25 ce] in Urine by Test strip Differential panel, method unspecified - (10-23-2016 06:21) [...] complet of 017 ed Urine 14:21 Ketones 16-2 NEGATIV NEG complet 017 E ed [Presen 14:21 ce] in Urine by Automat ed test strip Leukocy 16-2 TRACE NEG Abnorma complet te 017 l ed esteras 14:21 e [Presen ce] in Urine by Automat ed test strip Nitrite -16-2 NEGATIV NEG complet 017 E ed [Presen 14:21 ce] in Urine by Test strip Urobili 16-2 2.0 NEG complet nogen 017 ed [Presen 14:21 ce] in Urine by Test strip Urine test by rapid immunoassa (08-28-2016 14:17) Urine -16-2 NEGATIV NEG complet pregnan 017 E ed [...] complet N 012 ed SOURCE 10:50 CHART [id number] complet NUMBER 012 ed 10:50 Reagin Pending complet Ab 012 ed [Presen 10:50 ce] in Unspeci fied specime n by VDRL Procedures Procedure DOS Code Location Performer Comment RADEX 72964 [facility] ABDOMEN 1 7 [facility] [place] [address] [place] ESCALANTE TRACT UPR 7 MEDICAL W/SM INT [place] [address] [facility] AMYLASE [address] [place] [address] [place] ESC[facility] ABDOMEN & 7 MEDICAL PELVIS IMAGING W/[place] [address] [facility] LIPASE 7 [facility] INC INC URNLS DIP 73757 [facility] 7 [facility] STICK/TAB INC INC LET REAGENT AUTO MICROSCOP Y BLOOD 05825 [facility] COUNT 7 [facility] COMPLETE INC INC AUTO&[place] [address] [facility] INFUSION 7 [facility] THERAPY/P INC INC ROPHYLAXI S /DX 1ST TO 1 HR THERAPEUT 05935 [facility] IC 7 [facility] INJECTION INC INC IV PUSH EACH NEW DRUG COLLECTIO 99299 [facility] N VENOUS 7 [facility] BLOOD INC INC VENIPUNCT URE COMPREHEN 52796 [facility] SIVE 7 [facility] METABOLIC INC INC PANEL URINE 29361 [facility] CISNER[facility] 7 [facility] TEST INC INC VISUAL COLOR CMPRSN METHS CULTURE 25422 [facility] BACTERIAL 7 [facility] INC [place] [address] UNIVERSIT JAZMYNE ABDOMINAL 7 Y OF REAL [place] W/[place] [address] [facility] BASILIOON INFUSION 7 [facility] THERAPY/P INC INC ROPHYLAXI S /DX 1ST TO 1 HR THERAPEUT 56801 [facility] C[facility] IC 7 [facility] INJECTION INC [place] [address] [facility] AMYLASE 7 MEM H[facility] [place] [address] [facility] LIPASE 7 [facility] INC INC BLOOD 57618 [facility] COUNT 7 [facility] COMPLETE INC INC AUTO&AUTO DIFRNTL WBC CRITICAL 73435 [facility] 7 PHYSICIAN U ILL/INJUR S, PLLC ED PATIENT INIT 30-74 [place] [address] [facility] INFUSION 7 [facility] THERAPY INC INC PROPHYLAX IS/DX EA HOUR GROUND A0425 [facility] AMBULANCE PER SERVICE SERVICE STATUTE MILE COMPREHEN 59471 [facility] SIVE 7 [facility] METABOLIC INC INC PANEL COMPREHEN 41302 AM[facility]IA [facility] SIVE 7 [facility] [place] [address] AMELIA [facility] INFUSION 7 [facility] THERAPY INC INC PROPHYLAX IS/DX EA HOUR BLOOD 98590 AM[facility]IA [facility]IA COUNT 7 MEM [facility]OS[facility] COMPLETE INC INC AUTO&[place] [address] [facility] BASILIOON INFUSION 7 [facility] THERAPY/P INC INC ROPHYLAXI S /DX 1ST TO 1 HR THERAPEUT 84181 [facility] C[facility] IC 7 [facility] INJECTION INC INC IV PUSH EACH NEW DRUG URNLS DIP 85515 [facility] CISNEROS 7 [facility] STICK/TAB INC INC LET REAGENT AUTO MICROSCOP Y CULTURE 94711 [facility] BACTERIAL 7 [facility] BLOOD INC INC AEROBIC W/[place] [address] [facility] C[facility] AMYLASE 7 [facility] [place] [address] [facility] LACTATE [address] [place] [address] AM[facility] C[facility] ABDOMEN & 7 [facility] PELVIS INC [place] W/[place] [address] [facility] LIPASE 7 [place] [address] [place] ESCALANTE ABDOMINAL 7 MEDICAL REAL IMAGING TIME ASS W/IMAGE LIMITED ANES 94021 [facility] INTRAPERI 7 ANESTH TONEAL OF THE UPPER BLUE ABDOMEN W/LAPS NOS LAPAROSCO 58949 [facility] PY SURG 7 PHYSICIAN CHOLECYST S GROUP [place]CTOMY LEVEL III 26174 [facility] SURG 7 CORAL & PATHOLOGY DUBILIER GROSS&MALINI ROSCOPIC EXAM COMPREHEN 64702 [facility] SIVE 7 [facility] METABOLIC INC INC PANEL COLLECTIO 61706 [facility] N VENOUS 7 [facility] BLOOD INC INC VENIPUNCT URE BLOOD 62506 [facility] COUNT 7 [facility] COMPLETE INC INC AUTO&AUTO DIFRNTL WBC GONADOTRO 58084 [facility] PIN 7 MEM H[facility] [place] [address] [facility] BASILIOON ABDOMINAL 7 [facility] REAL INC INC TIME W/IMAGE LIMITED URNLS DIP 26504 [facility] CISNEROS 7 [facility] STICK/TAB INC INC LET REAGENT AUTO MICROSCOP Y CULTURE 93801 [facility] BACTERIAL 7 MEM H[facility]OS[facility] INC INC QUANTTATI VE COLONY COUNT URINE URINE 40419 AM[facility] AMELIA 7 [facility] H[facility] TEST INC INC VISUAL COLOR CMPRSN METHS GENERAL 78201 [facility] CISNER[facility] HEALTH 7 MEM H[facility]OS[facility] PANEL INC INC HEMOGLOBI 01012 [facility] CISNER[facility] N 7 MEM H[facility] GLYCOSYLA INC INC OANH A1C RADIOLOGI 83396 [facility] C EXAM 7 MEDICAL CHEST 2 IMAGING VIEWS ASS [place]ONTAL&[place] [address] [facility] CISNEROS FREE 7 [facility] THYROXINE INC INC Encounters Encounter Start End Date Code Location Performer Type Date HOSPITAL AM[facility]IA Ignacio 7 [facility] OUTPATIEN INC T EMERGENCY 13272 [facility] SO[facility] DEPT 7 7 PHYSICIAN VISIT S, PLLC HIGH SEVERITY& THREAT [facility] EMERGENCY [address] AMELIA Ignacio [address] [facility] T VISIT HIGH/URGE NT SEVERITY HOSPITAL AMELIA Ignacio 7 [facility] OUTPATIEN [facility] T EMERGENCY 26509 NATHALY MONK JR DEPT 7 7 MEDICAL VISIT SERV HIGH FOUNDATIO SEVERITY& N THREAT [facility] HOSPITAL AMELIA Ignacio 7 [facility] OUTPATIEN INC T HOSPITAL AMELIA Ignacio 7 [facility] OUTPATIEN [facility] T EMERGENCY 00704 [facility] SOOD DEPT 7 7 PHYSICIAN VISIT S, PLLC HIGH SEVERITY& THREAT FUN EMERGENCY 83995 [facility] FELTON DEPT 7 7 PHYSICIAN U VISIT S, PLLC HIGH SEVERITY& THREAT [facility] HOSPITAL AMELIA Ignacio 7 [facility] OUTPATIEN [facility] T OFFICE 59783 [facility]SULTAT 7 7 PHYSICIAN ION S GROUP NEW/ESTAB PATIENT 30 MIN HOSPITAL [facility] Ignacio 7 [facility] EMERGENCY 55171 [facility] THOMAS 7 7 PHYSICIAN DEPARTMEN S, [facility] T VISIT HIGH/URGE NT SEVERITY HOSPITAL AMELIA Ignacio 7 [facility] [address] AMELIA [address] [facility] T VISIT LOW/MODER SEVERITY [facility]ICE [facility] 7 PHYSICIAN T VISIT S GROUP 25 MINUTES [facility] AMELIA Ignacio 7 [facility] OFF[facility] 95266 [facility] 7 PHYSICIAN T VISIT S GROUP 25 MINUTES
--- OUTSIDE RECORDS SUMMARY | 2017-01-03 11:05 | External Medical Summary Rpt | CCD ---
Author Author , BRAYDEN Organization BRAYDEN Address Unknown Phone Care Team Providers Care Parking Line Painter Name Role Phone ESCALANTE, ESCALANTE Unavailable Unavailable [...] Unavailable Unavailable [facility], Unavailable Unavailable [facility] THOMAS, THOMAS Unavailable Unavailable [facility] Unavailable Unavailable [facility], [facility], Unavailable Unavailable [...] [facility], PAIN PLLC R1110 VOMITING 11-16-2016 [place] UNSPECIFIED MEDICAL IMAGING ASS Z720 TOBACCO USE 11-16-2016 [facility] Z9049 ACQUIRED 11-16-2016 [place] ABSENCE OTH MEDICAL SPEC PARTS IMAGING ASS DIGESTIVE TRACT K2980 DUODENITIS 10-28-2016 [facility] WITHOUT PHYSICIANS, BLEEDING PLLC K8050 CALCULUS BD 10-28-2016 [facility] W/O PHYSICIANS, CHOLANGITIS PLLC /CHOLECYST W/O OBST K9186 RETAINED 10-28-2016 [facility] SIS INC FOLLOWING CHOLECT [id number] OTH SPEC 10-28-2016 [facility] SURG & AMBULANCE MEDICAL SERVICE CARE NEC INIT ENC K910 VOMITING 10-27-2016 [facility] FOLLOWING [facility] GASTROINTES INC TINAL SURGERY [id number] OTHER LONG 10-27-2016 [facility] TERM [facility] CURRENT INC DRUG THERAPY K8012 CALCULUS GB 10-22-2016 [facility] W/ACUTE & PHYSICIANS CHRON GROUP CHOLECYST W/O OBST K8020 CALCULUS GB 10-22-2016 [place] W/O MEDICAL CHOLECYSTIT IMAGING ASS IS W/O OBSTRUCTION K8081 OTHER 10-22-2016 [facility] CHOLELITHIA PHYSICIANS, SIS WITH PLLC OBSTRUCTION K819 CHOLECYSTIT 10-22-2016 COMMUNITY IS ANESTH OF UNSPECIFIED THE BLUE K8000 CALCULUS GB 10-20-2016 [facility] W/ACUTE [facility] CHOLECYST INC W/O OBSTRUCTION C74319 ENCOUNTER 10-20-2016 [facility] FOR [facility] PREPROCEDUR INC AL LABORATORY EXAM K8010 CALCULUS GB 10-13-2016 [facility] W/CHRONIC PHYSICIANS CHOLECYST GROUP W/O OBSTRUCTION R1111 VOMITING 09-11-2016 [facility] WITHOUT [facility] NAUSEA INC J0100 ACUTE 09-10-2016 [facility] MAXILLARY PHYSICIANS SINUSITIS GROUP UNSPECIFIED R05 COUGH 08-31-2016 [facility] IMAGING ASS R631 POLYDIPSIA 08-31-2016 [facility] Medications Na ND Rx [...] 09 WN RA 30 17 17 36 [place] 5 26 PH DE AR MA 10 CY MG OF TA CY BL NT ET HI AN A NE 68 09 10 14 4 00 HO [...] 2 66 PH CE AR TA MA [place] CY NO PH OF EN CY 5- [...] complet N 012 ed SOURCE 10:50 CHART [id number] complet NUMBER 012 ed 10:50 Reagin Pending complet Ab 012 ed [Presen 10:50 ce] in Unspeci fied specime n by VDRL Procedures Procedure DOS Code Location Performer Comment RADEX 41659 [facility] C[facility] ABDOMEN 1 7 [facility] [place] [address] [place] ESCALANTE TRACT UPR 7 MEDICAL W/SM INT IMAGING [place] [address] [facility] CISNEROS AMYLASE 7 [place] [address] [place] ESCALANTE ABDOMEN & 7 MEDICAL PELVIS IMAGING W/[place] [address] [facility] CISNER[facility] LIPASE 7 [facility]OS[facility] INC INC URNLS DIP 84428 [facility] CISNEROS 7 [facility] STICK/TAB INC INC LET REAGENT AUTO MICROSCOP Y BLOOD 92835 [facility] C[facility] COUNT 7 [facility] COMPLETE INC INC AUTO&[place] [address] [facility] C[facility] INFUSION 7 [facility] THERAPY/P INC INC ROPHYLAXI S /DX 1ST TO 1 HR THERAPEUT 90702 [facility] C[facility] IC 7 [facility] INJECTION INC INC IV PUSH EACH NEW DRUG COLLECTIO 59968 [facility] AM[facility] N VENOUS 7 [facility] BLOOD INC INC VENIPUNCT URE COMPREHEN 13209 [facility] CISNER[facility] SIVE 7 MEM HOSP MEM HOSP METABOLIC INC INC PANEL URINE 19687 AM[facility] CISNEROS 7 [facility] TEST INC INC VISUAL COLOR CMPRSN METHS CULTURE 43256 [facility] CISNEROS BACTERIAL 7 [facility] MEM HOSP INC [place] [address] UNIVERSIT JAZMYNE ABDOMINAL 7 Y OF REAL [place]OS[place] W/[place] [address] AM[facility]IA BASILIOON INFUSION 7 MEM HOS[facility] THERAPY/P INC INC ROPHYLAXI S /DX 1ST TO 1 HR THERAPEUT 07637 [facility] C[facility]NER[facility] IC 7 MEM H[facility] MEM [facility]OSP INJECTION INC [place] [address] AM[facility] CISNEROS AMYLASE 7 MEM HOSP [facility] [place] [address] AMELIA CISNEROS LIPASE 7 MEM HOSP MEM HOS[facility] INC INC BLOOD 74229 AM[facility] CISNEROS COUNT 7 [facility] COMPLETE INC INC AUTO&AUTO DIFRNTL WBC CRITICAL 10313 [facility] 7 PHYSICIAN U ILL/INJUR S, PLLC ED PATIENT INIT 30-[place] [address] AM[facility] CISNEORS INFUSION 7 MEM HOSP [facility] THERAPY INC INC PROPHYLAX IS/DX EA HOUR GROUND A0425 [facility] AMBULANCE PER SERVICE SERVICE STATUTE MILE COMPREHEN 16657 [facility] CISNEROS SIVE 7 [facility]OSP METABOLIC INC INC PANEL COMPREHEN 58971 AMELIA AMELIA SIVE 7 [facility] [place] [address] AMELIA AMELIA INFUSION 7 MEM HOSP [facility] THERAPY INC INC PROPHYLAX IS/DX EA HOUR BLOOD 25167 AMELIA AMELIA COUNT 7 MEM HOSP MEM HOSP COMPLETE INC INC AUTO&[place] [address] AMELIA BASILIOON INFUSION 7 MEM HOSP [facility] THERAPY/P INC INC ROPHYLAXI S /DX 1ST TO 1 HR THERAPEUT 19764 [facility] CISNEROS IC 7 [facility] INJECTION INC INC IV PUSH EACH NEW DRUG URNLS DIP 33044 AM[facility]IA CISNEROS 7 [facility] STICK/TAB INC INC LET REAGENT AUTO MICROSCOP Y CULTURE 60743 [facility] CISNEROS BACTERIAL 7 [facility] BLOOD INC INC AEROBIC W/[place] [address] AMELIA CISNEROS AMYLASE 7 [facility] [place] [address] AM[facility]IA CISNEROS LACTATE 7 [place] [address] [facility] CISNEROS ABDOMEN & 7 MEM HOSP [facility] PELVIS INC INC W/[place] [address] AM[facility] CISNEROS LIPASE 7 [place] [address] [place] ESCALANTE ABDOMINAL 7 MEDICAL REAL IMAGING TIME ASS W/IMAGE LIMITED ANES 66025 [facility]TRAP[facility] 7 ANESTH TONEAL OF THE UPPER BLUE ABDOMEN W/LAPS NOS LAPAROSCO 80273 [facility] GLENN PY SURG 7 PHYSICIAN CHOLECYST S GROUP ECTOMY LEVEL III 19382 CHIPPS MORENO SURG 7 CORAL & PATHOLOGY DUBILIER GROSS&MALINI ROSCOPIC EXAM COMPREHEN 58617 [facility] CISNEROS SIVE 7 MEM HOSP [facility] METABOLIC INC INC PANEL COLLECTIO 57250 [facility] CISNEROS N VENOUS 7 MEM HOSP [facility] BLOOD INC INC VENIPUNCT URE BLOOD 63115 [facility] CISNEROS COUNT 7 MEM HOSP [facility] COMPLETE INC INC AUTO&AUTO DIFRNTL WBC GONADOTRO 55596 AM[facility] CISNEROS PIN 7 MEM HOSP [facility] [place] [address] AM[facility] BASILIOON ABDOMINAL 7 MEM HOS[facility] MEM [facility]OS[facility] REAL INC INC TIME W/IMAGE LIMITED URNLS DIP 18545 [facility] CISNEROS 7 MEM HOSP [facility] STICK/TAB INC INC LET REAGENT AUTO MICROSCOP Y CULTURE 07947 [facility] CISNEROS BACTERIAL 7 MEM HOS[facility] MEM HOS[facility] INC INC QUANTTATI VE COLONY COUNT URINE URINE 63639 AMELIA AMELIA 7 MEM [facility] TEST INC INC VISUAL COLOR CMPRSN METHS GENERAL 94472 [facility] CISNEROS HEALTH 7 MEM HOSP MEM HOSP PANEL INC INC HEMOGLOBI 51373 AM[facility]IA CISNEROS N 7 MEM HOSP [facility] GLYCOSYLA INC INC OANH A1C RADIOLOGI 34361 [facility] C EXAM 7 MEDICAL CHEST 2 IMAGING VIEWS ASS FRONTAL&[place] [address] AMELIA CISNEROS FREE 7 [facility] HOSP THYROXINE INC INC Encounters Encounter Start End Date Code Location Performer Type Date HOSPITAL AMELIA Ignacio 7 [facility] OUTPATIEN INC T EMERGENCY 18167 W[facility] SOOD DEPT 7 7 PHYSICIAN VISIT S, PLLC HIGH SEVERITY& THREAT [facility] EMERGENCY 73328 AMELIA Ignacio [address] [facility] T VISIT HIGH/URGE NT SEVERITY HOSPITAL AMELIA Ignacio 7 [facility] OUTPATIEN [facility] T EMERGENCY 45498 NATHALY MONK JR DEPT 7 7 MEDICAL VISIT SERV HIGH FOUNDATIO SEVERITY& N THREAT [facility] HOSPITAL AMELIA Ignacio 7 [facility] OUTPATIEN INC T HOSPITAL AMELIA Ignacio 7 [facility] OUTPATIEN [facility] T EMERGENCY 90860 WILIAN SOOD DEPT 7 7 PHYSICIAN VISIT S, PLLC HIGH SEVERITY& THREAT [facility] EMERGENCY 40028 WILIAN FELTON DEPT 7 7 PHYSICIAN U VISIT S, PLLC HIGH SEVERITY& THREAT [facility] HOSPITAL AMELIA Ignacio 7 [facility] OUTPATIEN [facility] T OFFICE 51580 [facility] CONSULT[facility] 7 7 PHYSICIAN ION S GROUP NEW/ESTAB PATIENT 30 MIN HOSPITAL AM[facility] Ignacio 7 [facility] T EMERGENC[facility] 13046 W[facility] THOMAS 7 7 PHYSICIAN DEPARTMEN S, [facility] T VISIT HIGH/URGE NT SEVERITY HOSPITAL AMELIA Ignacio 7 [facility] 23473 AMELIA [address] [facility] T VISIT LOW/MODER SEVERITY [facility]ICE 5[facility] 7 PHYSICIAN T VISIT S GROUP 25 MINUTES [facility] AMELIA Ignacio 7 [facility] OFF[facility] 15091 [facility] 7 7 PHYSICIAN T VISIT S GROUP 25 MINUTES
--- NOTE | 2017-01-03 11:06 | Emergency Room Report ---
History of Present Illness Time Seen by 104Maddy Presenting Problem in Triage Pt arrived:Walked Presenting Problem:STATES THAT SHE CANNOT BEND OR STRAIGHTEN HER LEFT KNEE. 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 N Clinical Suspician of Infection? N Mental Status: 1 - Regular (Normal Baseline) Sepsis Risk:Low Sepsis Risk Have you (or family members/close friends) recently traveled outside the [place]? N If Yes, where/when: Have you had exposure to infectious disease within the past month? N TB? Other? Specify: 36 years old white female who woke up about 3 days ago unable to actively extend her knee. It can be straighten out passively with discomfort. She complains of pain in the surrounding muscles in the knee. She denies having kneee effusion or calf tenderness. She has no swelling of the calf no dilated veins noted, no redness and tenderness. She denies having lower back pain and abdominal pain chest pain numbness or tingling in the lower extremities. No distal foot pain. Source patient, RN notes reviewed Exam Limitations no limitations ALLERGIES Coded Allergies: Penicillins (10/22/16) Home Medications Active Scripts PROMETHAZINE HCL (Phenergan 25MG Tab (Geq)) 25 MG PO Q6HP PRN N/V #14 TAB Prov: 10/27/16 ONDANSETRON HCL (Zofran 4MG Tab) 4 MG PO Q6HP PRN NAUSEA AND VOMITING #20 TAB Prov: 11/16/16 Reported Medications CLONIDINE HCL (Clonidine 0.1MG) 0.1 MG PO NIGHTLY #30 Meloxicam (Meloxicam 7.5MG) 7.5 MG PO DAILY #30 Sertraline Hcl (Sertraline 50MG) 25 MG PO DAILY #45 History Medical History General CAD? No Angina: No MA: No Hypertension? No Hyperlipidemia? No CHF? No DVT? No PE? No COPD? No Asthma? No Anemia? No GERD? No Gastric ulcers? No GI Bleed? No Hernia? No Thyroid Problems? No Hypothyroidism? No CVA? No Seizures? No Diabetes? No Renal Insuffiency? No End Stage Renal Disease? No UTI? No Stones? No BPH? No GB Disease: Yes Nephritic Syndrome? No Asplenia? No Hepatitis? No Sickle Cell Disease? No Arthritis? No Migraines? No Cataracts? No Glaucoma? No MRSA? Yes HIV? No TB? No Anxiety? No Depression? Yes Cancer? Yes Site: CERVICAL More? No Immunization Hx Ped.Immunizations UTD Yes DT/Tetanus 5-10 Years Ago Flu 2016-17FSN Pneumonia Refuses Surgical Hx Previous Surgery?Y CYROTHERAPY/ABD. 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 Respiratory no symptoms reported Cardiovascular no symptoms reported Gastrointestinal no symptoms reported Genitourinary no symptoms reported. Musculoskeletal see HPI, joint pain Skin no symptoms reported Psychiatric/Neurological no symptoms reported Physical Exam Vital Signs Vital Signs Date Time Temp Pulse Resp B/P Pulse O2 O2 Flow FiO2 Ox Delivery Rate 01/03 1119 18 01/03 1116 88 18 138/71 98 01/03 1021 97.6 94 18 131/79 98 - WBC >12,000 or <4,000 or 10% bands? 2 or more SIRS Criteria Met? B/P:131/79 MAP:96 Creatinine >2.0? UA output<0.5ml/kg/hr for 2 hrs? Platelet count >100,000? Lactate >2.0mmol/1? INR >1.2 or PTT > than 60 sec? Evidence of Organ Dysfunction? Provider documented clinical suspician of infection? N Sepsis Criteria Count: 1 Sepsis Risk: Low Sepsis Risk General Appearance normal appearance, WD/WN Eye Exam - bilateral eye normal exam, bilateral eye PERRL, bilateral eye EOMI Ear, Nose, Throat hearing grossly normal, normal ENT inspection Neck normal inspection, non-tender, supple, full range of motion Respiratory Status Yes: trachea midline, chest symmetrical, non tender chest. No: respiratory distress. Lung Sounds bilateral: normal breath sounds, lungs clear. Cardiovascular normal exam, regular rate/rhythm, no peripheral edema, no gallop, no JVD, no murmur, no rub, normal peripheral pulses Peripheral Pulses Pulses normal Yes Gastrointestinal normal bowel sounds, normal exam, non tender, soft, no organomegaly Back normal inspection, no CVA tenderness, no vertebral tenderness Extremities examination of the LEFT knee revealed a stable knee joint, no effusion, area of maximum tenderness over the popliteal fossa fullness, suspicious for Lopez's cyst. There is no muscle tendon tenderness, there is no calf tenderness, there is no warmth of the calf muscle in comparison to the RIGHT, no swelling no dilated veins. Dorsalis pedis pulse was 2+ strong. Cap refill was one second in both lower extremities. 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 No Results/Orders Laboratory Tests 01/03/17 1110: Sodium 140, Potassium 4.4, Chloride 105, Carbon Dioxide 26, BUN 9, Creatinine 0.5 L, Estimated Creat Clear 166, Estimated GFR (MDRD) 138, Glucose 96, Calcium 9.2, D-Dimer 322, WBC 8.0, RBC 5.55 H, Hgb 16.5 H, Hct 50.1 H, MCV 90.2, RDW 12.9, Plt Count 251, MPV 7.8, Gran % 61.8, Gran # 4.9, Lymphocytes % 29.5, Monocytes % 5.2, Eosinophils % 3.3, Basophils % 0.3, Lymphocytes # 2.3, Monocytes # 0.4, Eosinophils # 0.3, Basophils # 0.0, PUBS MCHC 33.0, MCH 29.8 Current Medication Orders Sig/Gabby Start time Last Medication Dose Route Stop Time Status Admin Ketorolac 0 .STK-MED ONE 01/03 1119 DC Tromethamine .ROUTE Ketorolac 30 MG ONCE ONE 01/03 111 DC 01/03 Tromethamine IV 01/04 1116 111 Sodium Chloride 10 ML PRN PRN 01/03 111 AC IV 01/04 1108 Orders Procedure Date/time Status IV SALINE LOCK 01/03 110 Active VENOUS LOWER EXT LT 01/03 110 Active D-DIMER 10/22 1106 Complete CBC WITH AUTO DIFF 01/03 110 Complete BASIC METABOLIC PROFILE 01/03 110 Complete Departure Departure Time of Disposition 1248 Disposition DC Home or Self Care(routine) Clinical Impression Primary Impression: Knee pain, left Condition STABLE Referrals Jaya Martin APRN (Family) Additional Instructions the aptient underwent negative dimer, labs, us and plain film x ray for fracture subulxation, DVT or lopez's cyst. I infomed the patienthat the next step is an MRI of her ligaments and meniscuses. she verbalized understanding. 1- rest. 2- elevate, 3- ice 4- immobilized 5- crutches 6- toradol 7- follow up with pcp for an MRI order Discharge Counseling Counseled pt/family regarding diagnosis, test results, medications/RX, home care, follow up needs Prescriptions Current Visit Scripts KETOROLAC TROMETHAMINE (TORADOL 10MG) 10 MG PO Q12HP #6 TAB ED Critical Care Critical Care No If Critical Care minutes are documented, the time involved in the performance of seperately reportable procedures was not counted toward critical care time documented. I directly delivered medical care to this critically ill and/or injured patient. Timely evaluation and treatment was necessary to address the significant organ system(s) dysfunction present in this patient. at 1251
--- OUTSIDE RECORDS SUMMARY | 2017-01-03 11:06 | External Medical Summary Rpt | CCD ---
Author Author , BRAYDEN Organization [facility]AR[facility] Address Unknown Phone [email or web address] Care Team Providers Care Assignment Editor Name Role Phone ESCALANTE, ESCALANTE Unavailable Unavailable [facility] Unavailable Unavailable SERVICE, [facility] Unavailable Unavailable SERVICE, [facility] MORENO MAYER Unavailable Unavailable [facility] Unavailable Unavailable [facility] FRYMRADHA FRYMAN Unavailable Unavailable BARRIE, BARRIE Unavailable Unavailable JAZMYNE, JAZMYNE Unavailable Unavailable [facility] Unavailable Unavailable INC, [facility], Unavailable Unavailable [facility] MARTHA THOMAS Unavailable Unavailable [facility] Unavailable Unavailable [facility], [facility], Unavailable Unavailable PLLC, [facility] GLENN, GLENN Unavailable Unavailable [facility], Unavailable Unavailable SANDITINGTRACEY GOFF Unavailable Unavailable Purpose Continuity of Care Document - 07-03-2016 through 2016 Problems Code Diagnosis DOS Provider Status R109 UNSPECIFIED 11-23-2016 [facility] PAIN INC R112 NAUSEA WITH 11-23-2016 [facility] VOMITING [facility] UNSPECIFIED INC R1011 RIGHT UPPER 11-16-2016 [facility], PAIN PLLC R1110 VOMITING 11-16-2016 [place] Z720 TOBACCO USE 11-16-2016 [facility] Z9049 ACQUIRED 11-16-2016 [place] ABSENCE OT MEDICAL SPEC PARTS IMAGING ASS DIGESTIVE TRACT K2980 DUODENITIS 10-28-2016 [facility], BLEEDING PLLC K8050 CALCULUS BD 10-28-2016 [facility] W/O PHYSICIANS, CHOLANGITIS PLLC /CHOLECYST W/O OBST K9186 RETAINED 10-28-2016 [facility] SIS INC FOLLOWING CHOLECT R404NMA OTH SPEC 10-28-2016 [facility] COMP SURG & AMBULANCE MEDICAL SERVICE CARE NEC INIT ENC K910 VOMITING 10-27-2016 [facility]ING [facility] GASTROINTES INC TINAL SURGERY U10808 OTHER LONG 10-27-2016 [facility] TERM [facility] CURRENT INC DRUG THERAPY K8012 CALCULUS GB 10-22-2016 [facility] W/ACUTE & PHYSICIANS CHRON GROUP CHOLECYST W/O OBST K8020 CALCULUS GB 10-22-2016 [place] W/O MEDICAL CHOLECYSTIT IMAGING ASS IS W/O OBSTRUCTION K8081 OTHER 10-22-2016 [facility] CHOLELITHIA PHYSICIANS, SIS WITH PLLC OBSTRUCTION K819 CHOLECYSTIT 10-22-2016 COMMUNITY IS ANESTH OF UNSPECIFIED THE BLUE K8000 CALCULUS GB 10-20-2016 [facility] W/ACUTE [facility] CHOLECYST INC W/O OBSTRUCTION W39034 ENCOUNTER 10-20-2016 [facility] FOR [facility] PREPROCEDUR INC AL LABORATORY EXAM K8010 CALCULUS GB 10-13-2016 [facility] W/CHRONIC PHYSICIANS CHOLECYST GROUP W/O OBSTRUCTION R1111 VOMITING 09-11-2016 [facility] WITHOUT [facility] NAUSEA INC J0100 ACUTE 09-10-2016 [facility] MAXILLARY PHYSICIANS SINUSITIS GROUP UNSPECIFIED R05 COUGH 08-31-2016 [facility] R631 POLYDIPSIA 08-31-2016 [facility] Medications Na ND Rx [...] 09 WN RA 30 17 17 36 NC 5 26 PH DE AR MA 10 CY MG OF TA CY BL NT ET HI AN A WV 68 09 10 14 4 00 HO [...] 2 66 PH CE AR TA MA NC CY NO PH OF EN CY 5- [...] BL CY ET NT HI AN A WV 68 06 07 12 3 00 WA [...] 10 3- 7- 00 06 TO ve WV 00 20 20 08 WN ED 50 [...] -2 .0 00 ME ti XI 20 2 3- 06 TO ve CA 05 20 20 08 WN M 00 17 17 36 7. 5 48 PH 5 AR MG MA CY TA BL OF ET CY NT HI AN A CL 68 05 06 30 30 00 HO Ac ON 00 -2 -2 .0 00 ME ti ID 10 2- 3- 06 TO ve IN 23 20 20 08 WN E 70 17 17 36 HC 3 49 PH L AR 0. MA 1 CY MG OF TA BL CY ET NT HI AN A SE 65 05 06 45 30 00 HO Ac RT 86 -2 -2 .0 00 ME ti RA 20 2- 3- 06 TO ve LI 01 20 20 08 WN NE 20 17 17 36 5 50 PH HC AR L MA 50 CY MG OF TA CY BL NT ET HI AN A SE 65 04 05 45 30 00 HO Ac RT 86 -1 -1 .0 00 ME ti RA 20 8- 2- 06 TO ve LI 01 20 20 08 WN NE 20 17 17 36 5 50 PH HC AR L MA 50 CY MG OF TA CY BL NT ET HI AN A ME 68 04 05 30 30 00 HO Ac LO 38 -1 -1 .0 00 ME ti XI 20 8- 2- 06 TO ve CA 05 20 20 08 WN M 00 17 17 36 7. 5 48 PH 5 AR MG MA CY TA BL OF ET CY NT HI AN A CL 68 04 05 30 30 00 HO Ac ON 00 -1 -1 .0 00 ME ti ID 10 8- 2- 06 TO ve IN 23 20 20 [...] 00 ME ti ID 10 2- 1- 06 TO ve IN 23 20 20 08 WN E 70 17 17 36 HC 3 49 PH L AR 0. MA 1 CY MG OF TA BL CY ET NT HI AN A ME 68 03 04 30 30 00 HO Ac LO 38 -2 -2 .0 00 ME ti XI 20 2 1- 06 TO ve CA 05 20 20 [...] Procedure DOS Code Location Performer Comment RADEX 61313 [facility] CISNEROS ABDOMEN 1 7 [facility] HOSP INC [place] [address] [place] [facility] TRACT UPR 7 MEDICAL W/SM INT IMAGING [place] [address] AM[facility]IA CISNEROS AMYLASE 7 [facility] [place] [address] AMELIA CISNEROS LIPASE 7 MEM HOSP [facility] INC INC COMPREHEN 02834 AMELIA CISNEROS SIVE 7 [facility] HOSP METABOLIC INC INC PANEL COLLECTIO 41403 [facility] CISNEROS N VENOUS 7 [facility] [address] AM[facility] CISNEROS ABDOMEN & 7 [facility] HOSP PELVIS [place] [address] AMELIA CISNEROS INFUSION 7 [facility] HOSP THERAPY/P INC INC ROPHYLAXI S /DX 1ST TO 1 HR THERAPEUT 92372 AM[facility]IA CISNEROS IC 7 [facility] HOSP INJECTION INC INC IV PUSH EACH NEW DRUG CULTURE 28219 AM[facility]IA CISNEROS BACTERIAL 7 [facility] INC INC QUANTTATI VE COLONY COUNT URINE URINE 48224 AMELIA CISNEROS 7 [facility]OS[facility] TEST INC INC VISUAL COLOR CMPRSN METHS URNLS DIP 72614 AM[facility]IA CISNEROS 7 [facility] HOSP STICK/TAB INC INC LET REAGENT AUTO MICROSCOP Y BLOOD 05547 [facility] CISNEROS COUNT 7 MEM H[facility] MEM [facility]OS[facility] COMPLETE INC INC AUTO&[place] [address] UNIVERSIT JAZMYNE ABDOMINAL 7 Y OF REAL [place] TIME [facility]OSPI W/IMAGE LIMITED GROUND A0425 [facility] 7 AMBULANCE AMBULANCE [place] [address] AMELIA CISNEROS INFUSION 7 MEM HOSP MEM HOSP THERAPY/P INC INC ROPHYLAXI S /DX 1ST TO 1 HR THERAPEUT 42825 AM[facility] CISNEROS IC 7 MEM H[facility]P [facility] INJECTION INC [place] [address] AMELIA CISNEROS LIPASE 7 [facility] INC INC COMPREHEN 57109 AM[facility] CISNEROS SIVE 7 [facility] [address] AMELIA CISNEROS AMYLASE 7 MEM HOSP [facility]OS[facility] INC INC CRITICAL 22983 [facility] 7 PHYSICIAN U ILL/INJUR S, PLLC ED PATIENT INIT 30-74 MIN BLOOD 97537 AM[facility] CISNEROS COUNT 7 MEM H[facility] MEM [facility]OS[facility] COMPLETE INC INC AUTO&[place] [address] AMELIA CISNEROS INFUSION 7 [facility] THERAPY INC [place] PROPHYLAX [place] [address] AMELIA BASILIOON INFUSION 7 MEM H[facility] THERAPY INC INC PROPHYLAX IS/DX EA HOUR BLOOD 14258 AMELIA BASILIOON COUNT 7 MEM HOS[facility] MEM [facility]OS[facility] COMPLETE INC INC AUTO&[place] [address] AMELIA CISNEROS AMYLASE 7 [place] [address] AMELIA CISNEROS LACTATE 7 MEM HOSP MEM HOSP INC INC URNLS DIP 04009 AMELIA AMELIA 7 MEM HOSP MEM HOSP STICK/TAB INC INC LET REAGENT AUTO MICROSCOP Y COMPREHEN 89363 AMELIA CISNEROS SIVE 7 MEM [facility] [place] [address] AMELIA CISNEROS LIPASE 7 [place] [address] AMELIA CISNEROS ABDOMEN & 7 MEM HOSP MEM HOSP PELVIS INC INC W/O CONTRAST MATERIAL THERAPEUT 43338 AMELIA CISNEROS IC 7 MEM HOSP MEM [facility]OSP INJECTION [place] [address] AMELIA CISNEROS INFUSION 7 [facility] THERAPY/P INC INC ROPHYLAXI S /DX 1ST TO 1 HR CULTURE 86295 AMELIA CISNEROS BACTERIAL 7 MEM HOSP MEM HOSP BLOOD INC INC AEROBIC W/ID ISOLATES LAPAROSCO 60027 [facility] GLENN PY SURG 7 [place] [address] [place] ESC[facility] ABDOMINAL 7 MEDICAL REAL IMAGING TIME ASS W/IMAGE LIMITED ANES 42100 [facility] TRACEY INTRAPERI 7 ANESTH TONEAL OF THE UPPER BLUE ABDOMEN W/LAPS NOS LEVEL III 60262 [facility] MORENO SURG 7 CORAL & PATHOLOGY DUBILIER GROSS&MALINI ROSCOPIC EXAM COLLECTIO 87759 AMELIA CISNEROS N VENOUS 7 MEM H[facility] MEM [facility]OS[facility] BLOOD INC INC VENIPUNCT URE COMPREHEN 83839 AMELIA CISNEROS SIVE 7 MEM HOS[facility] MEM HOSP METABOLIC INC INC PANEL GONADOTRO 74078 AMELIA CISNEROS PIN 7 MEM HOSP MEM HOSP CHORIONIC INC INC QUALITATI VE BLOOD 86463 AMELIA CISNEROS COUNT 7 MEM H[facility] MEM [facility]OSP COMPLETE INC INC AUTO&[place] [address] AMELIA CISNEROS ABDOMINAL 7 MEM H[facility]OS[facility] REAL INC INC TIME W/IMAGE LIMITED URNLS DIP 80415 AMELIA CISNEROS 7 [facility] STICK/TAB INC INC LET REAGENT AUTO MICROSCOP Y CULTURE 08551 AMELIA CISNEROS BACTERIAL 7 [facility] H[facility]OS[facility] INC INC QUANTTATI VE COLONY COUNT URINE URINE 05407 AMELIA CISNEROS 7 [facility] TEST INC INC VISUAL COLOR CMPRSN METHS HEMOGLOBI 57290 AMELIA CISNEROS N 7 [facility] H[facility] GLYCOSYLA [place] [address] AMELIA CISNEROS FREE 7 [facility] THYROXINE INC INC GENERAL 01557 AMELIA CISNEROS HEALTH 7 MEM [facility] PANEL INC INC RADIOLOGI 74438 AMELIA CISNEROS C EXAM 7 [facility] CHEST 2 INC INC VIEWS FRONTAL&L ATERAL Encounters Encounter Start End Date Code Location Performer Type Date HOSPITAL AMELIA - 7 7 [facility] OUTPATIEN INC T EMERGENCY 83393 AMELIA 7 7 [facility] DEPARTMEN INC T VISIT HIGH/URGE NT SEVERITY EMERGENCY 98056 WILIAN SOOD DEPT 7 7 PHYSICIAN VISIT S, [facility] HIGH SEVERITY& THREAT [facility] AMELIA - Sandee 7 [facility] OUTPATIEN INC HOSPITAL AMELIA Butler 7 7 [facility] OUTPATIEN [facility] T EMERGENCY 20343 AMELIA DEPT 7 7 MEM HOSP VISIT INC HIGH SEVERITY& THREAT [facility] 64990 AMELIA DEPT 7 7 MEM HOSP VISIT INC HIGH SEVERITY& THREAT [facility] AMELIA - [place] 7 [facility] OUTPATIEN [facility] T EMERGENCY 09282 WILIAN FELTON DEPT 7 7 PHYSICIAN U VISIT S, [facility] HIGH SEVERITY& THREAT [facility] AMELIA - 7 7 [facility] OUTPATIEN [facility] OFFICE 07584 [facility] GLENN CONSULTAT 7 7 PHYSICIAN ION S GROUP NEW/ESTAB PATIENT 30 MIN HOSPITAL AMELIA - Sandee 7 [facility]IEN [facility] T EMERGENCY [id number] WILIAN THOMAS 7 7 PHYSICIAN DEPARTMEN S, [facility] T VISIT HIGH/URGE NT SEVERITY EMERGENCY [id number] [facility] 7 7 [facility] T VISIT LOW/MODER SEVERITY [facility]OSP[facility] - 7 7 [id number] T VISIT S GROUP 25 MINUTES OFFICE [id number] [facility] OUTPATIEN 7 7 PHYSICIAN T VISIT S GROUP 25 MINUTES HOSPITAL [facility] - 7 [facility]
--- OUTSIDE RECORDS SUMMARY | 2017-01-03 11:06 | External Medical Summary Rpt | CCD ---
Author Author , BRAYDEN Organization [employer] Address Unknown Phone [email or web address] Care Team Providers Care Computing Tutor Name Role Phone ESCALANTE, ESCALANTE Unavailable Unavailable [facility] Unavailable Unavailable SERVICE, [facility] Unavailable Unavailable SERVICE, [facility] MORENO MAYER Unavailable Unavailable [facility] Unavailable Unavailable [facility] FRYMRADHA FRYMAN Unavailable Unavailable BARRIE, BARRIE Unavailable Unavailable JAZMYNE, JAZMYNE Unavailable Unavailable [facility] Unavailable Unavailable INC, [facility], Unavailable Unavailable [facility] MARTHA THOMAS Unavailable Unavailable [facility] Unavailable Unavailable [facility], [facility], Unavailable Unavailable [...] [facility], PAIN PLLC R1110 VOMITING 11-16-2016 [facility] Z720 TOBACCO USE 11-16-2016 [facility] INC Z9049 ACQUIRED 11-16-2016 [facility] ABSENCE OT MEDICAL SPEC PARTS IMAGING ASS DIGESTIVE TRACT K2980 DUODENITIS 10-28-2016 [facility] WITHOUT [facility]YSICIANS, BLEEDING PLLC K8050 CALCULUS BD 10-28-2016 [facility] W/O PHYSICIANS, CHOLANGITIS PLLC /CHOLECYST W/O OBST K9186 RETAINED 10-28-2016 [facility] SIS INC FOLLOWING CHOLECT [id number] OTH SPEC 10-28-2016 [facility] COMP [facility]G & [facility]ICE CARE NEC INIT ENC K910 VOMITING 10-27-2016 [facility] GASTROINTES INC TINAL SURGERY V70365 OTHER LONG 10-27-2016 [facility] CURRENT INC DRUG THERAPY K8012 CALCULUS GB 10-22-2016 [facility] W/ACUTE & PHYSICIANS CHRON GROUP CHOLECYST W/O OBST K8020 CALCULUS GB 10-22-2016 [facility] W/O MEDICAL CHOLECYSTIT IMAGING ASS IS W/O OBSTRUCTION K8081 OTHER 10-22-2016 [facility]ITHIA [facility], SIS WITH PLLC OBSTRUCTION K819 CHOLECYSTIT 10-22-2016 [facility] UNSPECIFIED [facility] K8000 CALCULUS GB 10-20-2016 [facility] W/ACUTE [facility] CHOLECYST INC W/O OBSTRUCTION T85751 ENCOUNTER 10-20-2016 [facility] PREPROCEDUR INC AL LABORATORY EXAM K8010 CALCULUS GB 10-13-2016 [facility] W/CHRONIC PHYSICIANS CHOLECYST GROUP W/O OBSTRUCTION R1111 VOMITING 09-11-2016 [facility] NAUSEA INC J0100 ACUTE 09-10-2016 [facility] MAXILLARY PHYSICIANS SINUSITIS GROUP UNSPECIFIED R05 COUGH 08-31-2016 [facility] R631 POLYDIPSIA 08-31-2016 [facility] Medications Na ND [...] 09 WN RA 30 17 17 36 IN 5 26 PH DE AR MA 10 CY MG OF TA CY BL NT ET HI AN A MS 68 09 10 14 4 00 HO [...] 2 66 PH CE AR TA MA IN CY NO PH OF EN CY 5- [...] BL CY ET NT HI AN A MS 68 06 07 12 3 00 WA [...] 10 3- 7- 00 06 TO ve MS 00 20 20 08 WN ED 50 [...] Procedure DOS Code Location Performer Comment RADEX 26643 [facility] ABDOMEN 1 7 [facility] INC [place] [address] [facility] ESCALANTE TRACT UPR 7 MEDICAL W/SM INT IMAGING W/[place] [address] [facility] AMYLASE 7 [facility] [place] [address] [facility] LIPASE 7 [facility] INC INC COMPREHEN 05440 [facility] SIVE 7 [facility] METABOLIC INC INC PANEL COLLECTIO 73828 [facility] N VENOUS 7 [facility] [address] [facility] ABDOMEN & 7 [facility] PELVIS [place] W/[place] [address] [facility] INFUSION 7 [facility]OS[facility] THERAPY/P INC INC ROPHYLAXI S /DX 1ST TO 1 HR THERAPEUT 88537 [facility] IC 7 [facility] INJECTION INC INC IV PUSH EACH NEW DRUG CULTURE 80270 [facility] BACTERIAL 7 [facility] INC INC QUANTTATI VE COLONY COUNT URINE URINE 32925 [facility] 7 [facility] TEST INC INC VISUAL COLOR CMPRSN METHS URNLS DIP 09364 [facility] 7 [facility] STICK/TAB INC INC LET REAGENT AUTO MICROSCOP Y BLOOD 68495 [facility] COUNT 7 [facility]OS[facility] COMPLETE INC INC AUTO&[place] [address] UNIVERSIT JAZMYNE ABDOMINAL 7 Y OF REAL [facility] W/IMAGE LIMITED GROUND A0425 [facility] 7 AMBULANCE AM[place]ULANCE [place] [address] [facility] INFUSION 7 [facility] THERAPY/P INC INC ROPHYLAXI S /DX 1ST TO 1 HR THERAPEUT 26889 [facility] IC 7 [facility] INJECTION INC [place] [address] [facility] LIPASE 7 [facility] INC INC COMPREHEN 50912 [facility] SIVE 7 [facility] [address] [facility] C[facility] AMYLASE 7 [facility] INC INC CRITICAL 32216 [facility] 7 PHYSICIAN U ILL/INJUR S, PLLC ED PATIENT INIT 30-74 MIN BLOOD 72392 [facility] COUNT 7 [facility] COMPLETE INC INC AUTO&[place] [address] [facility] INFUSION 7 [facility] THERAPY INC INC PROPHYLAX IS/[place] [address] [facility] BASILIOON INFUSION 7 [facility] THERAPY INC INC PROPHYLAX IS/DX EA HOUR BLOOD 56504 [facility] BASILIOON COUNT 7 [facility] COMPLETE INC INC AUTO&[place] [address] [facility] AMYLASE 7 [place] [address] [facility] LACTATE 7 [facility]OS[facility] INC INC URNLS DIP 85012 [facility] AMELIA 7 MEM HOSP MEM [facility]OS[facility] STICK/TAB INC INC LET REAGENT AUTO MICROSCOP Y COMPREHEN 65857 [facility] SIVE 7 [facility] [place] [address] [facility] LIPASE [address] [place] [address] [facility] ABDOMEN & 7 MEM [facility] MEM HOSP PELVIS INC INC W/O CONTRAST MATERIAL THERAPEUT 62942 [facility] C[facility] IC 7 MEM H[facility] MEM HOSP INJECTION [place] [address] [facility] INFUSION 7 [facility] THERAPY/P INC INC ROPHYLAXI S /DX 1ST TO 1 HR CULTURE 08980 [facility] C[facility] BACTERIAL 7 MEM HOS[facility] MEM HOSP BLOOD INC INC AEROBIC W/ID ISOLATES LAPAROSCO 15812 [facility] P[facility] SURG 7 PHYSIC[place] [address] [facility] ESCALANTE ABDOMINAL 7 MEDICAL REAL IMAGING TIME ASS W/IMAGE LIMITED ANES 17832 [facility] TRACEY INTRAPERI 7 ANESTH TONEAL OF THE UPPER BLUE ABDOMEN W/LAPS NOS LEVEL III 83829 [facility]ENO SURG 7 CORAL & PATHOLOGY DUBILIER GROSS&MALINI ROSCOPIC EXAM COLLECTIO 24051 [facility] N VENOUS 7 [facility] BLOOD INC INC VENIPUNCT URE COMPREHEN 80877 [facility] SIVE 7 [facility]OS[facility] METABOLIC INC INC PANEL GONADOTRO 04718 [facility] PIN 7 MEM [facility] MEM HOSP CHORIONIC INC INC QUALITATI VE BLOOD 82574 [facility] COUNT 7 [facility]OS[facility] COMPLETE INC INC AUTO&[place] [address] [facility] ABDOMINAL 7 [facility] REAL INC INC TIME W/IMAGE LIMITED URNLS DIP 04851 [facility] 7 [facility] STICK/TAB INC INC LET REAGENT AUTO MICROSCOP Y CULTURE 04169 [facility] C[facility] BACTERIAL 7 [facility] INC INC QUANTTATI VE COLONY COUNT URINE URINE 82315 [facility]OS 7 [facility] TEST INC INC VISUAL COLOR CMPRSN METHS HEMOGLOBI 71030 [facility] N 7 [facility] GLYCOSYLA [place] [address] [facility] C[facility] FREE 7 [facility] THYROXINE INC INC GENERAL 77455 [facility] HEALTH 7 [facility] PANEL INC INC RADIOLOGI 87196 [facility] C EXAM 7 [facility] CHEST 2 INC INC VIEWS FRONTAL&L ATERAL Encounters Encounter Start End Date Code Location Performer Type Date HOSPITAL [facility] - 7 7 [facility] OUTPATIEN INC T EMERGENCY 21409 [facility] 7 7 [facility] DEPARTMEN INC T VISIT HIGH/URGE NT SEVERITY EMERGENCY 76489 [facility] SOOD DEPT 7 7 PHYSICIAN VISIT S, [facility] HIGH SEVERITY& THREAT [facility] AM[facility]IA - Sandee 7 [facility] HOSPITAL AM[facility] Butler 7 7 [facility]PATI[facility] T EMERGENCY 07239 [facility] DEPT 7 7 MEM [facility] VISIT INC HIGH SEVERITY& THREAT [facility] EMERGENCY 15240 [facility] DEPT 7 7 MEM [facility] VISIT INC HIGH SEVERITY& THREAT [facility] - Sandee 7 [facility] T EMERGENCY 42516 [facility] FELTON DEPT 7 7 PHYSICIAN U VISIT S, [facility] HIGH SEVERITY& THREAT [facility] - 7 7 [facility]IEN [facility] OFFICE 87321 [facility] CONSULTAT 7 7 PHYSICIAN ION S GROUP NEW/ESTAB PATIENT 30 MIN HOSPITAL [facility] - Sandee 7 [facility] OUTPATIEN [facility] T EMERGENCY 60295 [facility] THOMAS 7 7 PHYSICIAN DEPARTMEN S, [facility] T VISIT HIGH/URGE NT SEVERITY EMERGENCY 37262 [facility] 7 7 MEM [facility] DEPARTMEN INC T VISIT LOW/MODER SEVERITY HOSPITAL [facility] - 7 7 [facility]647 [facility] 7 7 PHYSICIAN T VISIT S GROUP 25 MINUTES OFFICE 90944 [facility] OUTPATIEN 7 7 PHYSICIAN T VISIT S GROUP 25 MINUTES HOSPITAL [facility] - 7 [facility] T
--- OUTSIDE RECORDS SUMMARY | 2017-01-03 11:07 | External Medical Summary Rpt | CCD ---
Demographics Preferred Language Japanese Marital Status Unknown Episcopalian Affiliation Unknown Race Unknown Ethnic Group Unknown Author Author , BRAYDEN OWEN Address Unknown Phone Immunization No patient found.
--- OUTSIDE RECORDS SUMMARY | 2017-01-03 11:07 | External Medical Summary Rpt | CCD ---
Demographics Preferred Language Wolof Marital Status Unknown Jew Affiliation Unknown Race Unknown Ethnic Group Unknown Author Author , BRAYDEN OWEN Address Unknown Phone Immunization No patient found.
--- OUTSIDE RECORDS SUMMARY | 2017-01-03 11:09 | External Medical Summary Rpt ---
Author Author [employer], [employer] Address Unknown Phone Unavailable Results Amylase [Enzymatic activity/volume] in Serum or Plasma Observa Value Referen Units Interpr Notes Date tion ce etation Range Amylase 25 - 115 U/L Normal No Sep 4 [Enzymati informati 2017 5:20 c on in AM activity/ source volume] data in Serum or Plasma Comprehensive metabolic 2000 panel in Serum or Plasma Observa Value Referen Units Interpr Notes Date tion ce etation Range Albumin/G 1.1 - 1.8 No Normal No Sep 4 lobulin informati informati 2017 5:20 [Mass on in on in AM ratio] in source source Serum or data data Plasma Albumin 3.4 - 5.0 gm/dL Normal No Sep 4 [Mass/vol informati 2017 5:20 ume] in on in AM Serum or source Plasma data Alkaline 46 - 116 U/L Normal No Sep 4 phosphata informati 2017 5:20 se on in AM [Enzymati source c data activity/ volume] in Serum or Plasma Bilirubin 0.2 - 1.0 mg/dL Normal No Sep 4 .total informati 2017 5:20 [Mass/vol on in AM ume] in source Serum or data Plasma Urea 7 - 18 mg/dL Normal No Sep 4 nitrogen informati 2017 5:20 [Mass/vol on in AM ume] in source Serum or data Plasma Calcium 8.5 - mg/dL Normal No Sep 4 [Mass/vol 10.1 informati 2017 5:20 ume] in on in AM Serum or source Plasma data Chloride 98 - 107 mmoL/L Normal No Sep 4 [Moles/vo informati 2017 5:20 lume] in on in AM Serum or source Plasma data Carbon 21.0 - mmoL/L Normal No Sep 4 dioxide, 32.0 informati 2017 5:20 total on in AM [Moles/vo source lume] in data Serum or Plasma Creatinin 0.55 - mg/dL Normal No Sep 4 e 1.02 informati 2017 5:20 [Mass/vol on in AM ume] in source Serum or data Plasma Creatinin 50 - 200 ML/MIN Normal No Sep 4 e renal informati 2017 5:20 clearance on in AM source predicted data by Cockcroft -Gault formula Estimated 59- ML/MIN No REFERENCE Sep 4 informati RANGE: 2017 5:20 glomerula on in >60 AM r source ML/MIN/1. filtratio data 73 SQUARE n rate METERSIf (GF this patient is -A merican, then multiply theresult by 1.210. Globulin 1.3 - 3.2 gm/dL High No Sep 4 [Mass/vol informati 2017 5:20 ume] in on in AM Serum source data Glucose 74 - 106 mg/dL High No Sep 4 [Mass/vol informati 2017 5:20 ume] in on in AM Serum or source Plasma data Potassium 3.5 - 5.1 mmoL/L Normal No Sep 4 informati 2016 5:20 [Moles/vo on in AM lume] in source Serum or data Plasma Sodium 136 - 145 mmoL/L Normal No Sep 4 [Moles/vo informati 2017 5:20 lume] in on in AM Serum or source Plasma data Aspartate 15 - 37 U/L Normal No Sep 4 informati 2017 5:20 aminotran on in AM sferase source [Enzymati data c activity/ volume] in Serum or Plasma Alanine 12 - 78 U/L Normal No Sep 4 aminotran informati 2017 5:20 sferase on in AM [Enzymati source c data activity/ volume] in Serum or Plasma Protein 6.4 - 8.2 gm/dL Normal No Sep 4 [Mass/vol informati 2016 5:20 ume] in on in AM Serum or source Plasma data Lipase [Enzymatic activity/volume] in Serum or Plasma Observa Value Referen Units Interpr Notes Date tion ce etation Range Lipase 73 - 393 U/L Normal No Sep 4 [Enzymati informati 2017 5:20 c on in AM activity/ source volume] data in Serum or Plasma CBC W Auto Differential panel in Blood Observa Value Referen Units Interpr Notes Date tion ce etation Range Basophils 0 - 0.2 K/MM3 Normal No Sep 4 inform2016 5:20 [#/volume on in AM ] in source Blood by data Automated count Basophils 0.1 - 2.0 % Normal No Sep 4 /100 informati 2017 5:20 leukocyte on in AM s in source Blood by data Automated count Eosinophi 0.0 - 0.4 K/mm3 High No Sep 4 ls informati 2016 5:20 [#/volume on in AM ] in source Blood by data Automated count Eosinophi 0.1 - % Normal No Sep 4 ls/100 12.0 informati 2016 5:20 leukocyte on in AM s in source Blood by data Automated count Granulocy 1.8 - 7.8 K/mm3 High No Sep 4 isaac informati 2016 5:20 [#/volume on in AM ] in source Blood by data Automated count Granulocy 37.0 - % Normal No Sep 4 isaac/100 80.0 informati 2016 5:20 leukocyte on in AM s in source Blood by data Automated count Hematocri 37.0 - % High No Sep 4 t [Volume 47.0 informati 2016 5:20 on in AM Fraction] source of Blood data Hemoglobi 12.2 - g/dL High No Sep 4 n 16.2 informati 2016 5:20 [Mass/vol on in AM ume] in source Blood data Lymphocyt 0.7 - 4.5 K/mm3 Normal No Sep 4 es informati 2017 5:20 [#/volume on in AM ] in source Unspecifi data ed specimen by Automated count Lymphocyt 10 - 50.0 % Normal No Sep 4 es informati 2016 5:20 [#/volume on in AM ] in source Unspecifi data ed specimen by Automated count Erythrocy 27 - 31.2 pg Normal No Sep 4 te mean informati 2016 5:20 corpuscul on in AM ar source hemoglobi data n [Entitic mass] Erythrocy 31.8 - g/dl Normal No Sep 4 te mean 35.4 informati 2016 5:20 corpuscul on in AM ar source hemoglobi data n concentra tion [Mass/vol ume] by Automated count Erythrocy 82.2 - fl Normal No Sep 4 te mean 97.8 informati 2016 5:20 corpuscul on in AM ar volume source [Entitic data volume] by Automated count Monocytes 0.1 - 1.0 K/mm3 Normal No Sep 4 informati 2016 5:20 [#/volume on in AM ] in source Blood by data Automated count Monocytes 1.7 - 9.3 % Normal No Sep 4 /100 informati 2016 5:20 leukocyte on in AM s in source Blood by data Automated count Platelet 7.4 - fl Normal No Sep 4 mean 10.4 informati 2016 5:20 volume on in AM [Entitic source volume] data in Blood by Automated count Platelets 142 - 424 K/mm3 Normal No Sep 4 inform2016 5:20 [#/volume on in AM ] in source Blood data Erythrocy 4.2 - 5.4 M/mm3 Normal No Sep 4 isaac informati 2016 5:20 [#/volume on in AM ] in source Amniotic data fluid Erythrocy 11.5 - % Normal No Sep 4 te 17.5 informati 2016 5:20 distribut on in AM ion width source [Entitic data volume] by Automated count Leukocyte 4.8 - K/MM3 Normal No Sep 4 s 10.8 informati 2016 5:20 [#/volume on in AM ] in source Blood data Choriogonadotropin.beta subunit [Units] in 24 hour Urine Observa Value Referen Units Interpr Notes Date tion ce etation Range Choriogon NEG No No No Sep 4 adotropin informati informati informati 2016 5:05 .beta on in on in on in AM subunit source source source [Units] data data data in 24 hour Urine CBC W Auto Differential panel in Blood Observa Value Referen Units Interpr Notes Date tion ce etation Range Basophils 0 - 0.2 K/MM3 Normal No Oct 28 inform2016 9:05 [#/volume on in AM ] in source Blood by data Automated count Basophils 0.1 - 2.0 % Normal No Oct 28 informati 2016 9:05 leukocyte on in AM s in source Blood by data Automated count Eosinophi 0.0 - 0.4 K/mm3 High No Oct 16 ls informati 2016 9:05 [#/volume on in AM ] in source Blood by data Automated count Eosinophi 0.1 - % Normal No Oct 28 ls/100 12.0 informati 2016 9:05 leukocyte on in AM s in source Blood by data Automated count Granulocy 1.8 - 7.8 K/mm3 High No Oct 28 isaac informati 2016 9:05 [#/volume on in AM ] in source Blood by data Automated count Granulocy 37.0 - % High No Oct 28 isaac/100 80.0 informati 2016 9:05 leukocyte on in AM s in source Blood by data Automated count Hematocri 37.0 - % Normal No Oct 28 t [Volume 47.0 informati 2017 9:05 on in AM Fraction] source of Blood data Hemoglobi 12.2 - g/dL Normal No Oct 28 n 16.2 informati 2017 9:05 [Mass/vol on in AM ume] in source Blood data Lymphocyt 0.7 - 4.5 K/mm3 Normal No Oct 28 es informati 2017 9:05 [#/volume on in AM ] in source Unspecifi data ed specimen by Automated count Lymphocyt 10 - 50.0 % Low No Oct 28 es informati 2017 9:05 [#/volume on in AM ] in source Unspecifi data ed specimen by Automated count Erythrocy 27 - 31.2 pg Normal No Oct 28 te mean informati 2017 9:05 corpuscul on in AM ar source hemoglobi data n [Entitic mass] Erythrocy 31.8 - g/dl Normal No Oct 28 te mean 35.4 informati 2017 9:05 corpuscul on in AM ar source hemoglobi data n concentra tion [Mass/vol ume] by Automated count Erythrocy 82.2 - fl Normal No Oct 28 te mean 97.8 informati 2017 9:05 corpuscul on in AM ar volume source [Entitic data volume] by Automated count Monocytes 0.1 - 1.0 K/mm3 Normal No Oct 28 informati 2017 9:05 [#/volume on in AM ] in source Blood by data Automated count Monocytes 1.7 - 9.3 % Normal No Oct 16 /100 informati 2017 9:05 leukocyte on in AM s in source Blood by data Automated count Platelet 7.4 - fl Normal No Oct 28 mean 10.4 informati 2017 9:05 volume on in AM [Entitic source volume] data in Blood by Automated count Platelets 142 - 424 K/mm3 Normal No Oct 16 informati 2017 9:05 [#/volume on in AM ] in source Blood data Erythrocy 4.2 - 5.4 M/mm3 Normal No Oct 16 isaac informati 2017 9:05 [#/volume on in AM ] in source Amniotic data fluid Erythrocy 11.5 - % Normal No Oct 28 te 17.5 informati 2017 9:05 distribut on in AM ion width source [Entitic data volume] by Automated count Leukocyte 4.8 - K/MM3 High No Oct 28 s 10.8 informati 2017 9:05 [#/volume on in AM ] in source Blood data Differential panel, method unspecified - Observa Value Referen Units Interpr Notes Date tion ce etation Range Eosinophi 0 - 3 % Normal No Oct 28 ls/100 informati 2016 9:05 leukocyte on in AM s in source Blood by data Manual count LYMPH 9 10 - 50 % Low No Oct 28 inform2016 tion in 9:05 AM source data Monocytes 2 - 9 % Normal No Oct 28 /100 informati 2016 9:05 leukocyte on in AM s in source Blood by data Automated count Platele NORMAL No No No No Oct 28 ts informa informa informa informa 2016 [Presen tion in tion in tion in tion in 9:05 AM ce] in source source source source Blood data data data data by Light microsc opy Neutrophi 42 - 76 % High No Oct 28 ls ati 2016 9:05 [#/volume on in AM ] in source Blood by data Automated count Cells No #CELLS No No Oct 28 Counted informati informati informati 2016 9:05 Total [#] on in on in on in AM in Blood source source source data data data Amylase [Enzymatic activity/volume] in Serum or Plasma Observa Value Referen Units Interpr Notes Date tion ce etation Range Amylase 25 - 115 U/L Normal No Oct 28 [Enzymati informati 2017 9:05 c on in AM activity/ source volume] data in Serum or Plasma Comprehensive metabolic 2000 panel in Serum or Plasma Observa Value Referen Units Interpr Notes Date tion ce etation Range Albumin/G 1.1 - 1.8 No Normal No Oct 28 lobulin informati informati 2016 9:05 [Mass on in on in AM ratio] in source source Serum or data data Plasma Albumin 3.4 - 5.0 gm/dL No No Oct 28 [Mass/vol informati informati 2016 9:05 ume] in on in on in AM Serum or source source Plasma data data Alkaline 46 - 116 U/L Normal No Oct 28 phosphata informati 2016 9:05 se on in AM [Enzymati source c data activity/ volume] in Serum or Plasma Bilirubin 0.2 - 1.0 mg/dL High No Oct 28 .total informati 2017 9:05 [Mass/vol on in AM ume] in source Serum or data Plasma Urea 7 - 18 mg/dL Normal No Oct 28 nitrogen informati 2016 9:05 [Mass/vol on in AM ume] in source Serum or data Plasma Calcium 8.5 - mg/dL Normal No Oct 28 [Mass/vol 10.1 informati 2016 9:05 ume] in on in AM Serum or source Plasma data Chloride 98 - 107 mmoL/L Normal No Oct 28 [Moles/vo informati 2016 9:05 lume] in on in AM Serum or source Plasma data Carbon 21.0 - mmoL/L Normal No Oct 28 dioxide, 32.0 informati 2017 9:05 total on in AM [Moles/vo source lume] in data Serum or Plasma Creatinin 0.55 - mg/dL Normal No Oct 28 e 1.02 informati 2016 9:05 [Mass/vol on in AM ume] in source Serum or data Plasma Creatinin 50 - 200 ML/MIN Normal No Oct 28 e renal informati 2016 9:05 clearance on in AM source predicted data by Cockcroft -Gault formula Estimated 59- ML/MIN No REFERENCE Oct 28 informati RANGE: 2017 9:05 glomerula on in >60 AM r source ML/MIN/1. filtratio data 73 SQUARE n rate METERSIf (GF this patient is -A merican, then multiply theresult by 1.210. Globulin 1.3 - 3.2 gm/dL High No Oct 28 [Mass/vol informati 2016 9:05 ume] in on in AM Serum source data Glucose 74 - 106 mg/dL High No Oct 28 [Mass/vol informati 2016 9:05 ume] in on in AM Serum or source Plasma data Potassium 3.5 - 5.1 mmoL/L Normal No Oct 28 informati 2016 9:05 [Moles/vo on in AM lume] in source Serum or data Plasma Sodium 136 - 145 mmoL/L Normal No Oct 28 [Moles/vo informati 2016 9:05 lume] in on in AM Serum or source Plasma data Aspartate 15 - 37 U/L Normal No Oct 28 informati 2016 9:05 aminotran on in AM sferase source [Enzymati data c activity/ volume] in Serum or Plasma Alanine 12 - 78 U/L Normal No Oct 28 aminotran informati 2016 9:05 sferase on in AM [Enzymati source c data activity/ volume] in Serum or Plasma Protein 6.4 - 8.2 gm/dL Normal No Oct 16 [Mass/vol informati 2016 9:05 ume] in on in AM Serum or source Plasma data Lipase [Enzymatic activity/volume] in Serum or Plasma Observa Value Referen Units Interpr Notes Date tion ce etation Range Lipase 73 - 393 U/L Low No Oct 16 [Enzymati informati 2016 9:05 c on in AM activity/ source volume] data in Serum or Plasma Lactate [Moles/volume] in Blood Observa Value Referen Units Interpr Notes Date tion ce etation Range Lactate 0.4 - 2.0 mmol/L Normal No Oct 15 [Moles/vo informati 2016 5:25 lume] in on in AM Blood source data Urinalysis dipstick W Reflex Microscopic panel in Urine Observa Value Referen Units Interpr Notes Date tion ce etation Range Appeara CLEAR CLEAR No No No Oct 27 nce of informa informa informa 2017 Urine tion in tion in tion in 5:25 AM source source source data data data Amorpho 1+ NONE No No No Oct 27 us informa informa informa 2017 sedimen tion in tion in tion in 5:25 AM t source source source [Presen data data data ce] in Urine sedimen t by Light microsc opy Bacteri 1+ O No No No Oct 27 a informa informa informa 2017 [Presen tion in tion in tion in 5:25 AM ce] in source source source Urine data data data sedimen t by Light microsc opy Bilirub NEGATIV NEG No No No Oct 27 in E informa informa informa 2016 [Presen tion in tion in tion in 5:25 AM ce] in source source source Urine data data data by Test strip Erythro 1+ NEG No Abnorma No Oct 15 cytes informa l informa 2016 [Presen tion in tion in 5:25 AM ce] in source source Urine data data Color YELLOW YELLOW No No No Oct 15 of informa informa informa 2017 Urine tion in tion in tion in 5:25 AM source source source data data data Glucose NEG No No No Oct 15 [Mass/vol informati informati informati 2017 5:25 ume] in on in on in on in AM Urine by source source source Test data data data strip Ketones NEGATIV NEG mg/dL No No Oct 27 E informa informa 2016 [Presen tion in tion in 5:25 AM ce] in source source Urine data data by Automat ed test strip Mucus NEGATIV NEG No No No Oct 27 [Presen E informa informa informa 2016 ce] in tion in tion in tion in 5:25 AM Urine source source source sedimen data data data t by Light microsc opy Nitrite NEGATIV NEG No No No Oct 27 E informa informa informa 2016 [Presen tion in tion in tion in 5:25 AM ce] in source source source Urine data data data by Test strip pH of 5.0 - 8.5 No Normal No Oct 27 Urine informati informati 2017 5:25 on in on in AM source source data data Protein NEG mg/dL High No Oct 27 [Mass/vol informati 2016 5:25 ume] in on in AM Urine by source Automated data test strip Erythro 3-5 0 rbc/hpf No No Oct 27 cytes informa informa 2016 [Presen tion in tion in 5:25 AM ce] in source source Urine data data sedimen t by Light microsc opy Specific 1.005 - No Normal No Oct 27 gravity 1.030 informati informati 2017 5:25 of Urine on in on in AM source source data data Epithel 5-10 0 - 5 #/hpf No No Oct 27 ial informa informa 2016 cells.s tion in tion in 5:25 AM quamous source source data data [Presen ce] in Urine sedimen t by Microsc opy high power field Urobili 1.0 NEG E.U./dL No No Oct 27 nogen informa informa 2016 [Presen tion in tion in 5:25 AM ce] in source source Urine data data by Test strip Leukocy [3 O wbc/hpf No No Oct 27 isaac wbc/hpf informa informa 2016 [#/volu ; 5 tion in tion in 5:25 AM me] in wbc/hpf source source Urine ] data data Amylase [Enzymatic activity/volume] in Serum or Plasma Observa Value Referen Units Interpr Notes Date tion ce etation Range Amylase 25 - 115 U/L Normal No Oct 27 [Enzymati informati 2016 5:25 c on in AM activity/ source volume] data in Serum or Plasma Comprehensive metabolic 2000 panel in Serum or Plasma Observa Value Referen Units Interpr Notes Date tion ce etation Range Albumin/G 1.1 - 1.8 No Low No Oct 27 lobulin informati informati 2016 5:25 [Mass on in on in AM ratio] in source source Serum or data data Plasma Albumin 3.4 - 5.0 gm/dL Normal No Oct 27 [Mass/vol informati 2016 5:25 ume] in on in AM Serum or source Plasma data Alkaline 46 - 116 U/L Normal No Oct 27 phosphata informati 2016 5:25 se on in AM [Enzymati source c data activity/ volume] in Serum or Plasma Bilirubin 0.2 - 1.0 mg/dL Normal No Oct 27 .total informati 2016 5:25 [Mass/vol on in AM ume] in source Serum or data Plasma Urea 7 - 18 mg/dL Normal No Oct 27 nitrogen informati 2016 5:25 [Mass/vol on in AM ume] in source Serum or data Plasma Calcium 8.5 - mg/dL Normal No Oct 27 [Mass/vol 10.1 informati 2016 5:25 ume] in on in AM Serum or source Plasma data Chloride 98 - 107 mmoL/L Normal No Oct 27 [Moles/vo informati 2016 5:25 lume] in on in AM Serum or source Plasma data Carbon 21.0 - mmoL/L Normal No Oct 27 dioxide, 32.0 informati 2017 5:25 total on in AM [Moles/vo source lume] in data Serum or Plasma Creatinin 0.55 - mg/dL Low No Oct 27 e 1.02 informati 2016 5:25 [Mass/vol on in AM ume] in source Serum or data Plasma Creatinin 50 - 200 ML/MIN Normal No Oct 27 e renal informati 2016 5:25 clearance on in AM source predicted data by Cockcroft -Gault formula Estimated 59- ML/MIN No REFERENCE Oct 27 informati RANGE: 2017 5:25 glomerula on in >60 AM r source ML/MIN/1. filtratio data 73 SQUARE n rate METERSIf (GF this patient is -A merican, then multiply theresult by 1.210. Globulin 1.3 - 3.2 gm/dL High No Oct 27 [Mass/vol informati 2016 5:25 ume] in on in AM Serum source data Glucose 74 - 106 mg/dL High No Oct 27 [Mass/vol informati 2016 5:25 ume] in on in AM Serum or source Plasma data Potassium 3.5 - 5.1 mmoL/L Normal No Oct 272016 5:25 [Moles/vo on in AM lume] in source Serum or data Plasma Sodium 136 - 145 mmoL/L Normal No Oct 27 [Moles/vo ati 2016 5:25 lume] in on in AM Serum or source Plasma data Aspartate 15 - 37 U/L Normal No Oct 272016 5:25 aminotran on in AM sferase source [Enzymati data c activity/ volume] in Serum or Plasma Alanine 12 - 78 U/L Normal No Oct 27 aminotran 2016 5:25 sferase on in AM [Enzymati source c data activity/ volume] in Serum or Plasma Protein 6.4 - 8.2 gm/dL Normal No Oct 27 [Mass/vol informati 2016 5:25 ume] in on in AM Serum or source Plasma data Lipase [Enzymatic activity/volume] in Serum or Plasma Observa Value Referen Units Interpr Notes Date tion ce etation Range Lipase 73 - 393 U/L Normal No Oct 27 [Enzymati ati 2016 5:25 c on in AM activity/ source volume] data in Serum or Plasma Urinalysis dipstick W Reflex Microscopic panel in Urine Observa Value Referen Units Interpr Notes Date tion ce etation Range Appeara CLEAR CLEAR No No No Oct 27 nce of informa informa informa 2016 Urine tion in tion in tion in 5:25 AM source source source data data data Bilirub NEGATIV NEG No No No Oct 27 in E informa informa informa 2016 [Presen tion in tion in tion in 5:25 AM ce] in source source source Urine data data data by Test strip Erythro 1+ NEG No Abnorma No Oct 27 cytes informa l 2016 [Presen tion in tion in 5:25 AM ce] in source source Urine data data Color YELLOW YELLOW No No No Oct 27 of informa informa informa 2016 Urine tion in tion in tion in 5:25 AM source source source data data data Glucose NEG No No No Aug 15 [Mass/vol informati informati informati 2016 5:25 ume] in on in on in on in AM Urine by source source source Test data data data strip Ketones NEGATIV NEG mg/dL No No Oct 15 E informa inform2016 [Presen tion in tion in 5:25 AM ce] in source source Urine data data by Automat ed test strip Mucus NEGATIV NEG No No No Oct 27 [Presen E informa informa 2016 ce] in tion in tion in tion in 5:25 AM Urine source source source sedimen data data data t by Light microsc opy Nitrite NEGATIV NEG No No No Oct 27 E informa informa inform2016 [Presen tion in tion in tion in 5:25 AM ce] in source source source Urine data data data by Test strip pH of 5.0 - 8.5 No Normal No Oct 15 Urine informati informati 2016 5:25 on in on in AM source source data data Protein NEG mg/dL High No Oct 27 [Mass/vol inform2016 5:25 ume] in on in AM Urine by source Automated data test strip Specific 1.005 - No Normal No Oct 27 gravity 1.030 informati informati 2016 5:25 of Urine on in on in AM source source data data Urobili 1.0 NEG E.U./dL No No Oct 15 nogen inform2016 [Presen tion in tion in 5:25 AM ce] in source source Urine data data by Test strip CBC W Auto Differential panel in Blood Observa Value Referen Units Interpr Notes Date tion ce etation Range Basophils 0 - 0.2 K/MM3 Normal No Oct 15 informati 2016 5:25 [#/volume on in AM ] in source Blood by data Automated count Basophils 0.1 - 2.0 % Normal No Oct 15 /100 informati 2016 5:25 leukocyte on in AM s in source Blood by data Automated count Eosinophi 0.0 - 0.4 K/mm3 High No Oct 15 ls informati 2016 5:25 [#/volume on in AM ] in source Blood by data Automated count Eosinophi 0.1 - % Normal No Oct 15 ls/100 12.0 informati 2016 5:25 leukocyte on in AM s in source Blood by data Automated count Granulocy 1.8 - 7.8 K/mm3 High No Oct 27 isaac informati 2016 5:25 [#/volume on in AM ] in source Blood by data Automated count Granulocy 37.0 - % Normal No Oct 27 isaac/100 80.0 informati 2017 5:25 leukocyte on in AM s in source Blood by data Automated count Hematocri 37.0 - % Normal No Oct 27 t [Volume 47.0 informati 2016 5:25 on in AM Fraction] source of Blood data Hemoglobi 12.2 - g/dL Normal No Oct 27 n 16.2 informati 2017 5:25 [Mass/vol on in AM ume] in source Blood data Lymphocyt 0.7 - 4.5 K/mm3 Normal No Oct 27 es informati 2016 5:25 [#/volume on in AM ] in source Unspecifi data ed specimen by Automated count Lymphocyt 10 - 50.0 % Normal No Oct 27 es informati 2016 5:25 [#/volume on in AM ] in source Unspecifi data ed specimen by Automated count Erythrocy 27 - 31.2 pg Normal No Oct 27 te mean informati 2016 5:25 corpuscul on in AM ar source hemoglobi data n [Entitic mass] Erythrocy 31.8 - g/dl Normal No Oct 27 te mean 35.4 informati 2016 5:25 corpuscul on in AM ar source hemoglobi data n concentra tion [Mass/vol ume] by Automated count Erythrocy 82.2 - fl Normal No Oct 27 te mean 97.8 informati 2016 5:25 corpuscul on in AM ar volume source [Entitic data volume] by Automated count Monocytes 0.1 - 1.0 K/mm3 Normal No Oct 27 informati 2016 5:25 [#/volume on in AM ] in source Blood by data Automated count Monocytes 1.7 - 9.3 % Normal No Oct 27 /100 informati 2017 5:25 leukocyte on in AM s in source Blood by data Automated count Platelet 7.4 - fl Normal No Oct 27 mean 10.4 informati 2016 5:25 volume on in AM [Entitic source volume] data in Blood by Automated count Platelets 142 - 424 K/mm3 Normal No Oct 27 informati 2017 5:25 [#/volume on in AM ] in source Blood data Erythrocy 4.2 - 5.4 M/mm3 Normal No Aug 15 isaac informati 2017 5:25 [#/volume on in AM ] in source Amniotic data fluid Erythrocy 11.5 - % Normal No Oct 15 te 17.5 informati 2017 5:25 distribut on in AM ion width source [Entitic data volume] by Automated count Leukocyte 4.8 - K/MM3 High No Oct 15 s 10.8 informati 2016 5:25 [#/volume on in AM ] in source Blood data CBC W Auto Differential panel in Blood Observa Value Referen Units Interpr Notes Date tion ce etation Range Basophils 0 - 0.2 K/MM3 Normal No Oct 11 informati 2017 6:21 [#/volume on in AM ] in source Blood by data Automated count Basophils 0.1 - 2.0 % Normal No Oct 23 /100 informati 2017 6:21 leukocyte on in AM [...] No Oct 23 t [Volume 47.0 informati 2016 6:21 on in AM Fraction] source of Blood data Hemoglobi 12.2 - g/dL No No Oct 23 n 16.2 informati informati 2017 6:21 [Mass/vol on in on in AM ume] in source source Blood data data Lymphocyt 0.7 - 4.5 K/mm3 Normal No Oct 23 es informati 2016 6:21 [#/volume on in AM ] in source Unspecifi data ed specimen by Automated count Lymphocyt 10 - 50.0 % Low No Oct 23 es informati 2016 6:21 [#/volume on in AM [...] Automated count Platelet 7.4 - fl Normal Oct 23 mean 10.4 informati 2017 6:21 [...] Normal No Oct 23 te 17.5 informati 2016 6:21 distribut on in AM ion width [...] mg/dL Low No Oct 23 nitrogen informati 2017 6:21 [Mass/vol on in AM ume] in [...] Normal No Oct 23 e renal informati 2016 6:21 clearance on in AM source predicted [...] g/dL Normal No Oct 22 n 16.2 inform2016 [Mass/vol on in 12:22 PM ume] in [...] 142 - 424 K/mm3 Normal No Oct 22 informati 2016 [#/volume on in 12:22 PM [...] 116 U/L Normal No Oct 20 phosphata 2016 se on in 11:15 AM [Enzymati [...] mmoL/L Normal No Oct 20 dioxide, 32.0 inform2016 total on in 11:15 AM [Moles/vo source lume] in data Serum or Plasma Creatinin 0.55 - mg/dL Low No Oct 20 e 1.02 inform2016 [Mass/vol on in 11:15 AM ume] in [...] High No Oct 20 t [Volume 47.0 2016 on in 11:15 AM Fraction] source [...] data fluid Erythrocy 11.5 - % Normal Oct 20 te 17.5 2016 distribut on [...] No Sep 11 adotropin informati informati informati 2016 9:30 .beta on in on in on [...] Observa Value Referen Units Interpr Notes Date ti ce etation Range Basophils 0 - 0.2 K/MM3 Normal No Aug 31 informati 2016 4:21 [#/volume on in PM ] in source Blood by data Automated count Basophils 0.1 - 2.0 % Normal No Aug 19 /100 informati [...] mg/dL Normal No Aug 16 .total informati 2016 2:45 [Mass/vol on in [...] -Gault formula Estimated 59- ML/MIN No REFERENCE Micah 16 informati RANGE: 2017 2:45 glomerula on in [...] - 2.0 % Normal No Aug 28 / inform2016 2:45 leukocyte on in PM s [...] % Normal No Aug 28 isaac/100 80.0 inform2016 2:45 leukocyte on in [...] Urobili 2.0 NEG E.U./dL No No Aug 16 nogen informa informa 2016 [Presen tion in [...] data ETHNICI C No No No No Apr 9 TY informa informa informa informa 2012 [...] data SPECIME BLOOD No No No No Apr 9 N informa informa informa informa 2012 SOURCE tion in tion in tion in tion in 10:50 source source source source AM data data data data CHART [id number] No No No No Apr 9 NUMBER informa informa informa informa 2012 [...] data ETHNICI C No No No No Apr 9 TY informa informa informa informa 2012 [...] source AM data data data data CHART [id number] No No No No Jun 21 NUMBER [...] nce with the Health Insuran ce Priti luna and Account ability Act.
--- OUTSIDE RECORDS SUMMARY | 2017-01-03 11:09 | External Medical Summary Rpt ---
[...] source AM data data data data CHART [id number] No No No No Apr 9 NUMBER [...] source AM data data data data CHART [id number] No No No No Jun 21 NUMBER [...]
[2017-01-03 11:23] LABS: HEMOGLOBIN 16.5 g/dL (12.2-16.2); LYMPH # 2.3 K/mm3 (0.7-4.5); LYMPH % 29.5 % (10-50.0)
--- NOTE | 2017-01-03 11:28 | RADIOLOGY REPORT PS360 ---
KNEE-3 VIEWS-LT HISTORY: PAIN UNABLE TO BEND Patient Age: 36 years: Female Ordering Physician: Zoya Ferguson MD TECHNIQUE: 3 views left knee COMPARISON none: FINDINGS Osseous structures appear intact with no fracture. Joint spaces adequately maintained on this nonweightbearing film.. No joint effusion . Bones well mineralized. No osteochondral defects or evident loose bodies.. If locking or restricted ROM persist patient May benefit from MR to further evaluate for meniscus abnormalities/internal derangement. IMPRESSION: Negative left knee . No fracture nor joint effusion . Joint space adequate maintained
[2017-01-03] MEDS ORDERED: TORADOL10 MG PO (12:50)
--- NOTE | 2017-01-03 12:50 | CARDIOVASCULAR REPORT ---
"Venous Exam Indications: 729.5 Pain in limb. IMPRESSIONS 1. There is no evidence of significant Reflux. 2. No evidence of deep or superficial vein thrombosis involving the left lower extremity Left lower extremity venous duplex evaluation. Doppler flow study including spectral analysis, color and oneill scale imaging. Location: Bedside. Patient status: Emergency department. Tables: Venous flow and imaging: + +-------+ + |Location |Overall|Flow properties | + +-------+ + |Left common femoral |Patent |Normal phasicity; spontaneous; | | | |normal augmentation; compressible | + +-------+ + |Left saphenofemoral junction|Patent |Compressible | + +-------+ + |Left profunda femoral |Patent |Compressible | + +-------+ + |Left femoral |Patent |Normal phasicity; spontaneous; | | | |normal augmentation; compressible | + +-------+ + |Left greater saphenous |Patent |Normal phasicity; spontaneous; | | | |normal augmentation; compressible | + +-------+ + |Left popliteal |Patent |Normal phasicity; spontaneous; | | | |normal augmentation; compressible | + +-------+ + |Left posterior tibial |Patent |Compressible | + +-------+ + |Left peroneal |Patent |Compressible | + +-------+ + |Left gastrocnemius |Patent |Compressible | + +-------+ + |Left soleal |Patent |Compressible | + +-------+ + (Report amended ) Electronically signed by: Toni Jacobs [id number]"
[2017-01-03 13:10] VITALS: BP 138/71
== END 2017-01-03 13:11 | disposition home or self-care (01) ==
LOC: ER 10:15
PROVIDERS: Emergency Medicine
DX: M79.662 Pain in left lower leg (principal); Z88.0 Allergy status to penicillin; F17.210 Nicotine dependence, cigarettes, uncomplicated

== ENCOUNTER → 2017-02-03 | Outpatient (CLI) | payer MEDICAID ==
[~2017-02-03] MED LIST changes: +CLARITIN 10MG T10 MG PO; +FLONASE 50 MCG16 GM; +MUCINEX1200 MG PO; +PROMETHAZINE D118 ML PO; +TORADOL10 MG PO
--- NOTE | 2017-02-03 14:29 | RADIOLOGY REPORT PS360 ---
FEMUR-LT-2 VIEWS HISTORY: follow-up distal femur fracture DISTAL FEMUR FX ORDERING PHYSICIAN: Terry Lujan MD PATIENT AGE: 36 years COMPARISON: MRI of 01-29 FINDINGS: The MRI demonstrated a longitudinal area of increased T2 signal involving the distal femur. There is a subtle longitudinal area of decreased density involving the distal femur slightly medial which may be related to the nondisplaced fracture. Images of the knee with different obliquities may confirm this finding. No other significant anomalies are evident. IMPRESSION: Subtle longitudinal lucency of the distal femur which may correspond to the nondisplaced fracture as seen on MRI.
== END ==
LOC: RAD 13:32
DX: S72.492A Other fracture of lower end of left femur, initial encounter for closed fracture (principal)

== ENCOUNTER 2017-02-14 20:00 | Emergency (ER) | payer MEDICAID ==
[~2017-02-14] VITALS: Ht 160 cm; Wt 68.0 kg
[~2017-02-14 20:00] MED LIST changes: -CLARITIN 10MG T10 MG PO; -FLONASE 50 MCG16 GM; -MUCINEX1200 MG PO; -PROMETHAZINE D118 ML PO
--- OUTSIDE RECORDS SUMMARY | 2017-02-14 20:31 | External Medical Summary Rpt | CCD ---
Author Author , BRAYDEN OWEN Address Unknown Phone [email or web address] Purpose Continuity of Care Document - 10-28-2016 through 2016 Problems Code Diagnosis DOS Provider Status D72.829 Elevated 11-05-2016 white blood cell count, unspecified F32.9 Major 11-05-2016 depressive disorder, single episode, unspecified F41.9 Anxiety 11-05-2016 disorder, unspecified I10 Essential 11-05-2016 (primary) hypertensio n K91.86 Retained 11-05-2016 cholelithia sis following cholecystec kota M19.90 Unspecified 11-05-2016 osteoarthri tis, unspecified site M54.30 Sciatica, 11-05-2016 unspecified side R82.4 Acetonuria 11-05-2016 K80.50 Calculus of 10-28-2016 bile duct without cholangitis or cholecystit is without obstruction K29.80 DUODENITIS WITHOUT BLEEDING K80.20 CALCULUS OF GALLBLADDER W/O CHOLECYSTIT IS W/O OBSTRUCTION K81.9 CHOLECYSTIT IS, UNSPECIFIED M25.562 PAIN IN LEFT KNEE R10.9 UNSPECIFIED ABDOMINAL PAIN R11.10 VOMITING, UNSPECIFIED R11.11 VOMITING WITHOUT NAUSEA R11.2 NAUSEA WITH VOMITING, UNSPECIFIED Results Labs Lab Lab Date Result Refere Interp Status Commen Order Detail nces retati t Range on D-dimer (01-03-2017 11:10) D-dimer = 322 0-400 complet 017 ng/mL ed 11:10 Comment: The D-Dimer values are presented in units of mass(ng/mL) of Comment: D-Dimer units(DDU). Comment: Comment: This test has been FDA approved as an aid in the assessment Comment: and evaluation of suspected DIC, and thromboembolic events Comment: including PE and DVT. However, it does not have approval Comment: for cut-off values for the exclusion of these conditions. Basic metabolic panel (01-03-2017 11:10) Serum 10-22-2 = 140 136-145 complet sodium 017 mmoL/L ed measure 11:10 ment Serum = 4.4 3.5-5.1 complet potassi 017 mmoL/L ed um 11:10 measure ment Serum = 96 74-106 complet or 017 mg/dL ed plasma 11:10 glucose measure ment (mas Estimat = 138 59- complet ed 017 ML/MIN ed glomeru 11:10 lar filtrat ion rate (GF Comment: REFERENCE RANGE: >60 ML/MIN/1.73 SQUARE METERS Comment: If this patient is -Syrian, then multiply the Comment: result by 1.210. Estimat = 166 50-200 complet ion of 017 ML/MIN ed creatin 11:10 ine renal clearan ce Serum = 0.5 0.55-1. complet or 017 mg/dL 02 ed plasma 11:10 creatin ine measure ment ( Carbon = 26 21.0-32 complet dioxide 017 mmoL/L .0 ed 11:10 measure ment Serum = 105 98-107 complet or 017 mmoL/L ed plasma 11:10 chlorid e measure ment (mo Serum = 9.2 8.5-10. complet or 017 mg/dL 1 ed plasma 11:10 calcium measure ment (mas Serum = 9 7-18 complet or 017 mg/dL ed plasma 11:10 urea nitroge n measure men CBC w auto diff (01-03-2017 11:10) Blood = 8.0 4.8-10. complet leukocy 017 K/MM3 8 ed isaac 11:10 count (number /volume ) Automat = 12.9 11.5-17 complet ed 017 % .5 ed erythro 11:10 cyte distrib ution width Red = 5.55 4.2-5.4 complet blood 017 M/mm3 ed cell 11:10 count Blood = 251 142-424 complet platele 017 K/mm3 ed t count 11:10 Automat = 7.8 7.4-10. complet ed 017 fl 4 ed blood 11:10 platele t mean volume dulce [place] % = 5.2 % 1.7-9.3 complet 017 ed 11:10 Absolut = 0.4 0.1-1.0 complet e 017 K/mm3 ed monocyt 11:10 e count Automat = 90.2 82.2-97 complet ed 017 fl .8 ed erythro 11:10 cyte mean corpusc ular v Automat = 33.0 31.8-35 complet ed 017 g/dl .4 ed erythro 11:10 cyte mean corpusc ular h Mean = 29.8 27-31.2 complet corpusc 017 pg ed ular 11:10 hemoglo bin (MCH) determ Lymphoc = 29.5 10-50.0 complet yte 017 % ed count, 11:10 blood, automat ed Absolut = 2.3 0.7-4.5 complet e 017 K/mm3 ed lymphoc 11:10 yte count Blood = 16.5 12.2-16 complet hemoglo 017 g/dL .2 ed bin 11:10 measure ment (mass/v olum Blood = 50.1 37.0-47 complet hematoc 017 % .0 ed rit 11:10 (volume fractio n) Granulo = 61.8 37.0-80 complet cyte 017 % .0 ed percent 11:10 age Blood = 4.9 1.8-7.8 complet granulo 017 K/mm3 ed cytes 11:10 automat ed count (numb Automat = 3.3 % 0.1-12. complet ed 017 0 ed blood 11:10 eosinop hils/10 0 leukocy t Automat = 0.3 0.0-0.4 complet ed 017 K/mm3 ed blood 11:10 eosinop hil count Baso % = 0.3 % 0.1-2.0 complet 017 ed 11:10 Automat = 0.0 0-0.2 complet ed 017 K/MM3 ed blood 11:10 basophi l count (count/ vo Ca-I SerPl ISE-sCnc (10-28-2016 16:38) Ca-I TCON 4.6-5.1 complet SerPl 017 Multipl ed ISE-[facility] 16:38 e SCM c orders. Tests consoli dated. L mg/dL Ca-I Bld-nc (10-28-2016 16:38) Ca-I 4.5 4.6-5.1 complet Bld-n 017 mg/dL ed c 16:38 Lactate [facility] (10-28-2016 16:38) Lactate 0.8 complet 017 mmol/L ed Bld-[facility] 16:38 c Comment: normal range normal range normal range
--- OUTSIDE RECORDS SUMMARY | 2017-02-14 20:31 | External Medical Summary Rpt | CCD ---
Author Author , BRAYDEN OWEN Address Unknown Phone .[employer] Purpose Continuity of Care Document - 10-28-2016 [...] SQUARE METERS Comment: If this patient is -Bangladeshi, then multiply the Comment: result by 1.210. [...] blood 11:10 platele t mean volume dulce Phillips % = 5.2 % 1.7-9.3 complet 017 [...] TCON 4.6-5.1 complet SerPl 017 Multipl ed ISE-[facility] 16:38 e SCM c orders. Tests consoli dated. L mg/dL Ca-I Bld-nc (10-28-2016 16:38) Ca-I 4.5 4.6-5.1 complet Bld-n 017 mg/dL ed c 16:38 [facility] (10-28-2016 16:38) Lactate 0.8 complet 017 mmol/L ed Bld-[facility] 16:38 c Comment: normal range normal range normal range
--- NOTE | 2017-02-14 20:32 | Urgent Treatment Center Report ---
History of Present Issue Date/Time Seen by Provider 02/14/17 2016 Visit Reason Pt arrived:Walked Presenting Problem:PT C/O OF CONGESTION, HEADACHE, AND COUGH X'S 1 WK Location if Accident: Onset of symptoms date/time:/ or onset unknown for:MEDICAL HX UNKNOWN Have you (or family members/close friends) recently traveled outside the [place]? N If Yes, where/when: Have you had exposure to infectious disease within the past month? TB? Other? Specify: Patient state that she has been having cough, sinus pain and congestion along with headache that has continued to get worse over the last week States that she has been taking over the counter medication but nothing has helped her with the cough ALLERGIES Coded Allergies: Penicillins (10/22/16) Home Medications Active Scripts PROMETHAZINE HCL (Phenergan 25MG Tab (Geq)) 25 MG PO Q6HP PRN N/V #14 TAB Prov: 10/27/16 ONDANSETRON HCL (Zofran 4MG Tab) 4 MG PO Q6HP PRN NAUSEA AND VOMITING #20 TAB Prov: 11/16/16 Reported Medications CLONIDINE HCL (Clonidine 0.1MG) 0.1 MG PO NIGHTLY #30 Meloxicam (Meloxicam 7.5MG) 7.5 MG PO DAILY #30 Sertraline Hcl (Sertraline 50MG) 25 MG PO DAILY #45 History Medical History General CAD? No Angina: No AK: No Hypertension? No Hyperlipidemia? No CHF? No DVT? No PE? No COPD? No Asthma? No Anemia? No GERD? No Gastric ulcers? No GI Bleed? No Hernia? No Thyroid Problems? No Hypothyroidism? No CVA? No Seizures? No Diabetes? No Renal Insuffiency? No UTI? No Stones? No BPH? No GB Disease: Yes Nephritic Syndrome? No Asplenia? No Hepatitis? No Sickle Cell Disease? No Arthritis? No Migraines? No Cataracts? No Glaucoma? No MRSA? Yes HIV? No TB? No Anxiety? No Depression? Yes Cancer? Yes Site: CERVICAL More? No Immunization HX DT/Tetanus 5-10 Years Ago Flu Flu Season Pneumonia Refuses Surgical Hx Previous Surgery?Y CYROTHERAPY/ABD. PAP FOOT RIGHT TOES Tubal Ligation APPENDECTEMY CHOLECYSTECTOMY Family History Family HX Diabetes No CAD Yes Hypertension Yes Hyperlipidemia No Cancer Yes TB No Social History Smoking Hx Smoker: Current Every Day Smoker Tobacco: Yes Type Cigarettes Packs/day 1 1/2 - 2 Packs Alcohol Alcohol: No Review of Systems All Other Systems Reviewed and Negative ENT nose congestion. Respiratory cough, denies shortness of breath, denies wheezing Physical Exam Vital Signs Vital Signs Date Time Temp Pulse Resp B/P Pulse O2 O2 Flow FiO2 Ox Delivery Rate 02/14 2007 98.4 101 20 126/92 98 General Appearance normal appearance, WD/WN, no apparent distress Ear, Nose, Throat Clear drainage noted from nose, throat red, irritated Respiratory Status Yes: trachea midline, chest symmetrical, non tender chest. No: respiratory distress. Lung Sounds bilateral: normal breath sounds, lungs clear. Cardiovascular normal exam, regular rate/rhythm, no peripheral edema Neurologic alert, normal exam, oriented x 3 Medical Decision Making LABS/Meds/Orders Pt receiving controlled substance in ED? No Departure Departure Time of Disposition 2030 Disposition DC Home or Self Care(routine) Clinical Impression Primary Impression: Allergic rhinitis Qualifiers: Chronicity: unspecified Allergic rhinitis trigger: unspecified Allergic rhinitis seasonality: unspecified seasonality Qualified Code: J30.9 - Allergic rhinitis, unspecified Condition STABLE Referrals Jaya Martin APRN (Family): 3 Days-Call Office if no improvement Patient Instructions Cough, DI for Nasal Congestion, Sinus Headache Additional Instructions * No sign of bacterial infection. Likely viral. Virus can take 7-14 days to run their course *Nasal saline and bulb syringe or nose florencia to remove nasal drainage and help with nasal congestion. Hard to eat, drink, or sleep with nasal congestion so important to keep nose cleaned out. * Monitor Temp. Tylenol and/or Ibuprofen as needed. ER if fever is no less than 101 despite alternating Tylenol and Ibuprofen * Encourage fluids, water, Gatorade, powerade, pedialyte if infant/toddler/or child * Warm salt water gargles for throat irritation *Warm fluids *Sore throat lozenges *Sleep elevated *humidifier or vaporizer Lots of rest Increase fluids, water, Gatorade, powerade *Flonase 2 sprays each nostril daily but may take 2-3 days to notice improvement with it Follow up IMMEDIATELY for new or worsening of symptoms OR no noticeable improvement over the next 48-72 hours. 911 immediately for any life threatening symptoms such as chest pain or difficulty breathing Discharge Counseling Counseled pt/family regarding diagnosis, medications/RX, home care, follow up needs Prescriptions Current Visit Scripts Loratadine (Claritin 10MG) 10 MG PO DAILY #30 TAB Fluticasone Propionate (Flonase 50 Mcg Nasal [place]) 2 SPRAY NA DAILY #1 BOT Guaifenesin (Mucinex) 1,200 MG PO BID #20 TER PROMETHAZINE/DEXTROMETHORPHAN (Promethazine-Dm Syrup) 5 ML PO Q4HP PRN cough #150 SYR at 203
--- OUTSIDE RECORDS SUMMARY | 2017-02-14 20:32 | External Medical Summary Rpt | CCD ---
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 Role Phone [facility] Unavailable Unavailable SERVICE, [facility] Unavailable Unavailable [facility] Unavailable Unavailable INC, [facility], Unavailable Unavailable [facility] Un[facility] Un[facility], [facility], Unavailable Unavailable PLLC, [facility] Purpose Continuity of Care Document - 07-03-2016 through 2016 Problems Code Diagnosis DOS Provider Status [id number] PAIN IN 01-03-2017 [facility] [id number] PAIN IN 01-03-2017 [facility] R109 UNSPECIFIED 11-23-2016 [facility] PAIN INC R112 NAUSEA WITH 11-23-2016 [facility] UNSPECIFIED INC R1011 RIGHT UPPER 11-16-2016 [facility] R1110 VOMITING 11-16-2016 [facility] Z720 TOBACCO USE 11-16-2016 [facility] Z9049 ACQUIRED 11-16-2016 [facility] SPEC PARTS [facility] DIGESTIVE TRACT K2980 DUODENITIS 10-28-2016 [facility] BLEEDING [facility] K8050 CALCULUS BD 10-28-2016 [facility] W/O [facility], CHOLANGITIS PLLC /CHOLECYST W/O OBST K9186 RETAINED 10-28-2016 [facility] SIS INC FOLLOWING CHOLECT E405VBG OTH SPEC 10-28-2016 [facility] COMP SURG & [facility]BUL[facility] MEDICAL SERVICE CARE NEC INIT ENC K910 VOMITING 10-27-2016 [facility] GASTROINTES INC TINAL SURGERY S45674 OTHER LONG 10-27-2016 [facility] CURRENT INC DRUG THERAPY K8012 CALCULUS GB 10-22-2016 [facility] W/ACUTE & PHYSICIANS CHRON GROUP CHOLECYST W/O OBST K8020 CALCULUS GB 10-22-2016 [place] W/[facility]ICAL CHOLECYSTIT IMAGING ASS IS W/O OBSTRUCTION K8081 OTHER 10-22-2016 [facility] SIS WITH PLLC OBSTRUCTION K812 ACUTE 10-22-2016 [facility] IS WITH INC CHRONIC CHOLECYSTIT IS K819 CHOLECYSTIT 10-22-2016 [facility] UNSPECIFIED [facility] K8000 CALCULUS GB 10-20-2016 [facility] W/ACUTE [facility] CHOLECYST INC W/O OBSTRUCTION [id number] ENCOUNTER 10-20-2016 [facility] PREPROCEDUR INC AL LABORATORY EXAM K8010 CALCULUS GB 10-13-2016 [facility] W/CHRONIC PHYSICIANS CHOLECYST GROUP W/O OBSTRUCTION R1111 VOMITING 09-11-2016 [facility] NAUSEA INC J0100 ACUTE 09-10-2016 [facility] MAXILLARY PHYSICIANS SINUSITIS GROUP UNSPECIFIED R05 COUGH 08-31-2016 [facility] R631 POLYDIPSIA 08-31-2016 [facility] Medications Na ND Rx Da Fi Fi Am Da Di Ph RX Ph St me C No te ll ll ou ys ag ar # ys at rm s nt no ma ic us Or Da si cy ia de te s n re d CT 59 10 11 10 5 00 HO Ac ED 74 -2 -2 .0 00 ME ti NI 60 3- 4- 00 06 TO ve SO 17 20 20 09 WN NE 50 17 17 66 9 26 PH 20 AR MA MG CY TA OF BL ET CY NT HI AN A ON 00 10 11 12 4 00 HO Ac DA 37 -1 -1 .0 00 ME ti NS 87 9- 7- 00 06 TO ve ET 73 20 20 09 WN RO 29 17 17 64 N 3 83 PH OD AR T MA 4 CY MG OF TA BL CY ET NT HI AN A CL 68 10 11 30 30 00 HO Ac ON 00 -1 -1 .0 00 ME ti ID 10 8- 7- 00 06 TO ve IN 23 20 20 09 WN E 70 17 17 63 HC 3 94 PH L AR 0. MA 1 CY MG OF TA BL CY ET NT HI AN A SE 65 10 11 45 30 00 HO Ac RT 86 -1 -1 .0 00 ME ti RA 20 8- 7- 00 06 TO ve LI 01 20 20 09 WN NE 20 17 17 63 5 93 PH HC AR L MA 50 CY MG OF TA CY BL NT ET HI AN A KE 00 10 11 6. 3 00 WA Ac TO 09 -2 -1 00 00 L- ti RO 30 2- 7- 0 07 MA ve LA 31 20 20 51 RT C 40 17 17 67 10 1 77 PH AR MG MA CY TA BL #5 ET 91 ON 00 09 10 20 5 00 HO Ac DA 37 -0 -0 .0 00 ME ti NS 87 5- 6- 00 06 TO ve ET 73 20 20 09 WN RO 29 17 17 36 N 3 24 PH OD AR T MA 4 CY MG OF TA BL CY ET NT HI AN A ME 00 09 10 21 7 00 HO Ac TO 09 -0 -0 .0 00 ME ti CL 32 5- 6- 00 06 TO ve OP 20 20 20 09 WN RA 30 17 17 36 UT 5 26 PH DE AR MA 10 CY MG OF TA CY BL NT ET HI AN A CT 68 09 10 14 4 00 HO [...] 2 66 PH CE AR TA MA UT CY NO PH OF EN CY 5- [...] NT ET HI AN A CL 68 06 07 [...] OF ET CY NT HI AN A CT 68 06 07 12 3 00 WA [...] 10 3- 7- [address] 00 20 20 08 WN ED 50 [...] NT ET HI AN A CL 68 04 05 30 30 00 HO Ac ON 00 -1 -1 .0 00 ME ti ID 10 8- 2- 00 06 TO ve IN 23 20 20 08 WN E 70 17 17 36 HC 3 49 PH L AR 0. MA 1 CY MG OF TA BL CY ET NT HI AN A ME 68 04 05 30 30 00 HO Ac LO 38 -1 -1 .0 00 ME ti XI 20 8- 2- 00 06 TO ve CA 05 20 20 08 WN M 00 17 17 36 7. 5 48 PH 5 AR MG MA CY TA BL OF ET CY NT HI AN A SE 65 04 05 45 30 00 HO Ac RT 86 -1 -1 .0 00 ME ti RA 20 8- 2- 00 06 TO ve LI 01 20 20 08 WN NE 20 17 17 36 5 50 PH HC AR L MA 50 CY MG OF TA CY BL NT ET HI AN A ME 68 03 04 [...] BL CY ET NT HI AN A Encounters Encounter Start End Date Code Location Performer Type Date [facility] Ignacio 7 [facility] AM[facility] - Sandee 7 [facility] - 7 7 [facility] - 7 7 [facility] AM[facility] - 7 7 [facility] AM[facility] - 7 7 [facility] AM[facility] - 7 7 [facility] AM[facility]IA - 7 7 [facility] AMELIA - 7 7 [facility] AM[facility] - 7 7 [facility]
--- OUTSIDE RECORDS SUMMARY | 2017-02-14 20:32 | External Medical Summary Rpt | CCD ---
Author Author , BRAYDEN OWEN Address Unknown Phone [email or web address] Immunization Name Date Rout CVX Reac Dose Comm Prov Is Faci e tion ent ider Refu lity Give sed n Infl 08-1 141 999 Hist GSHA No GSHA uenz 0-20 oric NE NE a, 16 al Seas Info onal rmat ion - Sour ce Unsp ecif ied
--- OUTSIDE RECORDS SUMMARY | 2017-02-14 20:32 | External Medical Summary Rpt | CCD ---
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 Name Role Phone [facility] Unavailable Unavailable SERVICE, [facility] Unavailable Unavailable [facility], [facility] Unavailable Unavailable [facility], [facility], Unavailable Unavailable [facility] Un[facility]available [facility], [facility], Unavailable Unavailable PLL[facility], [facility] Purpose Continuity of Care Document - 07-03-2016 through 2016 Problems Code Diagnosis DOS Provider Status [id number] PAIN IN 01-03-2017 [facility] [id number] PAIN IN 01-03-2017 [facility] R109 UNSPECIFIED 11-23-2016 [facility] PAIN [facility] R112 NAUSEA WITH 11-23-2016 [facility] UNSPECIFIED INC R1011 RIGHT UPPER 11-16-2016 [facility] R1110 VOMITING 11-16-2016 [facility] Z720 TOBACCO USE 11-16-2016 [facility] Z9049 ACQUIRED 11-16-2016 [facility] SPEC PARTS [facility] DIGESTIVE TRACT K2980 DUODENITIS 10-28-2016 [facility] BLEEDING [facility] K8050 CALCULUS BD 10-28-2016 [facility] W/O [facility], CHOLANGITIS PLL[facility] /CHOLECYST W/O OBST K9186 RETAINED 10-28-2016 [facility] S[facility] FOLLOWING CHOLECT M622HQS OTH SPEC 10-28-2016 [facility] COMP SURG & [facility]BUL[facility] MEDICAL SERVICE CARE NEC INIT ENC K910 VOMITING 10-27-2016 [facility] GASTROINTES INC TINAL SURGERY D53613 OTHER LONG 10-27-2016 [facility] CURRENT INC DRUG THERAPY K8012 CALCULUS GB 10-22-2016 [facility] W/ACUTE & PHYSICIANS CHRON GROUP CHOLECYST W/O OBST K8020 CALCULUS GB 10-22-2016 [facility]ICAL CHOLECYSTIT IMAGING ASS IS W/O OBSTRUCTION K8081 OTHER 10-22-2016 [facility] SIS WITH PLL[facility] OBSTRUCTION K812 ACUTE 10-22-2016 [facility] IS WITH INC CHRONIC CHOLECYSTIT IS K819 CHOLECYSTIT 10-22-2016 [facility] IS ANESTH OF UNSPECIFIED THE BLUE K8000 CALCULUS GB 10-20-2016 [facility] W/ACUTE [facility] CHOLECYST INC W/O OBSTRUCTION A17883 ENCOUNTER 10-20-2016 [facility] PREPROCEDUR INC AL LABORATORY EXAM K8010 CALCULUS GB 10-13-2016 [facility] W/CHRONIC PHYSICIANS CHOLECYST GROUP W/O OBSTRUCTION R1111 VOMITING 09-11-2016 [facility] NAUSEA INC J0100 ACUTE 09-10-2016 [facility] MAXILLARY PHYSICIANS SINUSITIS GROUP UNSPECIFIED R05 COUGH 08-31-2016 [facility] R631 POLYDIPSIA 08-31-2016 [facility] Medications Na ND Rx Da Fi Fi Am Da Di Ph RX Ph St me C No te ll ll ou ys ag ar # ys at rm s nt no ma ic us Or Da si cy ia de te s n re d MS 59 10 11 10 5 00 HO [...] 09 WN RA 30 17 17 36 OR 5 26 PH DE AR MA 10 [...] 2 66 PH CE AR TA MA OR CY NO PH OF EN CY 5- [...] OF ET CY NT HI AN A MS 68 06 [...] End Date Code Location Performer Type Date [facility] Ignacio 7 [facility] - Sandee 7 [facility] - [facility] 7 [facility] - 7 7 [facility] - 7 7 [facility] - [facility] 7 [facility] - [facility] - [facility] 7 [facility] - [facility] 7 [facility] - 7 7 [facility]
--- OUTSIDE RECORDS SUMMARY | 2017-02-14 20:32 | External Medical Summary Rpt | CCD ---
Author Author , BRAYDEN OWEN Address Unknown Phone [email or web address] Immunization Name Date Rout CVX Reac Dose Comm Prov Is Faci e tion ent ider Refu lity Give sed n Infl 08-1 141 999 Hist GSHA No GSHA uenz 0-20 oric NE NE a, 16 al Seas Info onal rmat ion - Sour ce Unsp ecif ied
[2017-02-14] MEDS ORDERED: PROMETHAZINE D118 ML PO (20:34)
[2017-02-14] MEDS ORDERED: FLONASE 50 MCG16 GM (20:34)
[2017-02-14] MEDS ORDERED: CLARITIN 10MG T10 MG PO (20:34)
[2017-02-14] MEDS ORDERED: MUCINEX1200 MG PO (20:34)
--- OUTSIDE RECORDS SUMMARY | 2017-02-14 20:34 | External Medical Summary Rpt ---
Author Author [facility] Garcia, [employer] Address Unknown Phone Unavailable Results Fibrin D-dimer FEU [Mass/volume] in Platelet poor plasma Observa Value Referen Units Interpr Notes Date tion ce etation Range Fibrin 0 - 400 ng/mL Normal The Jan 03 D-dimer D-Dimer 2016 FEU values 11:10 AM [Mass/vol are ume] in presented Platelet in units poor of plasma mass(ng/m L) ofD-Dimer units(DDU ).This test has been FDA approved as an aid in the assessmen tand evaluatio n of suspected DIC, and thromboem bolic eventsinc luding PE and DVT. However, it does not have approvalf or cut-off values for the exclusion of these condition s. Basic metabolic panel in Blood Observa Value Referen Units Interpr Notes Date tion ce etation Range Urea 7 - 18 mg/dL Normal No Jan 03 nitrogen informati 2016 [Mass/vol on in 11:10 AM ume] in source Serum or data Plasma Calcium 8.5 - mg/dL Normal No Jan 03 [Mass/vol 10.1 informati 2017 ume] in on in 11:10 AM Serum or source Plasma data Chloride 98 - 107 mmoL/L Normal No Jan 03 [Moles/vo informati 2016 lume] in on in 11:10 AM Serum or source Plasma data Carbon 21.0 - mmoL/L Normal No Jan 03 dioxide, 32.0 informati 2017 total on in 11:10 AM [Moles/vo source lume] in data Serum or Plasma Creatinin 0.55 - mg/dL Low No Jan 03 e 1.02 informati 2017 [Mass/vol on in 11:10 AM ume] in source Serum or data Plasma Creatinin 50 - 200 ML/MIN Normal No Jan 03 e renal informati 2017 clearance on in 11:10 AM source predicted data by Cockcroft -Gault formula Estimated 59- ML/MIN No REFERENCE Jan 03 informati RANGE: 2017 glomerula on in >60 11:10 AM r source ML/MIN/1. filtratio data 73 SQUARE n rate METERSIf (GF this patient is -A merican, then multiply theresult by 1.210. Glucose 74 - 106 mg/dL Normal No Jan 03 [Mass/vol informati 2016 ume] in on in 11:10 AM Serum or source Plasma data Potassium 3.5 - 5.1 mmoL/L Normal No Jan [id number] [Moles/vo on in 11:10 AM lume] in source Serum or data Plasma Sodium 136 - 145 mmoL/L Normal No Jan 03 [Moles/vo informati 2016 lume] in on in 11:10 AM Serum or source Plasma data CBC W Auto Differential panel in Blood Observa Value Referen Units Interpr Notes Date tion ce etation Range Basophils 0 - 0.2 K/MM3 Normal No Jan [id number] [#/volume on in 11:10 AM ] in source Blood by data Automated count Basophils 0.1 - 2.0 % Normal No Jan 03 /2016 leukocyte on in 11:10 AM s in source Blood by data Automated count Eosinophi 0.0 - 0.4 K/mm3 Normal No Jan 03 ls ati 2016 [#/volume on in 11:10 AM ] in source Blood by data Automated count Eosinophi 0.1 - % Normal No Jan 03 ls/100 12.0 inform2016 leukocyte on in 11:10 AM s in source Blood by data Automated count Granulocy 1.8 - 7.8 K/mm3 Normal No Jan 03 isaac inform2016 [#/volume on in 11:10 AM ] in source Blood by data Automated count Granulocy 37.0 - % Normal No Jan 03 isaac/100 80.0 informati 2016 leukocyte on in 11:10 AM s in source Blood by data Automated count Hematocri 37.0 - % High No Jan 03 t [Volume 47.0 ati 2016 on in 11:10 AM Fraction] source of Blood data Hemoglobi 12.2 - g/dL High No Jan 03 n 16.2 informati 2016 [Mass/vol on in 11:10 AM ume] in source Blood data Lymphocyt 0.7 - 4.5 K/mm3 Normal No Jan 03 es 2016 [#/volume on in 11:10 AM ] in source Unspecifi data ed specimen by Automated count Lymphocyt 10 - 50.0 % Normal No Jan 03 es inform2016 [#/volume on in 11:10 AM ] in source Unspecifi data ed specimen by Automated count Erythrocy 27 - 31.2 pg Normal No Jan 03 te mean 2016 corpuscul on in 11:10 AM ar source hemoglobi data n [Entitic mass] Erythrocy 31.8 - g/dl Normal No Jan 03 te mean 35.4 2016 corpuscul on in 11:10 AM ar source hemoglobi data n concentra tion [Mass/vol ume] by Automated count Erythrocy 82.2 - fl Normal No Jan 03 te mean 97.8 inform2016 corpuscul on in 11:10 AM ar volume source [Entitic data volume] by Automated count Monocytes 0.1 - 1.0 K/mm3 Normal No Jan [id number] [#/volume on in 11:10 AM ] in source Blood by data Automated count Monocytes 1.7 - 9.3 % Normal No Jan 03 /100 2016 leukocyte on in 11:10 AM s in source Blood by data Automated count Platelet 7.4 - fl Normal No Jan 03 mean 10.4 inform2016 volume on in 11:10 AM [Entitic source volume] data in Blood by Automated count Platelets 142 - 424 K/mm3 Normal No Jan [id number] [#/volume on in 11:10 AM ] in source Blood data Erythrocy 4.2 - 5.4 M/mm3 High No Jan 03 isaac inform2016 [#/volume on in 11:10 AM ] in source Amniotic data fluid Erythrocy 11.5 - % Normal No Jan 03 te 17.5 2016 distribut on in 11:10 AM ion width source [Entitic data volume] by Automated count Leukocyte 4.8 - K/MM3 Normal No Jan 03 s 10.8 informati 2016 [#/volume on in 11:10 AM ] in source Blood data Amylase [Enzymatic activity/volume] in Serum or Plasma Observa Value Referen Units Interpr Notes Date tion ce etation Range Amylase 25 - 115 U/L Normal No Sep 4 [Enzymati informati 2016 5:20 c on in AM activity/ source [...] - 5.1 mmoL/L Normal No Sep 4 inform2016 5:20 [Moles/vo on in AM lume] in source Serum or data Plasma Sodium 136 - 145 mmoL/L Normal No Sep 4 [Moles/vo inform2016 5:20 lume] in on in AM Serum or source Plasma data Aspartate 15 - 37 U/L Normal No Sep 4 inform2016 5:20 aminotran on in AM sferase source [Enzymati data c activity/ volume] in Serum or Plasma Alanine 12 - 78 U/L Normal No Sep 4 aminotran inform2016 5:20 sferase on in AM [Enzymati source c data activity/ volume] in Serum or Plasma Protein 6.4 - 8.2 gm/dL Normal No Sep 4 [Mass/vol inform2016 5:20 ume] in on in AM Serum or source Plasma data Lipase [Enzymatic activity/volume] in Serum or Plasma Observa Value Referen Units Interpr Notes Date tion ce etation Range Lipase 73 - 393 U/L Normal No Sep 4 [Enzymati informati 2016 5:20 c on in AM activity/ source volume] data in Serum or Plasma CBC W Auto Differential panel in Blood Observa Value Referen Units Interpr Notes Date tion ce etation Range Basophils 0 - 0.2 K/MM3 Normal No Sep 4 2016 5:20 [#/volume on in AM ] in source Blood by data Automated count Basophils 0.1 - 2.0 % Normal No Sep 4 /100 inform2016 5:20 leukocyte on in AM s in source Blood by data Automated count Eosinophi 0.0 - 0.4 K/mm3 High No Sep 4 ls inform2016 5:20 [#/volume on in AM ] in source Blood by data Automated count Eosinophi 0.1 - % Normal No Sep 4 ls/100 12.0 informati 2016 5:20 leukocyte on in AM s in source Blood by data Automated count Granulocy 1.8 - 7.8 K/mm3 High No Sep 4 isaac inform2016 5:20 [#/volume on in AM ] in source Blood by data Automated count Granulocy 37.0 - % Normal No Sep 4 isaac/100 80.0 informati 2016 5:20 leukocyte on in AM s in source Blood by data Automated count Hematocri 37.0 - % High No Sep 4 t [Volume 47.0 informati 2017 5:20 on in AM Fraction] source of Blood data Hemoglobi 12.2 - g/dL High No Sep 4 n 16.2 informati 2017 5:20 [Mass/vol on in AM ume] in source Blood data Lymphocyt 0.7 - 4.5 K/mm3 Normal No Sep 4 es informati 2017 5:20 [#/volume on in AM ] in source Unspecifi data ed specimen by Automated count Lymphocyt 10 - 50.0 % Normal No Sep 4 es informati 2017 5:20 [#/volume on in AM ] in source Unspecifi data ed specimen by Automated count Erythrocy 27 - 31.2 pg Normal No Sep 4 te mean informati 2017 5:20 corpuscul on in AM ar source hemoglobi data n [Entitic mass] Erythrocy 31.8 - g/dl Normal No Sep 4 te mean 35.4 informati 2017 5:20 corpuscul on in AM ar source hemoglobi data n concentra tion [Mass/vol ume] by Automated count Erythrocy 82.2 - fl Normal No Sep 4 te mean 97.8 informati 2017 5:20 corpuscul on in AM ar volume source [Entitic data volume] by Automated count Monocytes 0.1 - 1.0 K/mm3 Normal No Sep 4 informati 2017 5:20 [#/volume on in AM ] in source Blood by data Automated count Monocytes 1.7 - 9.3 % Normal No Sep 4 /100 informati 2017 5:20 leukocyte on in AM s in source Blood by data Automated count Platelet 7.4 - fl Normal No Sep 4 mean 10.4 informati 2017 5:20 volume on in AM [Entitic source volume] data in Blood by Automated count Platelets 142 - 424 K/mm3 Normal No Sep 4 informati 2017 5:20 [#/volume on in AM ] in source Blood data Erythrocy 4.2 - 5.4 M/mm3 Normal No Sep 4 isaac informati 2017 5:20 [#/volume on in AM ] in source Amniotic data fluid Erythrocy 11.5 - % Normal No Sep 4 te 17.5 informati 2017 5:20 distribut on in AM ion width [...] No Sep 4 adotropin informati informati informati 2017 5:05 .beta on in on in on in AM subunit source source source [Units] data data data in 24 hour Urine CBC W Auto Differential panel in Blood Observa Value Referen Units Interpr Notes Date tion ce etation Range Basophils 0 - 0.2 K/MM3 Normal No Oct 16 informati 2016 9:05 [#/volume on in AM ] in source Blood by data Automated count Basophils 0.1 - 2.0 % Normal No Oct 16 /100 informati 2017 9:05 leukocyte on in AM s in source Blood by data Automated count Eosinophi 0.0 - 0.4 K/mm3 High No Oct 28 ls informati 2016 9:05 [#/volume on in AM ] in source Blood by data Automated count Eosinophi 0.1 - % Normal No Oct 28 ls/100 12.0 informati 2016 9:05 leukocyte on in AM s in source Blood by data Automated count Granulocy 1.8 - 7.8 K/mm3 High No Oct 16 isaac informati 2017 9:05 [#/volume on in AM ] in source Blood by data Automated count Granulocy 37.0 - % High No Oct 28 isaac/100 80.0 informati 2017 9:05 leukocyte on in AM [...] K/mm3 Normal No Oct 28 es informati 2016 9:05 [#/volume on in AM ] in source Unspecifi data ed specimen by Automated count Lymphocyt 10 - 50.0 % Low No Oct 28 es informati 2016 9:05 [#/volume on in AM ] in source Unspecifi data ed specimen by Automated count Erythrocy 27 - 31.2 pg Normal No Oct 28 te mean informati 2016 9:05 corpuscul on in AM ar source hemoglobi data n [Entitic mass] Erythrocy 31.8 - g/dl Normal No Oct 28 te mean 35.4 informati 2016 9:05 corpuscul on in AM ar source hemoglobi data n concentra tion [Mass/vol ume] by Automated count Erythrocy 82.2 - fl Normal No Oct 28 te mean 97.8 informati 2016 9:05 corpuscul on in AM ar volume source [Entitic data volume] by Automated count Monocytes 0.1 - 1.0 K/mm3 Normal No Oct 28 informati 2016 9:05 [#/volume on in AM ] in source Blood by data Automated count Monocytes 1.7 - 9.3 % Normal No Oct 28 informati 2017 9:05 leukocyte on in AM s in source Blood by data Automated count Platelet 7.4 - fl Normal No Oct 28 mean 10.4 informati 2017 9:05 volume on in AM [Entitic source volume] data in Blood by Automated count Platelets 142 - 424 K/mm3 Normal No Oct 28 informati 2016 9:05 [#/volume on in AM ] in source Blood data Erythrocy 4.2 - 5.4 M/mm3 Normal No Oct 28 isaac informati 2017 9:05 [#/volume on in AM ] in source Amniotic data fluid Erythrocy 11.5 - % Normal Oct 28 te 17.5 informati 2016 9:05 distribut on in AM ion width source [Entitic data volume] by Automated count Leukocyte 4.8 - K/MM3 High No Oct 28 s 10.8 informati 2016 9:05 [#/volume on in AM ] in source Blood data Differential panel, method unspecified - Observa Value Referen Units Interpr Notes Date tion ce etation Range Eosinophi 0 - 3 % Normal No Oct 28 ls/100 informati 2017 9:05 leukocyte on in AM s in source Blood by data Manual count LYMPH 9 10 - 50 % Low Oct 28 inform2016 tion in 9:05 AM source data Monocytes 2 - 9 % Normal No Oct 28 informati 2016 [...] 76 % High No Oct 28 ls informati 2017 9:05 [#/volume on in AM [...] mg/dL High No Oct 28 .total informati 2016 9:05 [Mass/vol on in AM ume] in source Serum or data Plasma Urea 7 - 18 mg/dL Normal No Oct 28 nitrogen informati 2017 9:05 [Mass/vol on in AM ume] in source Serum or data Plasma Calcium 8.5 - mg/dL Normal No Oct 28 [Mass/vol 10.1 informati 2017 9:05 ume] in on in AM Serum [...] Normal No Oct 28 e 1.02 informati 2017 9:05 [Mass/vol on in AM [...] - 5.1 mmoL/L Normal No Oct 28 inform2016 9:05 [Moles/vo on in AM lume] in [...] 6.4 - 8.2 gm/dL Normal No Oct 28 [Mass/vol informati 2016 9:05 ume] in on in AM Serum or source Plasma data Lipase [Enzymatic activity/volume] in Serum or Plasma Observa Value Referen Units Interpr Notes Date tion ce etation Range Lipase 73 - 393 U/L Low No Oct 28 [Enzymati informati 2016 9:05 c on in AM activity/ source volume] data in Serum or Plasma Lactate [Moles/volume] in Blood Observa Value Referen Units Interpr Notes Date tion ce etation Range Lactate 0.4 - 2.0 mmol/L Normal No Oct 27 [Moles/vo informati 2016 [...] Oct 27 in E informa informa informa 2017 [Presen tion in tion in tion in 5:25 AM ce] in source source source Urine data data data by Test strip Erythro 1+ NEG No Abnorma No Oct 27 cytes informa l informa 2016 [Presen tion in tion in 5:25 AM ce] in source source Urine data data Color YELLOW YELLOW No No No Oct 27 of informa informa informa 2017 Urine tion in tion in tion in 5:25 AM source source source data data data Glucose NEG No No No Oct 27 [Mass/vol informati informati informati 2017 5:25 ume] [...] Oct 27 [Presen E informa informa informa 2017 ce] in tion in tion in tion in 5:25 AM Urine source source source sedimen data data data t by Light microsc opy Nitrite NEGATIV NEG No No No Oct 27 E informa informa informa 2017 [Presen tion in tion in tion in 5:25 AM ce] in source source source Urine data data data by Test strip pH of 5.0 - 8.5 No Normal No Oct 15 Urine informati informati 2017 5:25 on in on in AM source source data data Protein NEG mg/dL High No Oct 27 [Mass/vol informati 2017 5:25 ume] in on in AM Urine [...] No No Oct 27 ial informa informa 2017 cells.s tion in tion in 5:25 AM [...] mg/dL Normal No Oct 27 .total informati 2017 5:25 [Mass/vol on in AM [...] 3.5 - 5.1 mmoL/L Normal No Oct 27 informati 2016 5:25 [Moles/vo on in AM lume] in source Serum or data Plasma Sodium 136 - 145 mmoL/L Normal No Oct 27 [Moles/vo informati 2016 5:25 lume] in on in AM Serum or source Plasma data Aspartate 15 - 37 U/L Normal No Oct 27 informati 2016 5:25 aminotran on in AM sferase source [Enzymati data c activity/ volume] in Serum or Plasma Alanine 12 - 78 U/L Normal No Oct 27 aminotran informati 2016 5:25 sferase on in AM [Enzymati [...] 393 U/L Normal No Oct 27 [Enzymati informati [...] Abnorma No Oct 27 cytes informa l informa 2016 [Presen tion in tion in 5:25 AM ce] in source source Urine data data Color YELLOW YELLOW No No No Oct 27 of informa informa informa 2017 Urine tion in tion in tion in 5:25 AM source source source data data data Glucose NEG No No No Oct 27 [Mass/vol informati informati informati 2016 5:25 ume] [...] data Protein NEG mg/dL High No Oct 15 [Mass/vol inform2016 5:25 ume] in on in [...] - 0.2 K/MM3 Normal No Oct 15 2016 5:25 [#/volume on in AM ] in source Blood by data Automated count Basophils 0.1 - 2.0 % Normal No Oct 27 /100 informati 2016 5:25 leukocyte on in AM s in source Blood by data Automated count Eosinophi 0.0 - 0.4 K/mm3 High No Oct 27 ls informati 2016 5:25 [#/volume on in AM ] in source Blood by data Automated count Eosinophi 0.1 - % Normal No Oct 27 ls/100 12.0 informati 2016 5:25 leukocyte on in AM s in source Blood by data Automated count Granulocy 1.8 - 7.8 K/mm3 High No Oct 27 isaac informati 2016 5:25 [#/volume on in AM ] in source Blood by data Automated count Granulocy 37.0 - % Normal No Oct 27 isaac/100 80.0 informati 2016 5:25 leukocyte on in AM s in source Blood by data Automated count Hematocri 37.0 - % Normal No Oct 27 t [Volume 47.0 informati 2016 5:25 on in AM Fraction] source of Blood data Hemoglobi 12.2 - g/dL Normal No Oct 27 n 16.2 informati 2016 5:25 [Mass/vol on in AM ume] in source Blood data Lymphocyt 0.7 - 4.5 K/mm3 Normal No Oct 27 es ati 2016 5:25 [#/volume on in AM ] in source Unspecifi data ed specimen by Automated count Lymphocyt 10 - 50.0 % Normal No Oct 27 es ati 2016 5:25 [#/volume on in AM ] in source Unspecifi data ed specimen by Automated count Erythrocy 27 - 31.2 pg Normal No Oct 27 te mean inform2016 5:25 corpuscul on in AM ar source [...] 0.1 - 1.0 K/mm3 Normal No Oct 272016 5:25 [#/volume on in AM ] in source Blood by data Automated count Monocytes 1.7 - 9.3 % Normal No Oct 27 informati 2016 5:25 leukocyte on in AM s in source Blood by data Automated count Platelet 7.4 - fl Normal No Oct 27 mean 10.4 informati 2016 5:25 volume on in AM [Entitic source volume] data in Blood by Automated count Platelets 142 - 424 K/mm3 Normal No Oct 272016 5:25 [#/volume on in AM ] in source Blood data Erythrocy 4.2 - 5.4 M/mm3 Normal No Oct 27 isaac informati 2016 5:25 [#/volume on in AM ] in source Amniotic data fluid Erythrocy 11.5 - % Normal No Oct 27 te 17.5 informati 2016 5:25 distribut on in AM ion width source [Entitic data volume] by Automated count Leukocyte 4.8 - K/MM3 High No Oct 27 s 10.8 informati 2016 5:25 [#/volume on in AM ] in source Blood data CBC W Auto Differential panel in Blood Observa Value Referen Units Interpr Notes Date tion ce etation Range Basophils 0 - 0.2 K/MM3 Normal No Oct 232016 6:21 [#/volume on in AM ] in source Blood by data Automated count Basophils 0.1 - 2.0 % Normal Oct 23 informati 2016 6:21 leukocyte on in AM s in source Blood by data Automated count Eosinophi 0.0 - 0.4 K/mm3 Normal No Oct 23 ls informati 2016 6:21 [#/volume on in AM ] in source Blood by data Automated count Eosinophi 0.1 - % Normal No Oct 23 ls/100 12.0 informati 2017 6:21 leukocyte on in AM s in source Blood by data Automated count Granulocy 1.8 - 7.8 K/mm3 High No Oct 23 isaca informati 2016 6:21 [#/volume on in AM [...] No Oct 23 n 16.2 informati informati 2016 6:21 [Mass/vol on in on in AM [...] Normal No Oct 23 te mean informati 2016 6:21 corpuscul on in AM ar source hemoglobi data n [Entitic mass] Erythrocy 31.8 - g/dl Normal No Oct 23 te mean 35.4 informati 2016 6:21 corpuscul on in AM ar source [...] Normal No Oct 23 mean 10.4 informati 2016 6:21 volume on in AM [Entitic source volume] data in Blood by Automated count Platelets 142 - 424 K/mm3 Normal No Oct 23 inform2016 6:21 [#/volume on in AM ] in source Blood data Erythrocy 4.2 - 5.4 M/mm3 Normal No Oct 23 isaac informati 2016 6:21 [#/volume on in AM [...] - 50 % Normal No Oct 23 informa 2016 tion in 6:21 AM source data Monocytes 2 - 9 % Normal No Oct 23 /100 informati 2016 6:21 leukocyte on in AM [...] 76 % High No Oct 23 ls ati 2016 6:21 [#/volume on in AM ] in source Blood by data Automated count Cells No #CELLS No No Oct 23 Counted informati informati informati 2016 6:21 Total [#] on in on in on in AM in Blood source source source data data data Comprehensive metabolic 2000 panel in Serum or Plasma Observa Value Referen Units Interpr Notes Date tion ce etation Range Albumin/G 1.1 - 1.8 No Low No Oct 23 lobulin informati informati 2016 6:21 [Mass on in on in AM ratio] in source source Serum or data data Plasma Albumin 3.4 - 5.0 gm/dL Low No Oct 23 [Mass/vol ati 2016 6:21 ume] in on in AM [...] gm/dL High No Oct 23 [Mass/vol informati 2017 6:21 ume] in on in AM Serum source data Glucose 74 - 106 mg/dL High No Oct 23 [Mass/vol informati 2017 6:21 ume] in on in AM Serum or source Plasma data Potassium 3.5 - 5.1 mmoL/L Normal No Oct 23 informati 2017 6:21 [Moles/vo on in AM lume] in source Serum or data Plasma Sodium 136 - 145 mmoL/L Normal No Oct 23 [Moles/vo informati 2017 6:21 lume] in on in AM Serum or source Plasma data Aspartate 15 - 37 U/L Normal No Oct 23 informati 2017 6:21 aminotran on in AM sferase source [Enzymati data c activity/ volume] in Serum or Plasma Alanine 12 - 78 U/L Normal No Oct 23 aminotran informati 2017 6:21 sferase on in AM [Enzymati source c data activity/ volume] in Serum or Plasma Protein 6.4 - 8.2 gm/dL Normal No Oct 11 [Mass/vol informati 2017 6:21 ume] in on [...] mg/dL Low No Oct 22 nitrogen informati 2017 [Mass/vol on in 12:22 PM [...] 9.3 % Normal No Oct 22 /100 2016 leukocyte on in 12:22 PM s [...] Leukocyte 4.8 - K/mm3 Normal No Oct 10 s 10.8 informati 2017 [#/volume on [...] - 2.0 % Normal No Oct 20 inform2016 leukocyte on in 11:15 AM s [...] 0 - 0.2 K/MM3 Normal No Aug [id number] 4:21 [#/volume on in PM ] in [...] 31 bin A1c 7.0 NON-LALITHA 2017 in [facility] 4:21 PM Blood LEVEL< 7% CONTROL LED [...] U/L Normal No Aug 28 phosphata informati 2017 2:45 se on in PM [Enzymati source [...] Calcium 8.5 - mg/dL Normal No Aug 16 [Mass/vol 10.1 informati 2017 2:45 ume] in [...] - 0.2 K/MM3 Normal No Aug 16 2016 2:45 [#/volume on in PM ] in source Blood by data Automated count Basophils 0.1 - 2.0 % Normal No Aug 16 /100 inform2016 2:45 leukocyte on in PM s in source Blood by data Automated count Eosinophi 0.0 - 0.4 K/mm3 Normal No Aug 16 ls inform2016 2:45 [#/volume on in PM ] [...] Normal No Aug 16 t [Volume 47.0 2016 2:45 on in PM Fraction] source of Blood data Hemoglobi 12.2 - g/dL Normal No Aug 16 n 16.2 inform2016 2:45 [Mass/vol on in PM ume] in source Blood data Lymphocyt 0.7 - 4.5 K/mm3 Normal No Aug 16 es 2016 2:45 [#/volume on in PM ] in source Unspecifi data ed specimen by Automated count Lymphocyt 10 - 50.0 % Normal No Aug 16 es inform2016 2:45 [#/volume on in PM ] in source Unspecifi data ed specimen by Automated count Erythrocy 27 - 31.2 pg Normal No Aug 16 te mean inform2016 2:45 corpuscul on in PM ar source [...] BILIRUB Aug 28 in informa l IN 2016 [Presen tion in CONFIRM 2:21 PM ce] [...] Jun 9 OR informa informa informa informa 2011 tion [...] source AM data data data data CHART [id number] No No No No Jun 21 NUMBER [...] source AM data data data data CHART [id number] No No No No Jun 21 NUMBER informa informa informa informa 2012 tion in tion in tion in tion in 10:50 source source source source AM data data data data Reagin Pending No No No \.br\Th Apr 9 Ab informa informa informa is 2011 [Presen tion in tion in tion in report 10:50 ce] in source source source contain AM Unspeci data data data s fied patient specime n by informa VDRL tion that must be protect ed in accorda nce with the Health Ins[employer] Portabi lity and Account ability Act.
--- OUTSIDE RECORDS SUMMARY | 2017-02-14 20:34 | External Medical Summary Rpt ---
[...] - 7.8 K/mm3 Normal No Jan 03 isaca inform2016 [#/volume on in 11:10 AM ] [...] K/mm3 High No Oct 23 isaac informati 2016 6:21 [...] 31 bin A1c 7.0 NON-LALITHA 2017 [facility] PM Blood LEVEL< 7% CONTROL LED [...] source AM data data data data CHART [id number] No No No No Jun 21 NUMBER [...] source AM data data data data CHART [id number] No No No No Jun 21 NUMBER [...]
[2017-02-14 20:40] VITALS: BP 124/86
== END 2017-02-14 20:40 | disposition home or self-care (01) ==
LOC: UTC 20:00
DX: J30.9 Allergic rhinitis, unspecified (principal); F17.210 Nicotine dependence, cigarettes, uncomplicated; F41.9 Anxiety disorder, unspecified

== ENCOUNTER → 2017-02-24 | Outpatient (CLI) | payer MEDICAID ==
[~2017-02-24] MED LIST changes: +CLARITIN 10MG T10 MG PO; +FLONASE 50 MCG16 GM; +MUCINEX1200 MG PO; +PROMETHAZINE D118 ML PO
--- NOTE | 2017-02-24 10:37 | RADIOLOGY REPORT PS360 ---
FEMUR-LT-2 VIEWS HISTORY: Follow-up fracture FX DISTAL FEMUR ORDERING PHYSICIAN: Terry Lujan MD PATIENT AGE: 36 years COMPARISON: 02/01/2017 and prior MRI of 01-14-17. FINDINGS: No obvious fracture or dislocation is evident. Previously noted subtle lucency of the distal femur is less apparent on today's exam. No lytic or blastic changes. IMPRESSION: Negative left femur.
== END ==
LOC: RAD 09:33
DX: S72.492A Other fracture of lower end of left femur, initial encounter for closed fracture (principal)